=== PATIENT | male | born 1965 | race Caucasian/White ===

== ENCOUNTER 2018-03-01 13:15 | Inpatient (IN) | payer MEDICARE, OTHER ==
[2018-03-01 16:35] VITALS: BMI 31.8
[2018-03-01] MEDS ORDERED: Patient's Own Med (Arformoterol [Brovana] 15 MCG) IH SCH (17:30)
[2018-03-01] MEDS ORDERED: Oxycodone/Acetaminophen 5/325 mg Tab PO PRN (17:33)
[2018-03-01] MEDS ORDERED: Nasal Spray(Ocean spray) NAS PRN (17:33)
[2018-03-01] MEDS: Morphine 15 mg Immediate Release Tab PO PRN (19:54)
[2018-03-01] MEDS: Budesonide 0.5 mg/2 ml Inhal Susp UD IH SCH (20:00)
[2018-03-01] MEDS: Albuterol-Ipratrop 3 mg / 0.5 (3 ml) UD IH PRN (20:00)
[2018-03-01] MEDS: Insulin NPH Human 100 Units/ml Inj SC SCH (21:25)
[2018-03-01] MEDS: Insulin Regular 100 units/ml SC SCH (21:27)
[2018-03-01] MEDS: Latanoprost 0.005% Opht SOUTION OU SCH (22:20)
--- NOTE | 2018-03-02 04:50 | CP.PCM.HP ---
History of Present Illness - History of Present Illness History of Present Illness: CC: Acute Rehab for after Right Foot BKA A 52 M with Multiple Medical Problems recently s/p transmetatarsal amputation of the right foot (02/02/18) due to wet gangrene to the right foot and bone exposure. He is on Dual antiplatelet for recent cardiac stent in September. During subsequent podiatry follow up while pt was in Subacute rehab stay [facility], he was found to have worsened foot wound filled with blood clot and bone exposure in the plantar of R foot.and patient was hospitalized in [facility] and BKA was done. Transferred to [facility] for Acute Rehab. Currently No complaint. Completed IV antibiotics for Amputated site Infection, and antifungal for Fungemia. Denies fever or chills. Present on Admission - Present on Admission Any Indicators Present on Admission: Yes History of Uncontrolled Diabetes: Yes Review of Systems - Review of Systems All systems: reviewed and no additional remarkable complaints except Review of Systems: As Per HPI Past Patient History - Infectious Disease Hx of Infectious Diseases: None - Tetanus Immunizations Tetanus Immunization: Up to Date - Past Medical History & Family History Past Medical History?: Yes - Past Social History Smoking Status: Never Smoked Alcohol: None Drugs: Denies - CARDIAC Hx Circulatory Problems: Yes (pvd) Hx Hypertension: Yes Hx Pacemaker: Yes (medtronic) Other/Comment: 2 stent placement - PULMONARY Hx Asthma: Yes Hx Chronic Obstructive Pulmonary Disease (COPD): Yes - NEUROLOGICAL HX Cerebrovascular Accident: Yes (r side weakness) - HEENT Hx HEENT Problems: Yes (BILATERAL EYE WITH BLURRY VISION) Hx Cataracts: Yes (HAD SX 09/25/12, r with iol) Hx Epistaxis: Yes Other/Comment: left eye cornea transplant,RENAL RETINOPATHY, glasses, blurred vision - RENAL Hx Dialysis: Yes Date of Last Dialysis Treatment: 02/28/18 Hx Renal Failure: Yes - ENDOCRINE/METABOLIC Hx Diabetes Mellitus Type 1: Yes Hx Diabetes Mellitus Type 2: Yes Hx Hypothyroidism: Yes - HEMATOLOGICAL/ONCOLOGICAL Hx AIDS: No Hx Anemia: Yes Hx Blood Transfusions: Yes Hx Blood Transfusion Reaction: No Hx Human Immunodeficiency Virus (HIV): No - INTEGUMENTARY Hx Dermatological Problems: Yes Other/Comment: generalized multiple skin discolorations and dry wounds over body , rle r ft dressing dry and intact all toes amputated chronic wound ulceration and foul odor heel ulceration gangrrene and bone exposed, rle skin discolorations +1 edema and tightness, inner right ankle1.5cm x 0.5cm deep red dry wound surrounded by pink red skin throbbing pain, healing small wounds to sacrum and b/l 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,left hand 3rd finger 0/7cm x 0.5cm round dry brown wound, dry brown wound 1.5cm x 1.5cm to ball of left foot not opened - MUSCULOSKELETAL/RHEUMATOLOGICAL Hx Falls: Yes - GASTROINTESTINAL Hx Gastrointestinal Disorders: Yes (cdif 05/13/17) Hx Gall Bladder Disease: Yes (CHOLECYSTECTOMY) Hx Gastroesophageal Reflux: Yes Hx Liver Failure: Yes (CKD) Hx Pancreatitis: Yes Other/Comment: colon polyps, poor appetite - GENITOURINARY/GYNECOLOGICAL Hx Genitourinary Disorders: Yes (esrd on HD MWF) Hx Hematuria: Yes Hx Prostate Problems: Yes (bph) Hx Urinary Tract Infection: Yes - PSYCHIATRIC Hx Substance Use: No - SURGICAL HISTORY Hx Surgeries: Yes - ANESTHESIA Hx Anesthesia: Yes Hx Anesthesia Reactions: No Hx Malignant Hyperthermia: No Has any member of the family had a problem w/ anesthesia?: No Meds Allergies/Adverse Reactions: Allergies Allergy/AdvReac Type Severity Reaction Status Date / Time insulin aspart [From Novolog] Allergy Intermediate RASH Verified 03/01/18 16:57 moxifloxacin Allergy Intermediate RASH Verified 03/01/18 16:57 Penicillins Allergy Intermediate RASH Verified 03/01/18 16:57 insulin regular Allergy ITCHING Verified 03/01/18 16:57 [From Novolin R Regular U-100 Insuln] Physical Exam - Constitutional Appears: Well, No Acute Distress, Chronically Ill - Head Exam Head Exam: ATRAUMATIC, NORMAL INSPECTION, NORMOCEPHALIC - Eye Exam Eye Exam: EOMI, Normal appearance, PERRL Pupil Exam: NORMAL ACCOMODATION, PERRL - ENT Exam ENT Exam: Mucous Membranes Moist, Normal Exam - Neck Exam Neck exam: Positive for: Normal Inspection - Respiratory Exam Respiratory Exam: Clear to Auscultation Bilateral, NORMAL BREATHING PATTERN - Cardiovascular Exam Cardiovascular Exam: REGULAR RHYTHM, +S1, +S2 - GI/Abdominal Exam GI & Abdominal Exam: Normal Bowel Sounds, Soft. absent: Tenderness - Extremities Exam Additional comments: Left BKA, and stump dressed and Clean - Back Exam Back exam: NORMAL INSPECTION - Neurological Exam Neurological exam: Alert, CN II-XII Intact, Normal Gait, Oriented x3, Reflexes Normal - Psychiatric Exam Psychiatric exam: Normal Affect, Normal Mood - Skin Skin Exam: Dry, Intact, Normal Color, Warm Results - Vital Signs Recent Vital Signs: Last Vital Signs Temp 97.9 F 03/01/18 20:08 Pulse 64 03/01/18 20:08 Resp 18 03/01/18 20:08 BP 105/59 L 03/01/18 20:08 Pulse Ox 99 03/01/18 20:08 - Labs Labs: Laboratory Results - last 24 hr 03/01/18 03/01/18 03/02/18 17:59 21:07 02:47 POC Glucose (mg/dL) 214 H 343 H 290 H Assessment & Plan (1) S/P BKA (below knee amputation) unilateral Assessment and Plan: Continue Wound Care Surgery Consult, Doctor Of Optometry Consulted Status: Acute (2) Hypertensive CKD, ESRD on dialysis Assessment and Plan: Nephro consult for HD MWF Status: Chronic Priority: Medium (3) Hypertension Status: Chronic Priority: Medium (4) Diabetes Status: Chronic Priority: Medium (5) CAD (coronary artery disease) Status: Chronic - Assessment and Plan (Free Text) Plan: Continue all Medications as Before Will adjust as needed
[2018-03-02] MEDS: Morphine 15 mg Immediate Release Tab PO PRN ×3 (06:10→19:55)
[2018-03-02] MEDS: Pantoprazole 20 mg EC Tab PO SCH (06:10)
[2018-03-02] MEDS: Levothyroxine 25 MCG TAB PO SCH (06:10)
--- NOTE | 2018-03-02 06:32 | CON ---
Copied To: Sebastian Wan MD Attending MD: Sebastian Wan MD DATE: 03/01/2018 NEPHROLOGY CONSULTATION LOCATION: [facility]. HISTORY OF PRESENT ILLNESS: The patient is a 52-year-old male with past medical history of CAD, status post stent (09/2017); hypertension; diabetes; peripheral vascular disease; status post CVA; EMELI, not on CPAP; COPD with several pulmonary hypertension; and ESRD, on hemodialysis (Monday, Monday and Monday at [facility] under Dr. Marshall), admitted to subacute rehab following prolonged hospital course. Nephrology being consulted for ESRD care. The patient is status post transmetatarsal amputation of right foot on 02/02/2018 due to wet gangrene. The patient was subsequently discharged to subacute rehab. On subsequent podiatry followup, the patient was found to have bone exposure of plantar surface of right foot and with right lower extremity stump with nonhealing wound. The patient subsequently was admitted for right BKA at [facility]. Surgery was delayed because the patient developed fungemia. Hospital course was also complicated by thrombocytopenia. The patient did undergo right BKA on 02/26/2018. The patient was subsequently admitted to [facility] Subacute [facility]hab. The patient currently reporting some shortness of breath. Has been on 4 liters nasal cannula oxygen since the past several months. The patient's appetite has been decreased lately. Otherwise, denies nausea, vomiting, or constipation. The patient reports usually getting about 3 to 3.5 liters ultrafiltration on hemodialysis and tolerating it well. PAST MEDICAL HISTORY: As above. SOCIAL HISTORY: Concern for substance abuse; FAMILY HISTORY: Mother ESRD, on hemodialysis. REVIEW OF SYSTEMS: CONSTITUTIONAL: Decreased appetite. No epistaxis reported. RESPIRATORY: Reporting dyspnea. CARDIOVASCULAR: Has extensive CAD history, reporting intermittent chest pressure. GASTROINTESTINAL: As per HPI. GENITOURINARY: Anuric. MUSCULOSKELETAL: Complaining of pain at affected amputation site. PSYCHIATRIC: Has issues with anxiety. NEUROLOGIC: Symptoms consistent with neuropathy. PHYSICAL EXAMINATION: VITAL SIGNS: This afternoon: Blood pressure 113/50, heart rate 67, respirations 20, temperature 97.8, and O2 sat 99% on 4 L via nasal cannula oxygen. GENERAL: No distress. Conversing coherently in full sentences. HEENT: Moist mucous membranes. Nonicteric. No cervical lymphadenopathy. RESPIRATORY: Lungs with minimal basal rales bilaterally, otherwise clear. No respiratory distress. No rhonchi. No wheezes. CARDIOVASCULAR: Systolic murmur present. Regular rate and rhythm. GASTROINTESTINAL: Abdomen is soft, nontender, nondistended. GENITOURINARY: No overt bladder distention. EXTREMITIES: Moderate bilateral leg edema, particularly in dependent areas. SKIN: Warm. No cyanosis. NEUROLOGIC: No obvious tremor. PSYCHIATRIC: Normal mood. Normal affect. LABORATORY DATA: Labs from this morning: CBC: WBC 5.8, hemoglobin 8.9, hematocrit 27.1, platelets 136. Chemistry panel: Sodium 137, potassium 3.7, chloride 100, bicarb 28, BUN 26, creatinine 4.7, glucose 209, calcium 7.7, phosphorus 3.9. AST 52, ALT 27, albumin 2.4. Iron studies from late last month: Iron 140, TIBC 220, saturation 64%, ferritin 659. Chest x-ray from yesterday showing cardiomegaly, otherwise no significant pulmonary vascular congestion. ASSESSMENT AND PLAN: 1. End-stage renal disease, on hemodialysis. The patient with relatively stable volume and electrolyte status. We will dialyze per routine on Monday, Monday and Monday schedule with ultrafiltration goal of three liters over three and a half hours. 2. Hypertensive end-stage renal disease. Blood pressure currently controlled with the patient on hydralazine 25 mg b.i.d., metoprolol 25 mg b.i.d. Can continue the same. 3. Anemia of chronic disease/end-stage renal disease. The patient is iron replete. We will give EPO 10,000 units on dialysis three times per week. 4. Chronic kidney disease, mineral bone disorder. Phosphorus is currently controlled. The patient is on sevelamer two tablets with each meal. Continue the same. We will check parathyroid hormone level. 5. Pulmonary hypertension. The patient with markedly elevated pulmonary artery pressures on recent echocardiogram. We will attempt to keep euvolemic on examination to avoid right ventricular pressure overload. Thank you for this referral. We will be following up closely. Sebastian Wan MD [facility] # [id number]
[2018-03-02] MEDS: SEVELAMER CARBONATE 800 MG PO SCH ×4 (07:10→19:41)
[2018-03-02] MEDS: Insulin Regular 100 units/ml SC SCH ×4 (07:11→22:00)
[2018-03-02] MEDS: Budesonide 0.5 mg/2 ml Inhal Susp UD IH SCH ×2 (07:56→18:57)
--- NOTE | 2018-03-02 09:17 | PCM.OPOC ---
Physiatry Overall Plan of Care - Overall Plan of Care Estimated Length of Stay in Weeks: 3 Rehab Impairment: Mobility, Gait, Balance, Coordination Etiologic Diagnosis: Amputee Rehab/Medical Prognosis: Fair - Anticipated Interventions Physical Therapy:: Yes Occupational Therapy:: Yes Speech Therapy:: No Recreational Therapy:: Yes - Therapy Goals Bed Mobility: Supervision Ambulation: Contact Guard Functional Positional Changes:: Supervision - Discharge Plan Identification of Barriers to Discharge: Home Situation Discharge Destination: Home
--- NOTE | 2018-03-02 09:20 | CP.PCM.CON ---
History of Present Illness - History of Present Illness History of Present Illness: Dr Harmon PMR consultation on Ameya Oakes, born 1965, who has been admitted to [facility] for acute inpatient rehabilitation following an admission at [facility] with necrotic right foot. He underwent a BKA. Post op stable. Patient with severe medical co-morbidities. HTN, DM, ESRD on HD, anemia, COPD, CAD s/ p stent, PVD, PPM, peripheral neuropathy. Review of Systems - Constitutional Constitutional: absent: Anorexia, Chills - EENT Eyes: absent: Change in Vision Ears: absent: Decreased Hearing, Ear Discharge, Ear Pain Nose/Mouth/Throat: absent: Nasal Congestion - Cardiovascular Cardiovascular: absent: Chest Pain - Respiratory Respiratory: absent: Dyspnea - Gastrointestinal Gastrointestinal: Bloating, Diarrhea. 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) - CARDIAC Hx Circulatory Problems: Yes (pvd) Hx Hypertension: Yes Hx Pacemaker: Yes (medtronic) Other/Comment: 2 stent placement - PULMONARY Hx Asthma: Yes Hx Chronic Obstructive Pulmonary Disease (COPD): Yes - NEUROLOGICAL HX Cerebrovascular Accident: Yes (r side weakness) - HEENT Hx HEENT Problems: Yes (BILATERAL EYE WITH BLURRY VISION) Hx Cataracts: Yes (HAD SX 09/25/12, r with iol) Hx Epistaxis: Yes Other/Comment: left eye cornea transplant,RENAL RETINOPATHY, glasses, blurred vision - RENAL Hx Dialysis: Yes Date of Last Dialysis Treatment: 02/28/18 Hx Renal Failure: Yes - ENDOCRINE/METABOLIC Hx Diabetes Mellitus Type 1: Yes Hx Diabetes Mellitus Type 2: Yes Hx Hypothyroidism: Yes - HEMATOLOGICAL/ONCOLOGICAL Hx AIDS: No Hx Anemia: Yes Hx Blood Transfusions: Yes Hx Blood Transfusion Reaction: No Hx Human Immunodeficiency Virus (HIV): No - INTEGUMENTARY Hx Dermatological Problems: Yes Other/Comment: generalized multiple skin discolorations and dry wounds over body , rle r ft dressing dry and intact all toes amputated chronic wound ulceration and foul odor heel ulceration gangrrene and bone exposed, rle skin discolorations +1 edema and tightness, inner right ankle1.5cm x 0.5cm deep red dry wound surrounded by pink red skin throbbing pain, 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,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 3rd finger 0/7cm x 0.5cm round dry brown wound, dry brown wound 1.5cm x 1.5cm to ball of left foot not opened - MUSCULOSKELETAL/RHEUMATOLOGICAL Hx Falls: Yes - GASTROINTESTINAL Hx Gastrointestinal Disorders: Yes (cdif 05/13/17) Hx Gall Bladder Disease: Yes (CHOLECYSTECTOMY) Hx Gastroesophageal Reflux: Yes Hx Liver Failure: Yes (CKD) Hx Pancreatitis: Yes Other/Comment: colon polyps, poor appetite - GENITOURINARY/GYNECOLOGICAL Hx Genitourinary Disorders: Yes (esrd on HD MWF) Hx Hematuria: Yes Hx Prostate Problems: Yes (bph) Hx Urinary Tract Infection: Yes - PSYCHIATRIC Hx Substance Use: No - SURGICAL HISTORY Hx Surgeries: Yes - ANESTHESIA Hx Anesthesia: Yes Hx Anesthesia Reactions: No Hx Malignant Hyperthermia: No Has any member of the family had a problem w/ anesthesia?: No Meds Allergies/Adverse Reactions: Allergies Allergy/AdvReac Type Severity Reaction Status Date / Time insulin aspart [From Novolog] Allergy Intermediate RASH Verified 03/01/18 16:57 moxifloxacin Allergy Intermediate RASH Verified 03/01/18 16:57 Penicillins Allergy Intermediate RASH Verified 03/01/18 16:57 insulin regular Allergy ITCHING Verified 03/01/18 16:57 [From Novolin R Regular U-100 Insuln] - Medications Medications: Current Medications Albuterol/Ipratropium (Duoneb 3 Mg/0.5 Mg (3 Ml) Ud) 3 ml IH RQ6 PRN PRN Reason: Shortness of Breath Last Admin: 03/01/18 20:00 Dose: 3 ml Aspirin (Ecotrin) 81 mg PO DAILY KAY Atorvastatin Calcium (Lipitor) 40 mg PO HS KAY Last Admin: 03/01/18 22:19 Dose: 40 mg Bacitracin (Bacitracin) 1 ea TOP BID KAY Budesonide (Pulmicort Respules) 0.5 mg IH Q12H KAY Last Admin: 03/02/18 07:56 Dose: 0.5 mg Diphenhydramine HCl (Benadryl) 25 mg PO HS PRN PRN Reason: Insomnia Last Admin: 03/01/18 22:20 Dose: 25 mg Epoetin Sudeep (Procrit) 10,000 unit IV MWF [facility] Ergocalciferol (Drisdol 50,000 Intl Units Cap) 1 cap PO WED [facility] Fenofibrate (Tricor) 145 mg PO DAILY [facility] Guaifenesin (Mucinex La) 600 mg PO BID [facility] Home Med (Arformoterol [Brovana]) 15 mcg IH Q12H [facility] Home Med (Patient's Own Medication) 1,600 unit PO WM [facility] Last Admin: 03/02/18 07:10 Dose: 1,600 unit Hydralazine HCl (Apresoline) 25 mg PO BID [facility] Insulin Human NPH (Humulin N) 25 units SC QPM [facility] Last Admin: 03/01/18 21:25 Dose: 25 units Insulin Human Regular (Humulin R) 0 units SC ACHS [facility] PRN Reason: Protocol Last Admin: 03/02/18 07:11 Dose: 8 units Latanoprost (Xalatan Opht) 1 drop OU HS [facility] Last Admin: 03/01/18 22:20 Dose: 1 drop Levothyroxine Sodium (Synthroid) 25 mcg PO 0630 [facility] Last Admin: 03/02/18 06:10 Dose: 25 mcg Loratadine (Claritin) 10 mg PO [facility] Last Admin: 03/01/18 22:19 Dose: 10 mg Metoprolol Tartrate (Lopressor) 25 mg PO BID [facility] Montelukast Sodium (Singulair) 10 mg PO HS [facility] Last Admin: 03/01/18 22:19 Dose: 10 mg Morphine Sulfate (Morphine Immediate Release Tab) 15 mg PO Q4 PRN PRN Reason: Pain scale 4-10 Last Admin: 03/02/18 06:10 Dose: 15 mg Multivitamins/Minerals (Therapeutic-M Tab) 1 tab PO DAILY [facility] Easch-5-Vfsa Ethyl Esters (Lovaza) 2 gm PO BID [facility] Ondansetron HCl (Zofran Inj) 4 mg IVP Q6H PRN PRN Reason: Nausea/Vomiting Pantoprazole Sodium (Protonix Ec Tab) 20 mg PO 0600 [facility] Last Admin: 03/02/18 06:10 Dose: 20 mg Pregabalin (Lyrica) 50 mg PO [facility] Last Admin: 08/16/18 22:18 Dose: 50 mg Sodium Chloride ([place] Nasal [place]) 1 sprays HÉCTOR Q2 PRN PRN Reason: nasal congestion. Tamsulosin HCl (Flomax) 0.4 mg PO HS [facility] Last Admin: 03/01/18 22:19 Dose: 0.4 mg Ticagrelor (Brilinta) 90 mg PO BID [facility] Physical Exam - Constitutional Appears: Non-toxic, No Acute Distress - Head Exam Head Exam: ATRAUMATIC, NORMAL INSPECTION, NORMOCEPHALIC - Eye Exam Eye Exam: EOMI Pupil Exam: NORMAL ACCOMODATION - ENT Exam ENT Exam: Mucous Membranes Moist - Respiratory Exam Respiratory Exam: NORMAL BREATHING PATTERN - Cardiovascular Exam Cardiovascular Exam: REGULAR RHYTHM - GI/Abdominal Exam GI & Abdominal Exam: Distended. absent: Firm, Guarding - Extremities Exam Extremities exam: Negative for: calf tenderness (left LE; right residual limb, jojo CDI with small lateral skin tear) - Neurological Exam Neurological exam: Alert, CN II-XII Intact, Oriented x3 - Psychiatric Exam Psychiatric exam: Normal Affect - Skin Skin Exam: Warm Results - Vital Signs Recent Vital Signs: Last Vital Signs Temp 97.0 F L 03/02/18 07:33 Pulse 66 03/02/18 07:33 Resp 20 03/02/18 07:33 BP 98/64 L 03/02/18 07:33 Pulse Ox 99 03/02/18 07:33 - Labs Labs: Laboratory Results - last 24 hr 03/01/18 03/01/18 03/02/18 17:59 21:07 02:47 POC Glucose (mg/dL) 214 H 343 H 290 H 03/02/18 06:18 POC Glucose (mg/dL) 306 H Assessment & Plan - Assessment and Plan (Free Text) Plan: 52 year old with right BKA and a myriad of significant co-morbidities PT/OT to continue to help increase functional independence Team conference for d/c planning Pain: controlled Vascular: no evidence of DVT GI: No evidence of constipation or diarrhea Wound: Has a stage II sacral ulcer that is smaller than pea-sized. Will cover with allevyn adhesive. Lateral aspect of residual limb will clean with peroxide and put on silvadene Patient is an excellent acute rehabilitation candidate and will have focused pain management, wound care, PT, OT and recreational therapy to help facilitate a safe and appropriate d/c plan Impairment code: 05.4
[2018-03-02] MEDS: Omega-3-Acid Ethyl Esters 1 GM Cap PO SCH ×2 (10:05→17:26)
[2018-03-02] MEDS: Bacitracin 500 Units/gm Oint Foilpak UD TOP SCH ×2 (10:05→17:22)
[2018-03-02] MEDS: Multivitamin With Minerals Tab PO SCH (10:06)
[2018-03-02] MEDS: guaiFENesin 600 mg ER Tab PO SCH ×2 (10:06→17:28)
[2018-03-02] MEDS: Insulin NPH Human 100 Units/ml Inj SC SCH (17:26)
[2018-03-02] MEDS ORDERED: oxyCODONE 5 mg Immediate Release Tab PO ONE (21:59)
[2018-03-02] MEDS: EPOETIN ALFA 10,000 UNIT/ML ML IV SCH (22:11)
[2018-03-03] MEDS: Morphine 15 mg Immediate Release Tab PO PRN ×3 (01:51→21:12)
[2018-03-03] MEDS: Latanoprost 0.005% Opht SOUTION OU SCH ×2 (01:55→21:15)
[2018-03-03] MEDS: Levothyroxine 25 MCG TAB PO SCH (06:21)
[2018-03-03] MEDS: Pantoprazole 20 mg EC Tab PO SCH (06:21)
--- NOTE | 2018-03-03 06:39 | CP.PCM.PN ---
Subjective - Date & Time of Evaluation Date of Evaluation: 03/02/18 Time of Evaluation: 15:30 - Subjective Subjective: Patient seen before HD today; reported vomiting his supper, tolerated lunch; sob improved; Objective - Vital Signs/Intake and Output Vital Signs (last 24 hours): Temp Pulse Resp BP Pulse Ox 97.3 F L 63 20 122/54 L 98 03/02/18 19:48 03/02/18 19:48 03/02/18 19:48 03/02/18 19:48 03/02/18 19:48 - Medications Medications: Current Medications Albuterol/Ipratropium (Duoneb 3 Mg/0.5 Mg (3 Ml) Ud) 3 ml IH RQ6 PRN PRN Reason: Shortness of Breath Last Admin: 03/01/18 20:00 Dose: 3 ml Aspirin (Ecotrin) 81 mg PO DAILY [facility] Last Admin: 03/02/18 10:04 Dose: 81 mg Atorvastatin Calcium (Lipitor) 40 mg PO HS [facility] Last Admin: 03/03/18 01:52 Dose: 40 mg Bacitracin (Bacitracin) 1 ea TOP BID [facility] Last Admin: 03/02/18 17:22 Dose: 1 ea Budesonide (Pulmicort Respules) 0.5 mg IH Q12H [facility] Last Admin: 03/02/18 18:57 Dose: 0.5 mg Diphenhydramine HCl (Benadryl) 25 mg PO HS PRN PRN Reason: Insomnia Last Admin: 03/01/18 22:20 Dose: 25 mg Epoetin Sudeep (Procrit) 10,000 unit IV MWF [facility] Last Admin: 03/02/18 22:11 Dose: 10,000 unit Ergocalciferol (Drisdol 50,000 Intl Units Cap) 1 cap PO WED [facility] Fenofibrate (Tricor) 145 mg PO DAILY [facility] Last Admin: 03/02/18 10:07 Dose: 145 mg Guaifenesin (Mucinex La) 600 mg PO BID [facility] Last Admin: 03/02/18 17:28 Dose: 600 mg Home Med (Arformoterol [Brovana]) 15 mcg IH Q12H [facility] Home Med (Patient's Own Medication) 1,600 unit PO WM [facility] Last Admin: 03/02/18 19:41 Dose: Not Given Hydralazine HCl (Apresoline) 25 mg PO BID [facility] Last Admin: 03/02/18 17:22 Dose: Not Given Hydrogen Peroxide (Hydrogen Peroxide 237ml) 0 ml TP 0600 [facility] Insulin Human NPH (Humulin N) 25 units SC QPM [facility] Last Admin: 03/02/18 17:26 Dose: Not Given Insulin Human Regular (Humulin R) 0 units SC ACHS [facility] PRN Reason: Protocol Last Admin: 03/02/18 22:00 Dose: Not Given Latanoprost (Xalatan Opht) 1 drop OU HS [facility] Last Admin: 03/03/18 01:55 Dose: 1 drop Levothyroxine Sodium (Synthroid) 25 mcg PO 0630 [facility] Last Admin: 03/03/18 06:21 Dose: 25 mcg Loratadine (Claritin) 10 mg PO [facility] Last Admin: 03/03/18 01:52 Dose: 10 mg Metoprolol Tartrate (Lopressor) 25 mg PO BID [facility] Last Admin: 03/02/18 17:27 Dose: Not Given Montelukast Sodium (Singulair) 10 mg PO [facility] Last Admin: 03/03/18 01:52 Dose: 10 mg Morphine Sulfate (Morphine Immediate Release Tab) 15 mg PO Q4 PRN PRN Reason: Pain scale 4-10 Last Admin: 03/03/18 01:51 Dose: 15 mg Multivitamins/Minerals (Therapeutic-M Tab) 1 tab PO DAILY [facility] Last Admin: 03/02/18 10:06 Dose: 1 tab [id number] Ethyl Esters (Lovaza) 2 gm PO BID [facility] Last Admin: 03/02/18 17:26 Dose: 2 gm Ondansetron HCl (Zofran Inj) 4 mg IVP Q6H PRN PRN Reason: Nausea/Vomiting Pantoprazole Sodium (Protonix Ec Tab) 20 mg PO 0600 [facility] Last Admin: 03/03/18 06:21 Dose: 20 mg Pregabalin (Lyrica) 50 mg PO [facility] Last Admin: 03/03/18 01:55 Dose: 50 mg Silver Sulfadiazine (Silvadene 1% 20 Gm) 1 ea TOP 0600 [facility] Sodium Chloride ([place] Nasal [place]) 1 sprays HÉCTOR Q2 PRN PRN Reason: nasal congestion. Last Admin: 03/02/18 10:02 Dose: 1 spray Tamsulosin HCl (Flomax) 0.4 mg PO [facility] Last Admin: 03/03/18 01:52 Dose: 0.4 mg Ticagrelor (Brilinta) 90 mg PO BID [facility] Last Admin: 03/02/18 17:27 Dose: 90 mg - Constitutional Appears: Non-toxic, No Acute Distress - Eye Exam Eye Exam: Normal appearance - Respiratory Exam Respiratory Exam: Rales. absent: Respiratory Distress - Cardiovascular Exam Cardiovascular Exam: RRR, +S1, +S2. absent: Gallop - GI/Abdominal Exam GI & Abdominal Exam: Soft. absent: Distended, Tenderness - Extremities Exam Additional comments: moderately edematous b/l legs; - Neurological Exam Neurological Exam: Alert, Awake - Psychiatric Exam Psychiatric exam: Normal Mood. absent: Agitated - Skin Skin Exam: Warm. absent: Cyanosis Assessment and Plan (1) ESRD on hemodialysis Assessment & Plan: Stable electrolyte and volume status; continuing HD on MWF schedule; Status: Acute (2) Hypertensive CKD, ESRD on dialysis Assessment & Plan: BP controlled, continue current meds; Status: Acute (3) Anemia in CKD (chronic kidney disease) Assessment & Plan: Hgb below goal; continue EPO on HD; Status: Acute (4) Chronic kidney disease-mineral and bone disorder Assessment & Plan: On sevelamer 2 tabs with meals, continue; checking PTH level; Status: Acute
--- NOTE | 2018-03-03 06:55 | CP.PCM.PN ---
<Lennox Hair B - Last Filed: 03/03/18 06:54> Subjective - Date & Time of Evaluation Date of Evaluation: 03/02/18 Time of Evaluation: 16:25 Objective - Vital Signs/Intake and Output Vital Signs (last 24 hours): Temp Pulse Resp BP Pulse Ox 97.3 F L 63 20 122/54 L 98 03/02/18 19:48 03/02/18 19:48 03/02/18 19:48 03/02/18 19:48 03/02/18 19:48 - Medications Medications: Current Medications Albuterol/Ipratropium (Duoneb 3 Mg/0.5 Mg (3 Ml) Ud) 3 ml IH RQ6 PRN PRN Reason: Shortness of Breath Last Admin: 03/01/18 20:00 Dose: 3 ml Aspirin (Ecotrin) 81 mg PO DAILY [facility] Last Admin: 03/02/18 10:04 Dose: 81 mg Atorvastatin Calcium (Lipitor) 40 mg PO HS [facility] Last Admin: 03/03/18 01:52 Dose: 40 mg Bacitracin (Bacitracin) 1 ea TOP BID [facility] Last Admin: 03/02/18 17:22 Dose: 1 ea Budesonide (Pulmicort Respules) 0.5 mg IH Q12H [facility] Last Admin: 03/02/18 18:57 Dose: 0.5 mg Diphenhydramine HCl (Benadryl) 25 mg PO HS PRN PRN Reason: Insomnia Last Admin: 03/01/18 22:20 Dose: 25 mg Epoetin Sudeep (Procrit) 10,000 unit IV MWF [facility] [place] Last Admin: 03/02/18 22:11 Dose: 10,000 unit Ergocalciferol (Drisdol 50,000 Intl Units Cap) 1 cap PO WED [facility] Fenofibrate (Tricor) 145 mg PO DAILY [facility] Last Admin: 03/02/18 10:07 Dose: 145 mg Guaifenesin (Mucinex La) 600 mg PO BID [facility] Last Admin: 03/02/18 17:28 Dose: 600 mg Home Med (Arformoterol [Brovana]) 15 mcg IH Q12H [facility] Home Med (Patient's Own Medication) 1,600 unit PO WM [facility] Last Admin: 03/02/18 19:41 Dose: Not Given Hydralazine HCl (Apresoline) 25 mg PO BID [facility] Last Admin: 03/02/18 17:22 Dose: Not Given Hydrogen Peroxide (Hydrogen Peroxide 237ml) 0 ml TP 0600 [facility] Insulin Human NPH (Humulin N) 25 units SC QPM [facility] Last Admin: 03/02/18 17:26 Dose: Not Given Insulin Human Regular (Humulin R) 0 units SC ACHS [facility] PRN Reason: Protocol Last Admin: 03/02/18 22:00 Dose: Not Given Latanoprost (Xalatan Opht) 1 drop OU [facility] Last Admin: 03/03/18 01:55 Dose: 1 drop Levothyroxine Sodium (Synthroid) 25 mcg PO 0630 [facility] Last Admin: 03/03/18 06:21 Dose: 25 mcg Loratadine (Claritin) 10 mg PO [facility] Last Admin: 03/03/18 01:52 Dose: 10 mg Metoprolol Tartrate (Lopressor) 25 mg PO BID [facility] Last Admin: 03/02/18 17:27 Dose: Not Given Montelukast Sodium (Singulair) 10 mg PO [facility] Last Admin: 03/03/18 01:52 Dose: 10 mg Morphine Sulfate (Morphine Immediate Release Tab) 15 mg PO Q4 PRN PRN Reason: Pain scale 4-10 Last Admin: 03/03/18 01:51 Dose: 15 mg Multivitamins/Minerals (Therapeutic-M Tab) 1 tab PO DAILY [facility] Last Admin: 03/02/18 10:06 Dose: 1 tab [place]qoi-5-Vgid Ethyl Esters (Lovaza) 2 gm PO BID [facility] Last Admin: 03/02/18 17:26 Dose: 2 gm Ondansetron HCl (Zofran Inj) 4 mg IVP Q6H PRN PRN Reason: Nausea/Vomiting Pantoprazole Sodium (Protonix Ec Tab) 20 mg PO 0600 [facility] Last Admin: 03/03/18 06:21 Dose: 20 mg Pregabalin (Lyrica) 50 mg PO [facility] Last Admin: 03/03/18 01:55 Dose: 50 mg Silver Sulfadiazine (Silvadene 1% 20 Gm) 1 ea TOP 0600 [facility] Sodium Chloride ([place] Nasal [place]) 1 sprays HÉCTOR Q2 PRN PRN Reason: nasal congestion. Last Admin: 03/02/18 10:02 Dose: 1 spray Tamsulosin HCl (Flomax) 0.4 mg PO [facility] Last Admin: 03/03/18 01:52 Dose: 0.4 mg Ticagrelor (Brilinta) 90 mg PO BID [facility] Last Admin: 03/02/18 17:27 Dose: 90 mg <CarleeGabino L - Last Filed: 03/12/18 05:40> Subjective - Subjective Subjective: Patient complains of diarrhea Desires to have some meds removed from the list Doing well with PT. Objective - Vital Signs/Intake and Output Vital Signs (last 24 hours): Temp Pulse Resp BP Pulse Ox 97.7 F 82 20 113/53 L 97 03/11/18 20:54 03/11/18 20:54 03/11/18 20:54 03/11/18 20:54 03/11/18 20:54 Intake and Output: 03/11/18 03/12/18 18:59 06:59 Intake Total 520 Balance 520 - Medications Medications: Current Medications Albuterol/Ipratropium (Duoneb 3 Mg/0.5 Mg (3 Ml) Ud) 3 ml IH RQ6 PRN PRN Reason: Shortness of Breath Last Admin: 03/04/18 08:35 Dose: 3 ml Alprazolam (Xanax) 0.25 mg PO HS PRN PRN Reason: Anxiety Stop: 03/17/18 14:38 Aspirin (Ecotrin) 81 mg PO DAILY [facility] Last Admin: 03/11/18 08:57 Dose: 81 mg Atorvastatin Calcium (Lipitor) 40 mg PO HS [facility] Last Admin: 03/11/18 21:02 Dose: 40 mg Bacitracin (Bacitracin) 1 ea TOP BID [facility] Last Admin: 03/11/18 17:05 Dose: 1 ea Capsaicin (Trixaicin Cream) 1 applic TOP Q6 PRN PRN Reason: bilateral wrist pain Last Admin: 03/10/18 17:15 Dose: 1 applic Dextrose (Dextrose 50% Inj) 0 ml IV STAT PRN; Protocol PRN Reason: Hypoglycemia Protocol Dextrose (Glutose 15) 0 gm PO ONCE PRN; Protocol PRN Reason: Hypoglycemia Protocol Dimethicone (Proshield Plus Skin Protectant) 1 applic TOP Q8 [facility] Last Admin: 03/12/18 05:21 Dose: 1 applic Diphenhydramine HCl (Benadryl) 25 mg PO HS PRN PRN Reason: Insomnia Last Admin: 03/09/18 21:11 Dose: 25 mg Diphenoxylate HCl/Atropine (Lomotil 0.025-2.5 Mg Tablet) 2 tab PO Q12 [facility] Last Admin: 03/11/18 21:13 Dose: 2 tab Epoetin Sudeep (Procrit) 10,000 unit IV MWF [facility] Last Admin: 03/09/18 15:24 Dose: 10,000 unit Ergocalciferol (Drisdol 50,000 Intl Units Cap) 1 cap PO WED [facility] Fenofibrate (Tricor) 145 mg PO DAILY [facility] Last Admin: 03/11/18 08:47 Dose: 145 mg Glucagon (Glucagen Diagnostic Kit) 0 mg IM STAT PRN; Protocol PRN Reason: Hypoglycemia Protocol Hydralazine HCl (Apresoline) 25 mg PO BID [facility] Last Admin: 03/11/18 17:05 Dose: 25 mg Hydrogen Peroxide (Hydrogen Peroxide 3%) 0 ml TP 0600 [facility] Last Admin: 03/12/18 05:21 Dose: 480 ml Insulin Human NPH (Humulin N) 25 units SC QPM [facility] Last Admin: 03/11/18 17:35 Dose: Not Given Insulin Human Regular (Humulin R) 0 units SC ACHS [facility] PRN Reason: Protocol Last Admin: 03/11/18 21:00 Dose: Not Given Latanoprost (Xalatan Opht) 1 drop OU HS [facility] Last Admin: 03/11/18 21:03 Dose: 1 drop Levothyroxine Sodium (Synthroid) 25 mcg PO 0630 [facility] Last Admin: 03/11/18 06:26 Dose: 25 mcg Metoclopramide HCl (Reglan) 5 mg PO 0730,1130,1630 [facility] Last Admin: 03/11/18 17:11 Dose: 5 mg Metoprolol Tartrate (Lopressor) 25 mg PO BID [facility] Last Admin: 03/11/18 17:10 Dose: 25 mg Montelukast Sodium (Singulair) 10 mg PO HS [facility] Last Admin: 03/11/18 21:03 Dose: 10 mg Morphine Sulfate (Morphine Immediate Release Tab) 15 mg PO Q4 PRN PRN Reason: Pain scale 4-10 Last Admin: 03/11/18 21:13 Dose: 15 mg Multivitamins/Minerals (Therapeutic-M Tab) 1 tab PO DAILY [facility] Last Admin: 03/11/18 08:47 Dose: 1 tab Mupirocin (Bactroban Ointment) 1 applic TOP 0600,1800 [facility] Last Admin: 03/12/18 05:20 Dose: 1 applic Pregabalin (Lyrica) 50 mg PO HS [facility] Last Admin: 03/11/18 21:13 Dose: 50 mg Fluticasone/Salmeterol (Advair Diskus 250/50) 1 puff IH Q12 [facility] Last Admin: 03/11/18 21:00 Dose: 1 puff Sevelamer Carbonate (Renvela) 1,600 mg PO WM@0800,1200,1700 [facility] Last Admin: 03/11/18 17:11 Dose: 1,600 mg Silver Sulfadiazine (Silvadene 1% 20 Gm) 1 ea TOP 0600 [facility] Last Admin: 03/12/18 05:21 Dose: 1 applic Sodium Chloride ([place] Nasal [place]) 1 sprays HÉCTOR Q2 PRN PRN Reason: nasal congestion. Last Admin: 03/02/18 10:02 Dose: 1 spray Ticagrelor (Brilinta) 90 mg PO BID [facility] Last Admin: 03/11/18 17:09 Dose: 90 mg Trazodone HCl (Desyrel) 50 mg PO HS [facility] Last Admin: 03/11/18 21:02 Dose: 50 mg - Labs Labs: 03/05/18 16:55 03/05/18 16:55 - Head Exam Head Exam: NORMAL INSPECTION - Eye Exam Eye Exam: Normal appearance - ENT Exam ENT Exam: Mucous Membranes Moist - Respiratory Exam Respiratory Exam: Clear to Ausculation Bilateral - Cardiovascular Exam Cardiovascular Exam: REGULAR RHYTHM - GI/Abdominal Exam GI & Abdominal Exam: Normal Bowel Sounds - Neurological Exam Neurological Exam: Awake, Oriented x3 Assessment and Plan (1) S/P BKA (below knee amputation) Status: Acute (2) Anemia in CKD (chronic kidney disease) Status: Acute (3) ESRD on hemodialysis Status: Chronic (4) Uncontrolled diabetes mellitus Status: Acute (5) Diarrhea Status: Acute - Assessment and Plan (Free Text) Plan: Cont PT adjust medications Cont HD recheck stool exams.
[2018-03-03] MEDS ORDERED: Dextrose 50% SYRINGE Inj (50 ml) IV PRN (07:03)
[2018-03-03] MEDS ORDERED: Glucagon Recombinant 1 mg Inj IM PRN (07:03)
[2018-03-03] MEDS ORDERED: Dextrose 50% SYRINGE Inj (50 ml) ONE (07:08)
[2018-03-03] MEDS: Budesonide 0.5 mg/2 ml Inhal Susp UD IH SCH ×2 (07:08→19:06)
[2018-03-03] MEDS: SEVELAMER CARBONATE 800 MG PO SCH ×3 (07:48→17:30)
[2018-03-03] MEDS: Insulin Regular 100 units/ml SC SCH ×4 (08:05→21:00)
[2018-03-03] MEDS: Bacitracin 500 Units/gm Oint Foilpak UD TOP SCH ×2 (08:05→17:06)
[2018-03-03] MEDS: Hydrogen Peroxide 237 ML SOL TP SCH (08:06)
[2018-03-03] MEDS: Silver Sulfadiazine 1% Cream (20 gm) TOP SCH (08:07)
[2018-03-03] MEDS: guaiFENesin 600 mg ER Tab PO SCH ×2 (08:32→17:07)
[2018-03-03] MEDS: Multivitamin With Minerals Tab PO SCH (08:36)
[2018-03-03] MEDS: Omega-3-Acid Ethyl Esters 1 GM Cap PO SCH ×2 (08:36→17:06)
[2018-03-03] MEDS: Insulin NPH Human 100 Units/ml Inj SC SCH (17:10)
[2018-03-04] MEDS: Morphine 15 mg Immediate Release Tab PO PRN ×4 (03:51→19:56)
[2018-03-04] MEDS: Insulin Regular 100 units/ml SC SCH ×4 (06:35→21:00)
[2018-03-04] MEDS: Levothyroxine 25 MCG TAB PO SCH (06:37)
[2018-03-04] MEDS: Pantoprazole 20 mg EC Tab PO SCH (06:37)
[2018-03-04] MEDS: Silver Sulfadiazine 1% Cream (20 gm) TOP SCH (06:37)
[2018-03-04] MEDS: Hydrogen Peroxide 237 ML SOL TP SCH (06:53)
[2018-03-04] MEDS: Hydrogen Peroxide 3% Soln (480ml) TP SCH (06:54)
[2018-03-04] MEDS: SEVELAMER CARBONATE 800 MG PO SCH ×3 (08:16→17:41)
[2018-03-04] MEDS: Omega-3-Acid Ethyl Esters 1 GM Cap PO SCH (08:17)
[2018-03-04] MEDS: guaiFENesin 600 mg ER Tab PO SCH (08:17)
[2018-03-04] MEDS: Multivitamin With Minerals Tab PO SCH (08:17)
[2018-03-04] MEDS: Albuterol-Ipratrop 3 mg / 0.5 (3 ml) UD IH PRN (08:35)
[2018-03-04] MEDS: Budesonide 0.5 mg/2 ml Inhal Susp UD IH SCH (08:36)
[2018-03-04] MEDS: Bacitracin 500 Units/gm Oint Foilpak UD TOP SCH ×2 (10:55→17:03)
[2018-03-04] MEDS: Insulin NPH Human 100 Units/ml Inj SC SCH (17:42)
[2018-03-04] MEDS: Fluticasone-Salmeterol 250-50mcg Diskus IH SCH (21:13)
--- NOTE | 2018-03-04 21:13 | CP.PCM.PN ---
Subjective - Date & Time of Evaluation Date of Evaluation: 03/04/18 Time of Evaluation: 16:00 - Subjective Subjective: Reports feeling well; sob improved; still with diarrhea lately; no more vomiting ; Objective - Vital Signs/Intake and Output Vital Signs (last 24 hours): Temp Pulse Resp BP Pulse Ox 97.4 F L 68 20 121/59 L 99 03/04/18 20:00 03/04/18 20:00 03/04/18 20:00 03/04/18 20:00 03/04/18 20:00 - Medications Medications: Current Medications Albuterol/Ipratropium (Duoneb 3 Mg/0.5 Mg (3 Ml) Ud) 3 ml IH RQ6 PRN PRN Reason: Shortness of Breath Last Admin: 03/04/18 08:35 Dose: 3 ml Aspirin (Ecotrin) 81 mg PO DAILY [facility] Last Admin: 03/04/18 08:17 Dose: 81 mg Atorvastatin Calcium (Lipitor) 40 mg PO HS [facility] Last Admin: 03/03/18 21:14 Dose: 40 mg Bacitracin (Bacitracin) 1 ea TOP BID [facility] Last Admin: 03/04/18 17:03 Dose: 1 ea Dextrose (Dextrose 50% Inj) 0 ml IV STAT PRN; Protocol PRN Reason: Hypoglycemia Protocol Dextrose (Glutose 15) 0 gm PO ONCE PRN; Protocol PRN Reason: Hypoglycemia Protocol Diphenhydramine HCl (Benadryl) 25 mg PO HS PRN PRN Reason: Insomnia Last Admin: 03/03/18 23:58 Dose: 25 mg Epoetin Sudeep (Procrit) 10,000 unit IV MWF [facility] Last Admin: 03/02/18 22:11 Dose: 10,000 unit Ergocalciferol (Drisdol 50,000 Intl Units Cap) 1 cap PO WED [facility] Fenofibrate (Tricor) 145 mg PO DAILY [facility] Last Admin: 03/04/18 08:17 Dose: 145 mg Glucagon (Glucagen Diagnostic Kit) 0 mg IM STAT PRN; Protocol PRN Reason: Hypoglycemia Protocol Home Med (Patient's Own Medication) 1,600 unit PO WM [facility] Last Admin: 03/04/18 17:41 Dose: 1,600 unit Hydralazine HCl (Apresoline) 25 mg PO BID [facility] Last Admin: 03/04/18 17:02 Dose: 25 mg Hydrogen Peroxide (Hydrogen Peroxide 3%) 0 ml TP 0600 [facility] Last Admin: 03/04/18 06:54 Dose: 480 ml Insulin Human NPH (Humulin N) 25 units SC QPM [facility] Last Admin: 03/04/18 17:42 Dose: Not Given Insulin Human Regular (Humulin R) 0 units SC ACHS [facility] PRN Reason: Protocol Last Admin: 03/04/18 21:00 Dose: Not Given Latanoprost (Xalatan Opht) 1 drop OU HS [facility] Last Admin: 03/03/18 21:15 Dose: 1 drop Levothyroxine Sodium (Synthroid) 25 mcg PO 0630 [facility] Last Admin: 03/04/18 06:37 Dose: 25 mcg Loperamide HCl (Imodium) 4 mg PO TID PRN PRN Reason: Diarrhea Last Admin: 03/04/18 15:45 Dose: 4 mg Metoclopramide HCl (Reglan) 5 mg PO 0730,1130,1630 [facility] Last Admin: 03/04/18 17:04 Dose: 5 mg Metoprolol Tartrate (Lopressor) 25 mg PO BID [facility] Last Admin: 03/04/18 17:01 Dose: 25 mg Montelukast Sodium (Singulair) 10 mg PO HS [facility] Last Admin: 03/03/18 21:14 Dose: 10 mg Morphine Sulfate (Morphine Immediate Release Tab) 15 mg PO Q4 PRN PRN Reason: Pain scale 4-10 Last Admin: 03/04/18 19:56 Dose: 15 mg Multivitamins/Minerals (Therapeutic-M Tab) 1 tab PO DAILY [facility] Last Admin: 03/04/18 08:17 Dose: 1 tab Pantoprazole Sodium (Protonix Ec Tab) 20 mg PO 0600 [facility] Last Admin: 03/04/18 06:37 Dose: 20 mg Pregabalin (Lyrica) 50 mg PO HS [facility] Last Admin: 03/03/18 21:14 Dose: 50 mg Fluticasone/Salmeterol (Advair Diskus 250/50) 1 puff IH Q12 [facility] Silver Sulfadiazine (Silvadene 1% 20 Gm) 1 ea TOP 0600 [facility] Last Admin: 03/04/18 06:37 Dose: 1 applic Sodium Chloride ([place] Nasal [place]) 1 sprays HÉCTOR Q2 PRN PRN Reason: nasal congestion. Last Admin: 03/02/18 10:02 Dose: 1 spray Ticagrelor (Brilinta) 90 mg PO BID [facility] Last Admin: 03/04/18 17:02 Dose: 90 mg - Constitutional Appears: Non-toxic, No Acute Distress - Eye Exam Eye Exam: Normal appearance - Respiratory Exam Respiratory Exam: absent: Respiratory Distress Additional comments: rales present on L; - Cardiovascular Exam Cardiovascular Exam: RRR. absent: Gallop, Rubs - GI/Abdominal Exam GI & Abdominal Exam: Soft. absent: Distended, Tenderness - Extremities Exam Additional comments: moderately edematous b/l legs - Neurological Exam Neurological Exam: Alert, Awake - Psychiatric Exam Psychiatric exam: Normal Mood. absent: Agitated - Skin Skin Exam: Warm. absent: Cyanosis Assessment and Plan (1) ESRD on hemodialysis Assessment & Plan: Stable volume status; checking electrolytes tomorrow; will continue HD on MWF schedule, may have to decrease UF goal in light of diarrhea; Status: Acute (2) Hypertensive CKD, ESRD on dialysis Assessment & Plan: BP controlled on hydralazine and metoprolol, continue; Status: Chronic (3) Anemia in CKD (chronic kidney disease) Assessment & Plan: Hgb has been below goal, continue EPO on HD; Status: Acute (4) Chronic kidney disease-mineral and bone disorder Assessment & Plan: Awaiting PTH level; checking phos; continue sevelamer 2 tabs w/ meals (home med) ; Status: Acute (5) S/P BKA (below knee amputation) Assessment & Plan: On morphine SR for pain control; consider switching to another opiate as metabolites of morphine accumulate in renal failure; Status: Acute
[2018-03-04] MEDS: Latanoprost 0.005% Opht SOUTION OU SCH (21:14)
[2018-03-05] MEDS: Levothyroxine 25 MCG TAB PO SCH (05:42)
[2018-03-05] MEDS: Pantoprazole 20 mg EC Tab PO SCH (05:42)
[2018-03-05] MEDS: Silver Sulfadiazine 1% Cream (20 gm) TOP SCH (05:44)
[2018-03-05] MEDS: Hydrogen Peroxide 3% Soln (480ml) TP SCH (05:44)
[2018-03-05] MEDS: Insulin Regular 100 units/ml SC SCH ×5 (06:30→21:15)
--- NOTE | 2018-03-05 07:51 | CP.PCM.PN ---
Subjective - Date & Time of Evaluation Date of Evaluation: 03/03/18 Time of Evaluation: 15:00 - Subjective Subjective: Patient remains stable Noted hyperglycemia On insulin No recent blood test Has no SOB Has no chest pain still with loose stools Doing well with PT otherwise. Objective - Vital Signs/Intake and Output Vital Signs (last 24 hours): Temp Pulse Resp BP Pulse Ox 97.4 F L 68 20 121/59 L 99 03/04/18 20:00 03/04/18 20:00 03/04/18 20:00 03/04/18 20:00 03/04/18 20:00 - Medications Medications: Current Medications Albuterol/Ipratropium (Duoneb 3 Mg/0.5 Mg (3 Ml) Ud) 3 ml IH RQ6 PRN PRN Reason: Shortness of Breath Last Admin: 03/04/18 08:35 Dose: 3 ml Aspirin (Ecotrin) 81 mg PO DAILY [facility] Last Admin: 03/04/18 08:17 Dose: 81 mg Atorvastatin Calcium (Lipitor) 40 mg PO HS [facility] Last Admin: 03/04/18 21:14 Dose: 40 mg Bacitracin (Bacitracin) 1 ea TOP BID [facility] Last Admin: 03/04/18 17:03 Dose: 1 ea Dextrose (Dextrose 50% Inj) 0 ml IV STAT PRN; Protocol PRN Reason: Hypoglycemia Protocol Dextrose (Glutose 15) 0 gm PO ONCE PRN; Protocol PRN Reason: Hypoglycemia Protocol Diphenhydramine HCl (Benadryl) 25 mg PO HS PRN PRN Reason: Insomnia Last Admin: 03/04/18 22:29 Dose: 25 mg Epoetin Sudeep (Procrit) 10,000 unit IV MWF [facility] Last Admin: 03/02/18 22:11 Dose: 10,000 unit Ergocalciferol (Drisdol 50,000 Intl Units Cap) 1 cap PO WED [facility] Fenofibrate (Tricor) 145 mg PO DAILY [facility] Last Admin: 03/04/18 08:17 Dose: 145 mg Glucagon (Glucagen Diagnostic Kit) 0 mg IM STAT PRN; Protocol PRN Reason: Hypoglycemia Protocol Home Med (Patient's Own Medication) 1,600 unit PO WM@0800,1200,1700 [facility] Hydralazine HCl (Apresoline) 25 mg PO BID [facility] Last Admin: 08/19/18 17:02 Dose: 25 mg Hydrogen Peroxide (Hydrogen Peroxide 3%) 0 ml TP 0600 [facility] Last Admin: 03/05/18 05:44 Dose: 480 ml Insulin Human NPH (Humulin N) 25 units SC QPM [facility] Last Admin: 03/04/18 17:42 Dose: Not Given Insulin Human Regular (Humulin R) 0 units SC ACHS [facility] PRN Reason: Protocol Last Admin: 03/05/18 06:30 Dose: Not Given Latanoprost (Xalatan Opht) 1 drop OU HS [facility] Last Admin: 03/04/18 21:14 Dose: 1 drop Levothyroxine Sodium (Synthroid) 25 mcg PO 0630 [facility] Last Admin: 03/05/18 05:42 Dose: 25 mcg Loperamide HCl (Imodium) 4 mg PO TID PRN PRN Reason: Diarrhea Last Admin: 03/04/18 21:15 Dose: 4 mg Metoclopramide HCl (Reglan) 5 mg PO 0730,1130,1630 [facility] Last Admin: 03/05/18 06:40 Dose: 5 mg Metoprolol Tartrate (Lopressor) 25 mg PO BID [facility] Last Admin: 03/04/18 17:01 Dose: 25 mg Montelukast Sodium (Singulair) 10 mg PO HS [facility] Last Admin: 03/04/18 21:14 Dose: 10 mg Morphine Sulfate (Morphine Immediate Release Tab) 15 mg PO Q4 PRN PRN Reason: Pain scale 4-10 Last Admin: 03/04/18 19:56 Dose: 15 mg Multivitamins/Minerals (Therapeutic-M Tab) 1 tab PO DAILY [facility] Last Admin: 03/04/18 08:17 Dose: 1 tab Pantoprazole Sodium (Protonix Ec Tab) 20 mg PO 0600 [facility] Last Admin: 03/05/18 05:42 Dose: 20 mg Pregabalin (Lyrica) 50 mg PO HS [facility] Last Admin: 03/04/18 21:14 Dose: 50 mg Fluticasone/Salmeterol (Advair Diskus 250/50) 1 puff IH Q12 [facility] Last Admin: 03/04/18 21:13 Dose: 1 puff Silver Sulfadiazine (Silvadene 1% 20 Gm) 1 ea TOP 0600 [facility] Last Admin: 03/05/18 05:44 Dose: 1 applic Sodium Chloride ([place] Nasal [place]) 1 sprays HÉCTOR Q2 PRN PRN Reason: nasal congestion. Last Admin: 03/02/18 10:02 Dose: 1 spray Ticagrelor (Brilinta) 90 mg PO BID [facility] Last Admin: 03/04/18 17:02 Dose: 90 mg - Head Exam Head Exam: NORMAL INSPECTION - Eye Exam Eye Exam: Normal appearance Additional comments: pale conjunctivae - ENT Exam ENT Exam: Mucous Membranes Moist - Respiratory Exam Respiratory Exam: NORMAL BREATHING PATTERN - Cardiovascular Exam Cardiovascular Exam: REGULAR RHYTHM - GI/Abdominal Exam GI & Abdominal Exam: Soft, Normal Bowel Sounds - Neurological Exam Neurological Exam: Awake, Oriented x3 - Psychiatric Exam Psychiatric exam: Normal Mood Assessment and Plan (1) S/P BKA (below knee amputation) Status: Acute (2) ESRD on hemodialysis Status: Chronic (3) Chronic diarrhea Status: Acute (4) Malabsorption Status: Acute (5) CAD (coronary artery disease) Status: Chronic (6) Uncontrolled diabetes mellitus Status: Acute (7) Hypertension Status: Chronic - Assessment and Plan (Free Text) Plan: Cont meds check stool exams cont PT adjust meds.
--- NOTE | 2018-03-05 07:53 | CP.PCM.PN ---
Subjective - Date & Time of Evaluation Date of Evaluation: 03/04/18 Time of Evaluation: 16:00 - Subjective Subjective: patient feels better Has less diarrhea. No fever. Desires to have some meds discontinued. Meds were reviewed with the nurse. Objective - Vital Signs/Intake and Output Vital Signs (last 24 hours): Temp Pulse Resp BP Pulse Ox 97.4 F L 68 20 121/59 L 99 03/04/18 20:00 03/04/18 20:00 03/04/18 20:00 03/04/18 20:00 03/04/18 20:00 - Medications Medications: Current Medications Albuterol/Ipratropium (Duoneb 3 Mg/0.5 Mg (3 Ml) Ud) 3 ml IH RQ6 PRN PRN Reason: Shortness of Breath Last Admin: 03/04/18 08:35 Dose: 3 ml Aspirin (Ecotrin) 81 mg PO DAILY [facility] Last Admin: 03/04/18 08:17 Dose: 81 mg Atorvastatin Calcium (Lipitor) 40 mg PO HS [facility] Last Admin: 03/04/18 21:14 Dose: 40 mg Bacitracin (Bacitracin) 1 ea TOP BID [facility] Last Admin: 03/04/18 17:03 Dose: 1 ea Dextrose (Dextrose 50% Inj) 0 ml IV STAT PRN; Protocol PRN Reason: Hypoglycemia Protocol Dextrose (Glutose 15) 0 gm PO ONCE PRN; Protocol PRN Reason: Hypoglycemia Protocol Diphenhydramine HCl (Benadryl) 25 mg PO HS PRN PRN Reason: Insomnia Last Admin: 03/04/18 22:29 Dose: 25 mg Epoetin Sudeep (Procrit) 10,000 unit IV MWF [facility] Last Admin: 03/02/18 22:11 Dose: 10,000 unit Ergocalciferol (Drisdol 50,000 Intl Units Cap) 1 cap PO WED [facility] Fenofibrate (Tricor) 145 mg PO DAILY [facility] Last Admin: 03/04/18 08:17 Dose: 145 mg Glucagon (Glucagen Diagnostic Kit) 0 mg IM STAT PRN; Protocol PRN Reason: Hypoglycemia Protocol Home Med (Patient's Own Medication) 1,600 unit PO WM@0800,1200,1700 [facility] Hydralazine HCl (Apresoline) 25 mg PO BID [facility] Last Admin: 03/04/18 17:02 Dose: 25 mg Hydrogen Peroxide (Hydrogen Peroxide 3%) 0 ml TP 0600 [facility] Last Admin: 03/05/18 05:44 Dose: 480 ml Insulin Human NPH (Humulin N) 25 units SC QPM [facility] Last Admin: 03/04/18 17:42 Dose: Not Given Insulin Human Regular (Humulin R) 0 units SC ACHS [facility] PRN Reason: Protocol Last Admin: 03/05/18 06:30 Dose: Not Given Latanoprost (Xalatan Opht) 1 drop OU HS [facility] Last Admin: 03/04/18 21:14 Dose: 1 drop Levothyroxine Sodium (Synthroid) 25 mcg PO 0630 [facility] Last Admin: 03/05/18 05:42 Dose: 25 mcg Loperamide HCl (Imodium) 4 mg PO TID PRN PRN Reason: Diarrhea Last Admin: 03/04/18 21:15 Dose: 4 mg Metoclopramide HCl (Reglan) 5 mg PO 0730,1130,1630 [facility] Last Admin: 03/05/18 06:40 Dose: 5 mg Metoprolol Tartrate (Lopressor) 25 mg PO BID [facility] Last Admin: 03/04/18 17:01 Dose: 25 mg Montelukast Sodium (Singulair) 10 mg PO [facility] Last Admin: 03/04/18 21:14 Dose: 10 mg Morphine Sulfate (Morphine Immediate Release Tab) 15 mg PO Q4 PRN PRN Reason: Pain scale 4-10 Last Admin: 03/04/18 19:56 Dose: 15 mg Multivitamins/Minerals (Therapeutic-M Tab) 1 tab PO DAILY [facility] Last Admin: 03/04/18 08:17 Dose: 1 tab Pantoprazole Sodium (Protonix Ec Tab) 20 mg PO 0600 [facility] Last Admin: 03/05/18 05:42 Dose: 20 mg Pregabalin (Lyrica) 50 mg PO HS [facility] Last Admin: 03/04/18 21:14 Dose: 50 mg Fluticasone/Salmeterol (Advair Diskus 250/50) 1 puff IH Q12 [facility] Last Admin: 03/04/18 21:13 Dose: 1 puff Silver Sulfadiazine (Silvadene 1% 20 Gm) 1 ea TOP 0600 [facility] Last Admin: 03/05/18 05:44 Dose: 1 applic Sodium Chloride ([place] Nasal [place]) 1 sprays HÉCTOR Q2 PRN PRN Reason: nasal congestion. Last Admin: 03/02/18 10:02 Dose: 1 spray Ticagrelor (Brilinta) 90 mg PO BID [facility] Last Admin: 03/04/18 17:02 Dose: 90 mg - Head Exam Head Exam: NORMAL INSPECTION - Eye Exam Eye Exam: Normal appearance - ENT Exam ENT Exam: Mucous Membranes Moist - Respiratory Exam Respiratory Exam: Clear to Ausculation Bilateral - Cardiovascular Exam Cardiovascular Exam: REGULAR RHYTHM - GI/Abdominal Exam GI & Abdominal Exam: Normal Bowel Sounds - Neurological Exam Neurological Exam: Awake, Oriented x3 - Psychiatric Exam Psychiatric exam: Normal Mood Assessment and Plan (1) Chronic diarrhea Status: Acute (2) Anemia in CKD (chronic kidney disease) Status: Acute (3) Malabsorption Status: Acute (4) S/P BKA (below knee amputation) Status: Acute (5) CAD (coronary artery disease) Status: Chronic (6) ESRD on hemodialysis Status: Chronic (7) Uncontrolled diabetes mellitus Status: Acute (8) Hypertension Status: Chronic - Assessment and Plan (Free Text) Plan: Cont meds Cont tx Cont tx
[2018-03-05] MEDS: Fluticasone-Salmeterol 250-50mcg Diskus IH SCH ×2 (08:37→22:00)
[2018-03-05] MEDS: Bacitracin 500 Units/gm Oint Foilpak UD TOP SCH ×2 (08:38→21:55)
[2018-03-05] MEDS: Multivitamin With Minerals Tab PO SCH (08:40)
[2018-03-05] MEDS: SEVELAMER CARBONATE 800 MG PO SCH ×3 (08:44→21:58)
[2018-03-05] MEDS: Morphine 15 mg Immediate Release Tab PO PRN ×2 (08:49→16:40)
[2018-03-05] MEDS: EPOETIN ALFA 10,000 UNIT/ML ML IV SCH (16:39)
[2018-03-05 17:03] LABS: BASO # 0.1 K/uL (0.0-0.2); BASO % 0.6 % (0.0-2.0); EOS # 0.3 K/uL (0.0-0.7); EOS % 3.3 % (0.0-4.0); HEMOGLOBIN 9.7 g/dL (12.0-18.0); LYMPH # 1.2 K/uL (1.0-4.3); LYMPH % 13.4 % (20.0-40.0); MEAN CELL VOLUME 95.2 fl (80.0-94.0); MEAN CORPUSCULAR HEMOGLOBIN 31.3 pg (27.0-31.0); MEAN CORPUSCULAR HGB CONC 32.8 g/dL (33.0-37.0); MEAN PLATELET VOLUME 10.4 fl (7.2-11.7); MONO % 10.3 % (0.0-10.0); NEUT # 6.7 K/uL (1.8-7.0); NEUT % 72.4 % (50.0-75.0); RBC 3.1 Mil/uL (4.40-5.90); RED CELL DISTRIBUTION WIDTH 20.1 % (11.5-14.5); WHITE BLOOD COUNT 9.3 K/uL (4.8-10.8)
[2018-03-05 17:35] LABS: ALB/GLOB RATIO 0.7 (1.0-2.1); ALT/SGPT 29 U/L (21-72); AST/SGOT 64 U/L (17-59); BLOOD UREA NITROGEN 34 mg/dl (9-20); CALCIUM 8.6 mg/dL (8.4-10.2); GFR NON-AFRICAN AMERICAN 7; HDL CHOLESTEROL 15 MG/DL (30-70); LDL CHOLESTEROL < 30 mg/dL (0-129)
[2018-03-05 17:44] LABS: IRON 37 ug/dL (49-181)
[2018-03-05 17:53] LABS: % IRON SATURATION 16 % (20-55); TOTAL IRON BINDING CAPACITY 229 ug/dL (250-450)
[2018-03-05] MEDS: Insulin NPH Human 100 Units/ml Inj SC SCH (21:47)
[2018-03-05] MEDS: Latanoprost 0.005% Opht SOUTION OU SCH (22:02)
--- NOTE | 2018-03-05 22:38 | CP.PCM.PN ---
Subjective - Date & Time of Evaluation Date of Evaluation: 03/05/18 Time of Evaluation: 13:45 - Subjective Subjective: Patient denies sob today; still with diarrhea 3 times today; otherwise, tolerating diet; Objective - Vital Signs/Intake and Output Vital Signs (last 24 hours): Temp Pulse Resp BP Pulse Ox 96.0 F L 73 20 134/58 L 99 03/05/18 20:00 03/05/18 21:56 03/05/18 20:00 03/05/18 21:56 03/05/18 20:00 - Medications Medications: Current Medications Albuterol/Ipratropium (Duoneb 3 Mg/0.5 Mg (3 Ml) Ud) 3 ml IH RQ6 PRN PRN Reason: Shortness of Breath Last Admin: 03/04/18 08:35 Dose: 3 ml Aspirin (Ecotrin) 81 mg PO DAILY [facility] Last Admin: 03/05/18 08:54 Dose: Not Given Atorvastatin Calcium (Lipitor) 40 mg PO HS [facility] Last Admin: 03/05/18 22:01 Dose: 40 mg Bacitracin (Bacitracin) 1 ea TOP BID [facility] Last Admin: 03/05/18 21:55 Dose: 1 ea Dextrose (Dextrose 50% Inj) 0 ml IV STAT PRN; Protocol PRN Reason: Hypoglycemia Protocol Dextrose (Glutose 15) 0 gm PO ONCE PRN; Protocol PRN Reason: Hypoglycemia Protocol Diphenhydramine HCl (Benadryl) 25 mg PO HS PRN PRN Reason: Insomnia Last Admin: 03/05/18 22:03 Dose: 25 mg Epoetin Sudeep (Procrit) 10,000 unit IV MWF [facility] Last Admin: 03/05/18 16:39 Dose: 10,000 unit Ergocalciferol (Drisdol 50,000 Intl Units Cap) 1 cap PO WED [facility] Fenofibrate (Tricor) 145 mg PO DAILY [facility] Last Admin: 03/05/18 08:45 Dose: 145 mg Glucagon (Glucagen Diagnostic Kit) 0 mg IM STAT PRN; Protocol PRN Reason: Hypoglycemia Protocol Home Med (Patient's Own Medication) 1,600 unit PO WM@0800,1200,1700 [facility] Last Admin: 03/05/18 21:58 Dose: 1,600 unit Hydralazine HCl (Apresoline) 25 mg PO BID [facility] Last Admin: 03/05/18 21:54 Dose: 25 mg Hydrogen Peroxide (Hydrogen Peroxide 3%) 0 ml TP 0600 [facility] Last Admin: 03/05/18 05:44 Dose: 480 ml Insulin Human NPH (Humulin N) 25 units SC QPM [facility] Last Admin: 03/05/18 21:47 Dose: Not Given Insulin Human Regular (Humulin R) 0 units SC ACHS [facility] PRN Reason: Protocol Last Admin: 03/05/18 21:10 Dose: Not Given Latanoprost (Xalatan Opht) 1 drop OU HS [facility] Last Admin: 03/05/18 22:02 Dose: 1 drop Levothyroxine Sodium (Synthroid) 25 mcg PO 0630 [facility] Last Admin: 03/05/18 05:42 Dose: 25 mcg Loperamide HCl (Imodium) 4 mg PO TID PRN PRN Reason: Diarrhea Last Admin: 03/05/18 22:14 Dose: 4 mg Metoclopramide HCl (Reglan) 5 mg PO 0730,1130,1630 [facility] Last Admin: 03/05/18 21:50 Dose: 5 mg Metoprolol Tartrate (Lopressor) 25 mg PO BID [facility] Last Admin: 03/05/18 21:56 Dose: 25 mg Montelukast Sodium (Singulair) 10 mg PO [facility] Last Admin: 03/05/18 22:11 Dose: 10 mg Morphine Sulfate (Morphine Immediate Release Tab) 15 mg PO Q4 PRN PRN Reason: Pain scale 4-10 Last Admin: 03/05/18 16:40 Dose: 15 mg Multivitamins/Minerals (Therapeutic-M Tab) 1 tab PO DAILY [facility] Last Admin: 03/05/18 08:40 Dose: 1 tab Mupirocin (Bactroban Ointment) 1 applic TOP 0600,1800 [facility] Pantoprazole Sodium (Protonix Ec Tab) 20 mg PO 0600 [facility] Last Admin: 03/05/18 05:42 Dose: 20 mg Pregabalin (Lyrica) 50 mg PO HS [facility] Last Admin: 03/05/18 22:05 Dose: 50 mg Fluticasone/Salmeterol (Advair Diskus 250/50) 1 puff IH Q12 [facility] Last Admin: 03/05/18 22:00 Dose: 1 puff Silver Sulfadiazine (Silvadene 1% 20 Gm) 1 ea TOP 0600 [facility] Sodium Chloride ([place] Nasal [place]) 1 sprays HÉCTOR Q2 PRN PRN Reason: nasal congestion. Last Admin: 03/02/18 10:02 Dose: 1 spray Ticagrelor (Brilinta) 90 mg PO BID [facility] Last Admin: 03/05/18 21:56 Dose: 90 mg - Labs Labs: 03/05/18 16:55 03/05/18 16:55 - Constitutional Appears: Non-toxic, No Acute Distress - Eye Exam Eye Exam: Normal appearance. absent: Scleral icterus - ENT Exam ENT Exam: Mucous Membranes Moist - Respiratory Exam Respiratory Exam: Rales. absent: Respiratory Distress - Cardiovascular Exam Cardiovascular Exam: RRR. absent: Gallop, Rubs - GI/Abdominal Exam GI & Abdominal Exam: Soft. absent: Distended, Tenderness - Extremities Exam Additional comments: markedly edematous leg b/l - Neurological Exam Neurological Exam: Alert, Awake - Psychiatric Exam Psychiatric exam: Normal Mood. absent: Agitated - Skin Skin Exam: Warm. absent: Cyanosis Assessment and Plan (1) ESRD on hemodialysis Assessment & Plan: Stable electrolyte status; will aim for decreased UF goal on HD in light of ongoing diarrhea; Status: Acute (2) Hypertensive CKD, ESRD on dialysis Assessment & Plan: BP controlled, continue current meds; Status: Chronic (3) Anemia in CKD (chronic kidney disease) Assessment & Plan: Hgb stable, continue EPO on HD; Status: Acute (4) Chronic kidney disease-mineral and bone disorder Assessment & Plan: PTH oversuppressed for ESRD patient (goal is between 200-600); should hold all Ca and vitamin D supplementation; keep on non-Ca phos binder sevelamer; Status: Chronic (5) S/P BKA (below knee amputation) Assessment & Plan: Currently on morphine SR for pain; if mental status changes, should d/c morphine as metabolites can accumulate in renal failure; Status: Acute
[2018-03-05] MEDS: Mupirocin 2% Oint 1GM UD TOP SCH ×2 (22:46→22:48)
[2018-03-06] MEDS: Hydrogen Peroxide 3% Soln (480ml) TP SCH (06:25)
[2018-03-06] MEDS: Pantoprazole 20 mg EC Tab PO SCH (06:26)
[2018-03-06] MEDS: Levothyroxine 25 MCG TAB PO SCH (06:27)
[2018-03-06] MEDS: Silver Sulfadiazine 1% Cream (20 gm) TOP SCH (06:27)
[2018-03-06] MEDS: Morphine 15 mg Immediate Release Tab PO PRN (06:56)
[2018-03-06] MEDS: Insulin Regular 100 units/ml SC SCH ×4 (06:58→22:31)
[2018-03-06] MEDS: Fluticasone-Salmeterol 250-50mcg Diskus IH SCH ×2 (08:15→22:35)
[2018-03-06] MEDS: Bacitracin 500 Units/gm Oint Foilpak UD TOP SCH ×2 (08:17→17:34)
[2018-03-06] MEDS: SEVELAMER CARBONATE 800 MG PO SCH ×3 (08:18→17:47)
[2018-03-06] MEDS: Multivitamin With Minerals Tab PO SCH (08:18)
--- NOTE | 2018-03-06 13:06 | PSY.TMCNF ---
Nursing - Vital Signs Vital Signs (Last 8 hours): Vital Signs 03/06/18 03/06/18 03/06/18 08:17 08:21 09:00 Temperature 97.8 F Pulse Rate 70 70 72 Respiratory 22 Rate Blood Pressure 138/54 L 138/54 L 138/54 L O2 Sat by Pulse Oximetry 03/06/18 09:12 Temperature 97.8 F Pulse Rate 72 Respiratory 22 Rate Blood Pressure 138/54 L O2 Sat by Pulse 100 Oximetry Pain: 0 - Precautions: Precautions: Fall Prevention, Cardiac/Pulmonary, Pressure Ulcer - Medications/Other Issues Comment: pressure ulcer on the sacral area dialysis MWF frequent soft bm - Consults Comment: DR Harmon,Dr Arshad - Skin Incision Site: Right BKA Dressing Status: Clean, Dry, Intact Incision: [place] Intact, No Drainage Noted Incision Line Treatment: Cleanse with peroxide and silvadene applied - Wound Sacrum Wound Stage: STAGE II Wound Shape: Oval Wound Edges: Attached Wound Length: 1 Wound Width: 0.5 Wound Bed Greatest Portion: Pale [place] Periwound: Intact Wound Drainage Odor: None/Absent Wound Dressing Status: Changed Dressing Changed: Yes Wound Primary Dressing Type: Gauze Pads Comment: dressing changed by wound care nurse annettedenaby with gauze and tegaderm - Toileting Toileting: Dependent - Bladder Management Frequency of Accidents: dialysis MWF - Bowel Management Bowel Pattern: Incontinent Comment: with frequent small soft stool Bowel Management: Dependent - Transfers Transfers: Moderate Assistance - ADL's ADL's: Moderate Assistance - Pain Management Comments: morphine immediate release q4h prn - Patient/Family Teaching Comments: Pain medication s/s of infection wound care - Goals/Time Frame Comments: as per multidiciplinary plan of care - Provider Provider: Remington li Physical Therapy - Bed Mobility Bed Mobility: Minimal Assistance Comment: Supine to sit on EOB with head of bed flat without use of bedrail with minimal assistance of 1 for trunk. - Transfers Wheelchair to Mat: Minimal Assistance Comment: Bed to w/c with minimal assistance of 1 with use of cash board with VC 's for technique and set-up. Unable to perform sit to stand despite maximal assistance of 1, patient unable to clear buttocks from mat even with use of bilateral push-up blocks. - Ambulation Comment: Unable to perform at this time. Able to propel self in w/c x 80 feet with superviison, slow, requiring rest breaks at times. - Stair Negotiation Comment: Unable to perform at this time. - Standing Balance Static Stand: Unable to perform Dynamic Stand: Unable to assess/perform Comment: Patient has been non-ambulatory and has not stood since July 2017. Patient presents with trunk, hip, core and UE weakness impacting ability to perform sit to stand, bridging, unable to fully clear buttocks thus currently necessitating use of cash board for transfers. - Pain Pain (assessed during therapy session): 8 Management Techniques: Medication, Exercise - Insight/Carryover Insight/Carryover: Good - Patient/Family Education Comment: Eduication regarding the importance of maintaining right LE hip and knee extension to facilitate/prevent muscle imbalance/contractures for preparation for prosthesis, spending time in prone postion, HEP. - Assessment/Plan Assessment: Proximal weakness at core, hip, trunk and UE's, non-ambulatory and non-standing since July 2017, multiple medical co-morbidities, fatigues easily. - Goals Timeframe: 2 weeks Goals: Increase bed mobility to CG/close supervision of 1 with head of bed flat without use of bedrail. Increase transfers bed to w/c with supervision. Increase standing with appropriate AD with maximal assistance of 1. Independent with HEP, teach shiela wrapping. - Provider Therapist: columba License Number: [id number] Occupational Therapy - Arousal/Attention/Orientation Patient Orientation: Person, Place, Time, Appropriate to Age, Appropriate to Situation - ADL/IADL Self Feeding: Independent Grooming: Supervision Bathing-Upper Extremity: Contact Guard Bathing-Lower Extremity: Minimal Assistance Dressing-Upper Extremity: Supervision Dressing-Lower Extremity: Minimal Assistance - Sitting Balance Static Sitting: Supervision Dynamic Sitting: Contact Guard Assist - Transfers Wheelchair to Bed Transfers: Moderate Assistance Toilet Transfers: Moderate Assistance - Wheelchair Management Level of Assistance: Supervision - Pain Pain (assessed during therapy session): 8 Alleviating Techniques: Medication, Exercise - Insight/Carryover Insight/Carryover: Good - Patient/Family Education Comment: Eduication regarding the importance of maintaining right LE hip and knee extension to facilitate/prevent muscle imbalance/contractures for preparation for prosthesis, spending time in prone postion, HEP. - Assessment/Plan Assessment: Proximal weakness at core, hip, trunk and UE's, non-ambulatory and non-standing since July 2017, multiple medical co-morbidities, fatigues easily. - Goals Timeframe: 2 weeks Goals: Increase bed mobility to CG/close supervision of 1 with head of bed flat without use of bedrail. Increase transfers bed to w/c with supervision. Increase standing with appropriate AD with maximal assistance of 1. Independent with HEP, teach shiela wrapping. - Provider Therapist: Milli SPEAR/Carlito License Number: [id number] Speech Therapy - Plan Assessment: Proximal weakness at core, hip, trunk and UE's, non-ambulatory and non-standing since July 2017, multiple medical co-morbidities, fatigues easily. Recreational Therapy - Participation Participation: Participates in Individual and/or Group Sessions - Attendance Attendance: 3-5 times per week - Activities Leisure Activities: Crafts - Socialization Level of Socialization: Initiates/interacts freely with care givers and peer - Diversional Time Diversional Time: arts and crafts, socializing - Assessment Assessment/Plan: Proximal weakness at core, hip, trunk and UE's, non-ambulatory and non-standing since July 2017, multiple medical co-morbidities, fatigues easily. - Provider Therapist: Keturah Santillan, [employer] #[id number] Nutrition - Current Diet Current Diet/ Supplement/ Feedings: Moderate consistent CHO heart healthy renal dialysis prostat sugar free 30. ml 2 per day no pork - Appetite Percent Meal Consumed: 50-74% - Comments Comments: Pain medication s/s of infection wound care - Assessment/Goals/Time Frame Assessment/Goals/Time Frame: pressure ulcer on the sacral area dialysis MWF frequent soft bm - Provider Provider: Nydia Fine RD Case Management - Discharge Plan Discharge Plan: Home alone (Has [facility]) Rehabilitation Plan - Treatment Plan Treatment Plan: Physical Therapy, Occupational Therapy, Dietary, Patient/Family Education - Discharge Plan Estimated Date of Discharge: 03/17/18 Discharge to: Home
--- NOTE | 2018-03-06 13:21 | CP.PCM.PN ---
Subjective - Date & Time of Evaluation Date of Evaluation: 03/06/18 Time of Evaluation: 13:20 - Subjective Subjective: Right BKA limited function no pain no sob no chest pain no fever discussed d/c plans and will work with SW to get safest d/c plan in place Objective - Vital Signs/Intake and Output Vital Signs (last 24 hours): Temp Pulse Resp BP Pulse Ox 97.8 F 72 22 138/54 L 100 03/06/18 09:12 03/06/18 09:12 03/06/18 09:12 03/06/18 09:12 03/06/18 09:12 - Medications Medications: Current Medications Albuterol/Ipratropium (Duoneb 3 Mg/0.5 Mg (3 Ml) Ud) 3 ml IH RQ6 PRN PRN Reason: Shortness of Breath Last Admin: 03/04/18 08:35 Dose: 3 ml Aspirin (Ecotrin) 81 mg PO DAILY [facility] Last Admin: 03/06/18 08:19 Dose: 81 mg Atorvastatin Calcium (Lipitor) 40 mg PO HS [facility] Last Admin: 03/05/18 22:01 Dose: 40 mg Bacitracin (Bacitracin) 1 ea TOP BID [facility] Last Admin: 03/06/18 08:17 Dose: 1 ea Dextrose (Dextrose 50% Inj) 0 ml IV STAT PRN; Protocol PRN Reason: Hypoglycemia Protocol Dextrose (Glutose 15) 0 gm PO ONCE PRN; Protocol PRN Reason: Hypoglycemia Protocol Diphenhydramine HCl (Benadryl) 25 mg PO HS PRN PRN Reason: Insomnia Last Admin: 03/05/18 22:03 Dose: 25 mg Epoetin Sudeep (Procrit) 10,000 unit IV MWF [facility] Last Admin: 03/05/18 16:39 Dose: 10,000 unit Ergocalciferol (Drisdol 50,000 Intl Units Cap) 1 cap PO WED [facility] Fenofibrate (Tricor) 145 mg PO DAILY [facility] Last Admin: 03/06/18 08:20 Dose: 145 mg Glucagon (Glucagen Diagnostic Kit) 0 mg IM STAT PRN; Protocol PRN Reason: Hypoglycemia Protocol Home Med (Patient's Own Medication) 1,600 unit PO WM@0800,1200,1700 [facility] Last Admin: 03/06/18 12:23 Dose: 1,600 unit Hydralazine HCl (Apresoline) 25 mg PO BID [facility] Last Admin: 03/06/18 08:21 Dose: 25 mg Hydrogen Peroxide (Hydrogen Peroxide 3%) 0 ml TP 0600 [facility] Last Admin: 03/06/18 06:25 Dose: 480 ml Insulin Human NPH (Humulin N) 25 units SC QPM [facility] Last Admin: 03/05/18 21:47 Dose: Not Given Insulin Human Regular (Humulin R) 0 units SC ACHS [facility] PRN Reason: Protocol Last Admin: 03/06/18 12:24 Dose: 8 units Latanoprost (Xalatan Opht) 1 drop OU HS [facility] Last Admin: 03/05/18 22:02 Dose: 1 drop Levothyroxine Sodium (Synthroid) 25 mcg PO 0630 [facility] Last Admin: 03/06/18 06:27 Dose: 25 mcg Loperamide HCl (Imodium) 4 mg PO TID PRN PRN Reason: Diarrhea Last Admin: 03/06/18 08:22 Dose: 4 mg Metoclopramide HCl (Reglan) 5 mg PO 0730,1130,1630 [facility] Last Admin: 03/06/18 12:23 Dose: 5 mg Metoprolol Tartrate (Lopressor) 25 mg PO BID [facility] Last Admin: 03/06/18 08:17 Dose: 25 mg Montelukast Sodium (Singulair) 10 mg PO [facility] Last Admin: 03/05/18 22:11 Dose: 10 mg Morphine Sulfate (Morphine Immediate Release Tab) 15 mg PO Q4 PRN PRN Reason: Pain scale 4-10 Last Admin: 03/06/18 06:56 Dose: 15 mg Multivitamins/Minerals (Therapeutic-M Tab) 1 tab PO DAILY [facility] Last Admin: 03/06/18 08:18 Dose: 1 tab Mupirocin (Bactroban Ointment) 1 applic TOP 0600,1800 [facility] Last Admin: 03/06/18 06:25 Dose: 1 applic Pantoprazole Sodium (Protonix Ec Tab) 20 mg PO 0600 [facility] Last Admin: 03/06/18 06:26 Dose: 20 mg Pregabalin (Lyrica) 50 mg PO HS [facility] Last Admin: 03/05/18 22:05 Dose: 50 mg Fluticasone/Salmeterol (Advair Diskus 250/50) 1 puff IH Q12 [facility] Last Admin: 03/06/18 08:15 Dose: 1 puff Silver Sulfadiazine (Silvadene 1% 20 Gm) 1 ea TOP 0600 [facility] Last Admin: 03/06/18 06:27 Dose: 1 applic Sodium Chloride ([place] Nasal [place]) 1 sprays HÉCTOR Q2 PRN PRN Reason: nasal congestion. Last Admin: 03/02/18 10:02 Dose: 1 spray Ticagrelor (Brilinta) 90 mg PO BID [facility] Last Admin: 03/06/18 08:17 Dose: 90 mg Trazodone HCl (Desyrel) 50 mg PO [facility] - Labs Labs: 03/05/18 16:55 03/05/18 16:55
--- NOTE | 2018-03-06 13:30 | CP.PCM.PN ---
<Veto Ramirez - Last Filed: 03/06/18 13:26> Subjective - Date & Time of Evaluation Date of Evaluation: 03/06/18 Time of Evaluation: 10:00 - Subjective Subjective: 52 y/o M complains of difficulties sleeping and requesting Ambien. Otherwise, pt reports feeling well, recovering well from recent BKA, doing and tolerating physical therapy. Pt afebrile, tolerating PO with NO acute events overnight. Objective - Vital Signs/Intake and Output Vital Signs (last 24 hours): Temp Pulse Resp BP Pulse Ox 97.8 F 72 22 138/54 L 100 03/06/18 09:12 03/06/18 09:12 03/06/18 09:12 03/06/18 09:12 03/06/18 09:12 - Medications Medications: Current Medications Albuterol/Ipratropium (Duoneb 3 Mg/0.5 Mg (3 Ml) Ud) 3 ml IH RQ6 PRN PRN Reason: Shortness of Breath Last Admin: 03/04/18 08:35 Dose: 3 ml Aspirin (Ecotrin) 81 mg PO DAILY [facility] Last Admin: 03/06/18 08:19 Dose: 81 mg Atorvastatin Calcium (Lipitor) 40 mg PO HS [facility] Last Admin: 03/05/18 22:01 Dose: 40 mg Bacitracin (Bacitracin) 1 ea TOP BID [facility] Last Admin: 03/06/18 08:17 Dose: 1 ea Dextrose (Dextrose 50% Inj) 0 ml IV STAT PRN; Protocol PRN Reason: Hypoglycemia Protocol Dextrose (Glutose 15) 0 gm PO ONCE PRN; Protocol PRN Reason: Hypoglycemia Protocol Diphenhydramine HCl (Benadryl) 25 mg PO HS PRN PRN Reason: Insomnia Last Admin: 03/05/18 22:03 Dose: 25 mg Epoetin Sudeep (Procrit) 10,000 unit IV MWF [facility] Last Admin: 03/05/18 16:39 Dose: 10,000 unit Ergocalciferol (Drisdol 50,000 Intl Units Cap) 1 cap PO WED [facility] Fenofibrate (Tricor) 145 mg PO DAILY [facility] Last Admin: 03/06/18 08:20 Dose: 145 mg Glucagon (Glucagen Diagnostic Kit) 0 mg IM STAT PRN; Protocol PRN Reason: Hypoglycemia Protocol Home Med (Patient's Own Medication) 1,600 unit PO WM@0800,1200,1700 [facility] Last Admin: 03/06/18 12:23 Dose: 1,600 unit Hydralazine HCl (Apresoline) 25 mg PO BID [facility] Last Admin: 03/06/18 08:21 Dose: 25 mg Hydrogen Peroxide (Hydrogen Peroxide 3%) 0 ml TP 0600 [facility] Last Admin: 03/06/18 06:25 Dose: 480 ml Insulin Human NPH (Humulin N) 25 units SC QPM [facility] Last Admin: 03/05/18 21:47 Dose: Not Given Insulin Human Regular (Humulin R) 0 units SC ACHS [facility] PRN Reason: Protocol Last Admin: 03/06/18 12:24 Dose: 8 units Latanoprost (Xalatan Opht) 1 drop OU HS [facility] Last Admin: 03/05/18 22:02 Dose: 1 drop Levothyroxine Sodium (Synthroid) 25 mcg PO 0630 [facility] Last Admin: 03/06/18 06:27 Dose: 25 mcg Loperamide HCl (Imodium) 4 mg PO TID PRN PRN Reason: Diarrhea Last Admin: 03/06/18 08:22 Dose: 4 mg Metoclopramide HCl (Reglan) 5 mg PO 0730,1130,1630 [facility] Last Admin: 03/06/18 12:23 Dose: 5 mg Metoprolol Tartrate (Lopressor) 25 mg PO BID [facility] Last Admin: 03/06/18 08:17 Dose: 25 mg Montelukast Sodium (Singulair) 10 mg PO [facility] Last Admin: 03/05/18 22:11 Dose: 10 mg Morphine Sulfate (Morphine Immediate Release Tab) 15 mg PO Q4 PRN PRN Reason: Pain scale 4-10 Last Admin: 03/06/18 06:56 Dose: 15 mg Multivitamins/Minerals (Therapeutic-M Tab) 1 tab PO DAILY [facility] Last Admin: 03/06/18 08:18 Dose: 1 tab Mupirocin (Bactroban Ointment) 1 applic TOP 0600,1800 [facility] Last Admin: 03/06/18 06:25 Dose: 1 applic Pantoprazole Sodium (Protonix Ec Tab) 20 mg PO 0600 [facility] Last Admin: 03/06/18 06:26 Dose: 20 mg Pregabalin (Lyrica) 50 mg PO [facility] Last Admin: 03/05/18 22:05 Dose: 50 mg Fluticasone/Salmeterol (Advair Diskus 250/50) 1 puff IH Q12 [facility] Last Admin: 03/06/18 08:15 Dose: 1 puff Silver Sulfadiazine (Silvadene 1% 20 Gm) 1 ea TOP 0600 [facility] Last Admin: 03/06/18 06:27 Dose: 1 applic Sodium Chloride ([place] Nasal [place]) 1 sprays HÉCTOR Q2 PRN PRN Reason: nasal congestion. Last Admin: 03/02/18 10:02 Dose: 1 spray Ticagrelor (Brilinta) 90 mg PO BID [facility] Last Admin: 03/06/18 08:17 Dose: 90 mg Trazodone HCl (Desyrel) 50 mg PO HS [facility] - Labs Labs: 03/05/18 16:55 03/05/18 16:55 - Constitutional Appears: Well, No Acute Distress - Head Exam Head Exam: NORMAL INSPECTION - Eye Exam Eye Exam: EOMI, Normal appearance - ENT Exam ENT Exam: Mucous Membranes Moist - Neck Exam Neck Exam: Full ROM. absent: Meningismus - Respiratory Exam Respiratory Exam: Clear to Ausculation Bilateral, NORMAL BREATHING PATTERN - Cardiovascular Exam Cardiovascular Exam: REGULAR RHYTHM, +S1, +S2 - GI/Abdominal Exam GI & Abdominal Exam: Soft. absent: Guarding, Tenderness, Rebound - Extremities Exam Additional comments: Right stump: covered on shiela bandage, some tenderness, SILT. LLE: normal ROM, SILT, normal strength. Assessment and Plan - Assessment and Plan (Free Text) Assessment: 52 y/o M with a PMHx of HTN, pacemaker placement, COPD, CVA and DM was admitted to acute rehab for recovery s/p Right Below Knee Amputation. --Stable, recovering well. --Pt educated on the side effects of Ambien, pt reported understanding and agreed to try Trazodone. --Continue management as ordered. Case discussed with Dr Bejarano. <Gabino Bejarano - Last Filed: 03/12/18 05:47> Objective - Vital Signs/Intake and Output Vital Signs (last 24 hours): Temp Pulse Resp BP Pulse Ox 97.7 F 82 20 113/53 L 97 03/11/18 20:54 03/11/18 20:54 03/11/18 20:54 03/11/18 20:54 03/11/18 20:54 Intake and Output: 03/11/18 03/12/18 18:59 06:59 Intake Total 520 Balance 520 - Medications Medications: Current Medications Albuterol/Ipratropium (Duoneb 3 Mg/0.5 Mg (3 Ml) Ud) 3 ml IH RQ6 PRN PRN Reason: Shortness of Breath Last Admin: 03/04/18 08:35 Dose: 3 ml Alprazolam (Xanax) 0.25 mg PO HS PRN PRN Reason: Anxiety Stop: 03/17/18 14:38 Aspirin (Ecotrin) 81 mg PO DAILY [facility] Last Admin: 03/11/18 08:57 Dose: 81 mg Atorvastatin Calcium (Lipitor) 40 mg PO HS [facility] Last Admin: 03/11/18 21:02 Dose: 40 mg Bacitracin (Bacitracin) 1 ea TOP BID [facility] Last Admin: 03/11/18 17:05 Dose: 1 ea Capsaicin (Trixaicin Cream) 1 applic TOP Q6 PRN PRN Reason: bilateral wrist pain Last Admin: 03/10/18 17:15 Dose: 1 applic Dextrose (Dextrose 50% Inj) 0 ml IV STAT PRN; Protocol PRN Reason: Hypoglycemia Protocol Dextrose (Glutose 15) 0 gm PO ONCE PRN; Protocol PRN Reason: Hypoglycemia Protocol Dimethicone (Proshield Plus Skin Protectant) 1 applic TOP Q8 [facility] Last Admin: 03/12/18 05:21 Dose: 1 applic Diphenhydramine HCl (Benadryl) 25 mg PO HS PRN PRN Reason: Insomnia Last Admin: 03/09/18 21:11 Dose: 25 mg Diphenoxylate HCl/Atropine (Lomotil 0.025-2.5 Mg Tablet) 2 tab PO Q12 [facility] Last Admin: 03/11/18 21:13 Dose: 2 tab Epoetin Sudeep (Procrit) 10,000 unit IV MWF [facility] Last Admin: 03/09/18 15:24 Dose: 10,000 unit Ergocalciferol (Drisdol 50,000 Intl Units Cap) 1 cap PO WED [facility] Fenofibrate (Tricor) 145 mg PO DAILY [facility] Last Admin: 03/11/18 08:47 Dose: 145 mg Glucagon (Glucagen Diagnostic Kit) 0 mg IM STAT PRN; Protocol PRN Reason: Hypoglycemia Protocol Hydralazine HCl (Apresoline) 25 mg PO BID [facility] Last Admin: 03/11/18 17:05 Dose: 25 mg Hydrogen Peroxide (Hydrogen Peroxide 3%) 0 ml TP 0600 [facility] Last Admin: 03/12/18 05:21 Dose: 480 ml Insulin Human NPH (Humulin N) 25 units SC QPM [facility] Last Admin: 03/11/18 17:35 Dose: Not Given Insulin Human Regular (Humulin R) 0 units SC ACHS [facility] PRN Reason: Protocol Last Admin: 03/11/18 21:00 Dose: Not Given Latanoprost (Xalatan Opht) 1 drop OU HS [facility] Last Admin: 03/11/18 21:03 Dose: 1 drop Levothyroxine Sodium (Synthroid) 25 mcg PO 0630 [facility] Last Admin: 03/11/18 06:26 Dose: 25 mcg Metoclopramide HCl (Reglan) 5 mg PO 0730,1130,1630 [facility] Last Admin: 03/11/18 17:11 Dose: 5 mg Metoprolol Tartrate (Lopressor) 25 mg PO BID [facility] Last Admin: 03/11/18 17:10 Dose: 25 mg Montelukast Sodium (Singulair) 10 mg PO HS [facility] Last Admin: 03/11/18 21:03 Dose: 10 mg Morphine Sulfate (Morphine Immediate Release Tab) 15 mg PO Q4 PRN PRN Reason: Pain scale 4-10 Last Admin: 03/11/18 21:13 Dose: 15 mg Multivitamins/Minerals (Therapeutic-M Tab) 1 tab PO DAILY [facility] Last Admin: 03/11/18 08:47 Dose: 1 tab Mupirocin (Bactroban Ointment) 1 applic TOP 0600,1800 [facility] Last Admin: 03/12/18 05:20 Dose: 1 applic Pregabalin (Lyrica) 50 mg PO HS [facility] Last Admin: 03/11/18 21:13 Dose: 50 mg Fluticasone/Salmeterol (Advair Diskus 250/50) 1 puff IH Q12 [facility] Last Admin: 03/11/18 21:00 Dose: 1 puff Sevelamer Carbonate (Renvela) 1,600 mg PO WM@0800,1200,1700 [facility] Last Admin: 03/11/18 17:11 Dose: 1,600 mg Silver Sulfadiazine (Silvadene 1% 20 Gm) 1 ea TOP 0600 [facility] Last Admin: 03/12/18 05:21 Dose: 1 applic Sodium Chloride ([place] Nasal [place]) 1 sprays HÉCTOR Q2 PRN PRN Reason: nasal congestion. Last Admin: 03/02/18 10:02 Dose: 1 spray Ticagrelor (Brilinta) 90 mg PO BID [facility] Last Admin: 03/11/18 17:09 Dose: 90 mg Trazodone HCl (Desyrel) 50 mg PO HS [facility] Last Admin: 03/11/18 21:02 Dose: 50 mg - Labs Labs: 03/05/18 16:55 03/05/18 16:55 Assessment and Plan (1) Chronic diarrhea Status: Acute (2) Anemia in CKD (chronic kidney disease) Status: Acute (3) Malabsorption Status: Acute (4) S/P BKA (below knee amputation) Status: Acute (5) CAD (coronary artery disease) Status: Chronic (6) ESRD on hemodialysis Status: Chronic (7) Uncontrolled diabetes mellitus Status: Acute (8) Hypertension Status: Chronic - Assessment and Plan (Free Text) Plan: I was present during evaluation and discussed with Dr Ramirez re plans of care and tx. Gabino Bejarano M.D.
[2018-03-06] MEDS: Insulin NPH Human 100 Units/ml Inj SC SCH ×2 (17:42→19:13)
--- NOTE | 2018-03-06 20:08 | CP.PCM.PN ---
Subjective - Date & Time of Evaluation Date of Evaluation: 03/06/18 Time of Evaluation: 19:45 - Subjective Subjective: Very drowsy this evening; no complaints when awoken; Objective - Vital Signs/Intake and Output Vital Signs (last 24 hours): Temp Pulse Resp BP Pulse Ox 97.8 F 69 22 135/56 L 100 03/06/18 09:12 03/06/18 17:32 03/06/18 09:12 03/06/18 17:32 03/06/18 09:12 - Medications Medications: Current Medications Albuterol/Ipratropium (Duoneb 3 Mg/0.5 Mg (3 Ml) Ud) 3 ml IH RQ6 PRN PRN Reason: Shortness of Breath Last Admin: 03/04/18 08:35 Dose: 3 ml Aspirin (Ecotrin) 81 mg PO DAILY [facility] Last Admin: 03/06/18 08:19 Dose: 81 mg Atorvastatin Calcium (Lipitor) 40 mg PO HS [facility] Last Admin: 03/05/18 22:01 Dose: 40 mg Bacitracin (Bacitracin) 1 ea TOP BID [facility] Last Admin: 03/06/18 17:34 Dose: 1 ea Dextrose (Dextrose 50% Inj) 0 ml IV STAT PRN; Protocol PRN Reason: Hypoglycemia Protocol Dextrose (Glutose 15) 0 gm PO ONCE PRN; Protocol PRN Reason: Hypoglycemia Protocol Dimethicone (Proshield Plus Skin Protectant) 1 applic TOP Q8 [facility] Diphenhydramine HCl (Benadryl) 25 mg PO HS PRN PRN Reason: Insomnia Last Admin: 03/05/18 22:03 Dose: 25 mg Epoetin Sudeep (Procrit) 10,000 unit IV MWF [facility] Last Admin: 03/05/18 16:39 Dose: 10,000 unit Ergocalciferol (Drisdol 50,000 Intl Units Cap) 1 cap PO WED [facility] Fenofibrate (Tricor) 145 mg PO DAILY [facility] Last Admin: 03/06/18 08:20 Dose: 145 mg Glucagon (Glucagen Diagnostic Kit) 0 mg IM STAT PRN; Protocol PRN Reason: Hypoglycemia Protocol Hydralazine HCl (Apresoline) 25 mg PO BID [facility] Last Admin: 03/06/18 17:32 Dose: 25 mg Hydrogen Peroxide (Hydrogen Peroxide 3%) 0 ml TP 0600 [facility] Last Admin: 03/06/18 06:25 Dose: 480 ml Insulin Human NPH (Humulin N) 25 units SC QPM [facility] Last Admin: 03/06/18 19:13 Dose: Not Given Insulin Human Regular (Humulin R) 0 units SC ACHS [facility] PRN Reason: Protocol Last Admin: 03/06/18 17:40 Dose: Not Given Latanoprost (Xalatan Opht) 1 drop OU HS [facility] Last Admin: 03/05/18 22:02 Dose: 1 drop Levothyroxine Sodium (Synthroid) 25 mcg PO 0630 [facility] Last Admin: 03/06/18 06:27 Dose: 25 mcg Loperamide HCl (Imodium) 4 mg PO TID PRN PRN Reason: Diarrhea Last Admin: 03/06/18 08:22 Dose: 4 mg Metoclopramide HCl (Reglan) 5 mg PO 0730,1130,1630 [facility] Last Admin: 03/06/18 17:00 Dose: 5 mg Metoprolol Tartrate (Lopressor) 25 mg PO BID [facility] Last Admin: 03/06/18 17:32 Dose: 25 mg Montelukast Sodium (Singulair) 10 mg PO HS [facility] Last Admin: 03/05/18 22:11 Dose: 10 mg Morphine Sulfate (Morphine Immediate Release Tab) 15 mg PO Q4 PRN PRN Reason: Pain scale 4-10 Last Admin: 03/06/18 06:56 Dose: 15 mg Multivitamins/Minerals (Therapeutic-M Tab) 1 tab PO DAILY [facility] Last Admin: 03/06/18 08:18 Dose: 1 tab Mupirocin (Bactroban Ointment) 1 applic TOP 0600,1800 [facility] Last Admin: 03/06/18 18:16 Dose: 1 applic Pantoprazole Sodium (Protonix Ec Tab) 20 mg PO 0600 [facility] Last Admin: 03/06/18 06:26 Dose: 20 mg Pregabalin (Lyrica) 50 mg PO HS [facility] Last Admin: 03/05/18 22:05 Dose: 50 mg Fluticasone/Salmeterol (Advair Diskus 250/50) 1 puff IH Q12 [facility] Last Admin: 03/06/18 08:15 Dose: 1 puff Sevelamer Carbonate (Renvela) 1,600 mg PO WM@0800,1200,1700 [facility] Last Admin: 03/06/18 17:47 Dose: 1,600 mg Silver Sulfadiazine (Silvadene 1% 20 Gm) 1 ea TOP 0600 [facility] Last Admin: 03/06/18 06:27 Dose: 1 applic Sodium Chloride ([place] Nasal [place]) 1 sprays HÉCTOR Q2 PRN PRN Reason: nasal congestion. Last Admin: 03/02/18 10:02 Dose: 1 spray Ticagrelor (Brilinta) 90 mg PO BID [facility] Last Admin: 03/06/18 17:33 Dose: 90 mg Trazodone HCl (Desyrel) 50 mg PO HS [facility] - Labs Labs: 03/05/18 16:55 03/05/18 16:55 - Constitutional Appears: Non-toxic, No Acute Distress - Eye Exam Eye Exam: Normal appearance - Respiratory Exam Respiratory Exam: absent: Respiratory Distress Additional comments: L sided rales; - Cardiovascular Exam Cardiovascular Exam: RRR. absent: Gallop, Rubs - GI/Abdominal Exam GI & Abdominal Exam: Soft. absent: Distended, Tenderness - Extremities Exam Additional comments: Leg edema improving; - Skin Skin Exam: Warm Assessment and Plan (1) ESRD on hemodialysis Assessment & Plan: Stable volume and electrolyte status; continue HD on MWF schedule; UF goal 3L; Status: Chronic (2) Hypertensive CKD, ESRD on dialysis Assessment & Plan: BP controlled, continue current meds; Status: Chronic (3) Anemia in CKD (chronic kidney disease) Assessment & Plan: Hgb stable, continue EPO on HD; Status: Acute (4) Chronic kidney disease-mineral and bone disorder Status: Chronic (5) S/P BKA (below knee amputation) Assessment & Plan: Standing morphine SR changed to short acting prn; monitor mental status in dialysis patient as metabolites can accumulate if getting morphine frequently; Status: Acute
[2018-03-06] MEDS: Proshield Plus GEL TOP SCH (22:35)
[2018-03-06] MEDS: Latanoprost 0.005% Opht SOUTION OU SCH (22:37)
[2018-03-07] MEDS: Levothyroxine 25 MCG TAB PO SCH (06:46)
[2018-03-07] MEDS: Pantoprazole 20 mg EC Tab PO SCH (06:46)
[2018-03-07] MEDS: Proshield Plus GEL TOP SCH ×3 (06:46→21:46)
[2018-03-07] MEDS: Hydrogen Peroxide 3% Soln (480ml) TP SCH (06:48)
[2018-03-07] MEDS: Insulin Regular 100 units/ml SC SCH ×4 (06:50→21:44)
[2018-03-07] MEDS: Silver Sulfadiazine 1% Cream (20 gm) TOP SCH (06:51)
[2018-03-07] MEDS: Morphine 15 mg Immediate Release Tab PO PRN (08:10)
[2018-03-07] MEDS: Multivitamin With Minerals Tab PO SCH (08:20)
[2018-03-07] MEDS: SEVELAMER CARBONATE 800 MG PO SCH ×3 (08:20→18:08)
[2018-03-07] MEDS: Bacitracin 500 Units/gm Oint Foilpak UD TOP SCH ×2 (08:21→18:04)
[2018-03-07] MEDS: Fluticasone-Salmeterol 250-50mcg Diskus IH SCH ×2 (08:21→21:43)
[2018-03-07] MEDS ORDERED: Ergocalciferol 50,000 Intl Units Cap PO SCH (09:00)
[2018-03-07] MEDS: Atropine-Diphenoxylate 0.025-2.5 mg Tab PO SCH ×3 (13:18→22:15)
[2018-03-07] MEDS: EPOETIN ALFA 10,000 UNIT/ML ML IV SCH (15:25)
[2018-03-07] MEDS: Insulin NPH Human 100 Units/ml Inj SC SCH (18:15)
[2018-03-07 20:55] LABS: HEPATITIS B SURFACE AG Negative (NEGATIVE)
[2018-03-07 21:00] LABS: HEPATITIS B CORE AB NEGATIVE (NEGATIVE)
[2018-03-07 21:13] LABS: HEPATITIS C ANTIBODY NEGATIVE (NEGATIVE)
--- NOTE | 2018-03-07 21:13 | CP.PCM.PN ---
Subjective - Date & Time of Evaluation Date of Evaluation: 03/07/18 Time of Evaluation: 21:11 - Subjective Subjective: Patient seen in the room and noting significant loose but formed stool persisting. On Immodium though but not really helping poor po intake because of this trying in therapies right BKA no pain Objective - Vital Signs/Intake and Output Vital Signs (last 24 hours): Temp Pulse Resp BP Pulse Ox 96.3 F L 63 19 117/60 97 03/07/18 20:44 03/07/18 20:44 03/07/18 20:44 03/07/18 20:44 03/07/18 20:44 - Medications Medications: Current Medications Albuterol/Ipratropium (Duoneb 3 Mg/0.5 Mg (3 Ml) Ud) 3 ml IH RQ6 PRN PRN Reason: Shortness of Breath Last Admin: 03/04/18 08:35 Dose: 3 ml Aspirin (Ecotrin) 81 mg PO DAILY [facility] Last Admin: 03/07/18 08:20 Dose: 81 mg Atorvastatin Calcium (Lipitor) 40 mg PO HS [facility] Last Admin: 03/06/18 22:34 Dose: 40 mg Bacitracin (Bacitracin) 1 ea TOP BID [facility] Last Admin: 03/07/18 18:04 Dose: Not Given Dextrose (Dextrose 50% Inj) 0 ml IV STAT PRN; Protocol PRN Reason: Hypoglycemia Protocol Dextrose (Glutose 15) 0 gm PO ONCE PRN; Protocol PRN Reason: Hypoglycemia Protocol Dimethicone (Proshield Plus Skin Protectant) 1 applic TOP Q8 [facility] Last Admin: 03/07/18 13:16 Dose: 1 applic Diphenhydramine HCl (Benadryl) 25 mg PO HS PRN PRN Reason: Insomnia Last Admin: 03/07/18 01:30 Dose: 25 mg Diphenoxylate HCl/Atropine (Lomotil 0.025-2.5 Mg Tablet) 2 tab PO QID [facility] Last Admin: 03/07/18 18:11 Dose: 2 tab Epoetin Sudeep (Procrit) 10,000 unit IV MWF [facility] Last Admin: 03/07/18 15:25 Dose: 10,000 unit Ergocalciferol (Drisdol 50,000 Intl Units Cap) 1 cap PO WED [facility] Fenofibrate (Tricor) 145 mg PO DAILY [facility] Last Admin: 03/07/18 08:20 Dose: 145 mg Glucagon (Glucagen Diagnostic Kit) 0 mg IM STAT PRN; Protocol PRN Reason: Hypoglycemia Protocol Hydralazine HCl (Apresoline) 25 mg PO BID [facility] Last Admin: 03/07/18 18:02 Dose: Not Given Hydrogen Peroxide (Hydrogen Peroxide 3%) 0 ml TP 0600 [facility] Last Admin: 03/07/18 06:48 Dose: 30 ml Insulin Human NPH (Humulin N) 25 units SC QPM [facility] Last Admin: 03/07/18 18:15 Dose: Not Given Insulin Human Regular (Humulin R) 0 units SC ACHS [facility] PRN Reason: Protocol Last Admin: 03/07/18 18:09 Dose: Not Given Latanoprost (Xalatan Opht) 1 drop OU HS [facility] Last Admin: 03/06/18 22:37 Dose: 1 drop Levothyroxine Sodium (Synthroid) 25 mcg PO 0630 [facility] Last Admin: 03/07/18 06:46 Dose: 25 mcg Metoclopramide HCl (Reglan) 5 mg PO 0730,1130,1630 [facility] Last Admin: 03/07/18 18:07 Dose: 5 mg Metoprolol Tartrate (Lopressor) 25 mg PO BID [facility] Last Admin: 03/07/18 18:05 Dose: Not Given Montelukast Sodium (Singulair) 10 mg PO [facility] Last Admin: 03/06/18 23:14 Dose: 10 mg Morphine Sulfate (Morphine Immediate Release Tab) 15 mg PO Q4 PRN PRN Reason: Pain scale 4-10 Last Admin: 03/07/18 08:10 Dose: 15 mg Multivitamins/Minerals (Therapeutic-M Tab) 1 tab PO DAILY [facility] Last Admin: 03/07/18 08:20 Dose: 1 tab Mupirocin (Bactroban Ointment) 1 applic TOP 0600,1800 [facility] Last Admin: 03/07/18 18:05 Dose: Not Given Pantoprazole Sodium (Protonix Ec Tab) 20 mg PO 0600 [facility] Last Admin: 03/07/18 06:46 Dose: 20 mg Pregabalin (Lyrica) 50 mg PO HS [facility] Last Admin: 03/06/18 22:34 Dose: 50 mg Fluticasone/Salmeterol (Advair Diskus 250/50) 1 puff IH Q12 [facility] Last Admin: 03/07/18 08:21 Dose: 1 puff Sevelamer Carbonate (Renvela) 1,600 mg PO WM@0800,1200,1700 [facility] Last Admin: 03/07/18 18:08 Dose: 1,600 mg Silver Sulfadiazine (Silvadene 1% 20 Gm) 1 ea TOP 0600 [facility] Last Admin: 03/07/18 06:51 Dose: 1 applic Sodium Chloride ([place] Nasal [place]) 1 sprays HÉCTOR Q2 PRN PRN Reason: nasal congestion. Last Admin: 03/02/18 10:02 Dose: 1 spray Ticagrelor (Brilinta) 90 mg PO BID [facility] Last Admin: 03/07/18 18:07 Dose: 90 mg Trazodone HCl (Desyrel) 50 mg PO HS [facility] Last Admin: 03/06/18 22:35 Dose: 50 mg - Labs Labs: 03/05/18 16:55 03/05/18 16:55
[2018-03-07] MEDS: Latanoprost 0.005% Opht SOUTION OU SCH (21:45)
--- NOTE | 2018-03-07 23:18 | CP.PCM.PN ---
Subjective - Date & Time of Evaluation Date of Evaluation: 03/07/18 Time of Evaluation: 19:45 - Subjective Subjective: Reports feeling well; still with persistent diarrhea that he says has been ongoing since several months; was following with GI in [place]; no sob; no nausea/vomiting; tolerating diet; Objective - Vital Signs/Intake and Output Vital Signs (last 24 hours): Temp Pulse Resp BP Pulse Ox 96.3 F L 63 19 117/60 97 03/07/18 20:44 03/07/18 20:44 03/07/18 20:44 03/07/18 20:44 03/07/18 20:44 - Medications Medications: Current Medications Albuterol/Ipratropium (Duoneb 3 Mg/0.5 Mg (3 Ml) Ud) 3 ml IH RQ6 PRN PRN Reason: Shortness of Breath Last Admin: 03/04/18 08:35 Dose: 3 ml Aspirin (Ecotrin) 81 mg PO DAILY [facility] Last Admin: 03/07/18 08:20 Dose: 81 mg Atorvastatin Calcium (Lipitor) 40 mg PO HS [facility] Last Admin: 03/07/18 21:44 Dose: 40 mg Bacitracin (Bacitracin) 1 ea TOP BID [facility] Last Admin: 03/07/18 18:04 Dose: Not Given Dextrose (Dextrose 50% Inj) 0 ml IV STAT PRN; Protocol PRN Reason: Hypoglycemia Protocol Dextrose (Glutose 15) 0 gm PO ONCE PRN; Protocol PRN Reason: Hypoglycemia Protocol Dimethicone (Proshield Plus Skin Protectant) 1 applic TOP Q8 [facility] Last Admin: 03/07/18 21:46 Dose: 1 applic Diphenhydramine HCl (Benadryl) 25 mg PO HS PRN PRN Reason: Insomnia Last Admin: 03/07/18 22:16 Dose: 25 mg Diphenoxylate HCl/Atropine (Lomotil 0.025-2.5 Mg Tablet) 2 tab PO QID [facility] Last Admin: 03/07/18 22:15 Dose: 2 tab Epoetin Sudeep (Procrit) 10,000 unit IV MWF [facility] Last Admin: 03/07/18 15:25 Dose: 10,000 unit Ergocalciferol (Drisdol 50,000 Intl Units Cap) 1 cap PO WED [facility] Fenofibrate (Tricor) 145 mg PO DAILY [facility] Last Admin: 03/07/18 08:20 Dose: 145 mg Glucagon (Glucagen Diagnostic Kit) 0 mg IM STAT PRN; Protocol PRN Reason: Hypoglycemia Protocol Hydralazine HCl (Apresoline) 25 mg PO BID [facility] Last Admin: 03/07/18 18:02 Dose: Not Given Hydrogen Peroxide (Hydrogen Peroxide 3%) 0 ml TP 0600 [facility] Last Admin: 03/07/18 06:48 Dose: 30 ml Insulin Human NPH (Humulin N) 25 units SC QPM [facility] Last Admin: 03/07/18 18:15 Dose: Not Given Insulin Human Regular (Humulin R) 0 units SC ACHS [facility] PRN Reason: Protocol Last Admin: 03/07/18 21:44 Dose: Not Given Latanoprost (Xalatan Opht) 1 drop OU HS [facility] Last Admin: 03/07/18 21:45 Dose: 1 drop Levothyroxine Sodium (Synthroid) 25 mcg PO 0630 [facility] Last Admin: 03/07/18 06:46 Dose: 25 mcg Metoclopramide HCl (Reglan) 5 mg PO 0730,1130,1630 [facility] Last Admin: 03/07/18 18:07 Dose: 5 mg Metoprolol Tartrate (Lopressor) 25 mg PO BID [facility] Last Admin: 03/07/18 18:05 Dose: Not Given Montelukast Sodium (Singulair) 10 mg PO HS [facility] Last Admin: 03/07/18 21:45 Dose: 10 mg Morphine Sulfate (Morphine Immediate Release Tab) 15 mg PO Q4 PRN PRN Reason: Pain scale 4-10 Last Admin: 03/07/18 08:10 Dose: 15 mg Multivitamins/Minerals (Therapeutic-M Tab) 1 tab PO DAILY [facility] Last Admin: 03/07/18 08:20 Dose: 1 tab Mupirocin (Bactroban Ointment) 1 applic TOP 0600,1800 [facility] Last Admin: 03/07/18 18:05 Dose: Not Given Pantoprazole Sodium (Protonix Ec Tab) 20 mg PO 0600 [facility] Last Admin: 03/07/18 06:46 Dose: 20 mg Pregabalin (Lyrica) 50 mg PO HS [facility] Last Admin: 03/07/18 21:43 Dose: 50 mg Fluticasone/Salmeterol (Advair Diskus 250/50) 1 puff IH Q12 [facility] Last Admin: 03/07/18 21:43 Dose: 1 puff Sevelamer Carbonate (Renvela) 1,600 mg PO WM@0800,1200,1700 [facility] Last Admin: 03/07/18 18:08 Dose: 1,600 mg Silver Sulfadiazine (Silvadene 1% 20 Gm) 1 ea TOP 0600 [facility] Last Admin: 03/07/18 06:51 Dose: 1 applic Sodium Chloride ([place] Nasal [place]) 1 sprays HÉCTOR Q2 PRN PRN Reason: nasal congestion. Last Admin: 03/02/18 10:02 Dose: 1 spray Ticagrelor (Brilinta) 90 mg PO BID [facility] Last Admin: 03/07/18 18:07 Dose: 90 mg Trazodone HCl (Desyrel) 50 mg PO HS [facility] Last Admin: 03/07/18 21:45 Dose: 50 mg - Labs Labs: 03/05/18 16:55 03/05/18 16:55 - Constitutional Appears: Non-toxic, No Acute Distress - Eye Exam Eye Exam: Normal appearance - ENT Exam ENT Exam: Mucous Membranes Moist - Respiratory Exam Respiratory Exam: Clear to Ausculation Bilateral. absent: Respiratory Distress - Cardiovascular Exam Cardiovascular Exam: RRR, +S1, +S2 - GI/Abdominal Exam GI & Abdominal Exam: Soft. absent: Distended, Tenderness - Extremities Exam Additional comments: moderate b/l leg edema; - Neurological Exam Neurological Exam: Alert, Awake - Psychiatric Exam Psychiatric exam: Normal Mood. absent: Agitated - Skin Skin Exam: Warm. absent: Cyanosis Assessment and Plan (1) ESRD on hemodialysis Assessment & Plan: Relatively stable volume and electrolyte status; edema improving slightly; tolerating 3.5L net UF today despite persistent diarrhea; will continue with same UF goal on subsequent HD sessions; checking pre-HD lytes; Status: Chronic (2) Hypertensive CKD, ESRD on dialysis Assessment & Plan: BP controlled, continue current meds; Status: Chronic (3) Anemia in CKD (chronic kidney disease) Assessment & Plan: Hgb stable, continue EPO on HD; Status: Acute (4) Chronic kidney disease-mineral and bone disorder Assessment & Plan: On sevelamer 2 tabs w/ meals, continue; will monitor phos periodically; Status: Chronic (5) S/P BKA (below knee amputation) Assessment & Plan: Only receiving prn morphine once today; monitor mental status in HD patient; Status: Acute
[2018-03-08] MEDS: Morphine 15 mg Immediate Release Tab PO PRN ×2 (03:26→21:41)
[2018-03-08] MEDS: Silver Sulfadiazine 1% Cream (20 gm) TOP SCH (06:00)
[2018-03-08] MEDS: Proshield Plus GEL TOP SCH ×3 (06:09→21:46)
[2018-03-08] MEDS: Levothyroxine 25 MCG TAB PO SCH (06:10)
[2018-03-08] MEDS: Pantoprazole 20 mg EC Tab PO SCH (06:10)
[2018-03-08] MEDS: Hydrogen Peroxide 3% Soln (480ml) TP SCH (06:47)
[2018-03-08] MEDS: Insulin Regular 100 units/ml SC SCH ×4 (06:48→21:46)
[2018-03-08] MEDS: Fluticasone-Salmeterol 250-50mcg Diskus IH SCH ×2 (08:30→21:26)
[2018-03-08] MEDS: Multivitamin With Minerals Tab PO SCH (08:31)
[2018-03-08] MEDS: SEVELAMER CARBONATE 800 MG PO SCH ×3 (08:32→17:03)
[2018-03-08] MEDS: Bacitracin 500 Units/gm Oint Foilpak UD TOP SCH ×2 (08:32→17:00)
[2018-03-08] MEDS: Atropine-Diphenoxylate 0.025-2.5 mg Tab PO SCH ×4 (08:52→21:25)
--- NOTE | 2018-03-08 12:29 | CP.PCM.CON ---
History of Present Illness - History of Present Illness History of Present Illness: GI consult note for Dr. Hernandez Constuled for: diarrhea Patient is a 52M with extensive PMH including diabetic gastroparesis for which he takes Reglan, recent GI bleed of the rectum, and intermediate designer antibiotic use for right foot wound who was admitted to [facility] for rehab following a BKA at [facility] ([facility] 10 days ago. Patient states that he has had diarrhea up to 11 times a day for 4 months, at which time he was started on reglan for gastroparesis. patient states that the bowel movements have become more formed the past two days, but previously they were liquid, normal brown color, with no blood or melena, with a regular smell. Patient denies any abdominal pain, nausea , or vomiting except when taking medications in the AM. Patient has had 3 BM's yesterday and 1 today with no blood, loose, with normal color. Denies fevers or chills and is tolerating diet. Patient states he had an EGD at [facility] earlier this month with Dr. Donato, but there is no report found in the chart. Patient states that he has had diagnosed C. diff last year that resolved with antibiotics PMH: PM: ESRD on HD, PAD, DM, CAD s/p KAHLIL 10/01, CHF, COPD, TIA, BPH, hypothryoid , rectal bleed, CHF, pancreatitis, BPH PSH: L eye cornea transplant, AV Fistula, Cholecystectomy, pacemaker, amputation 5 R toes, R BKA All: Aspart, moxifloxacin, penicillin, regular insulin Review of Systems - Review of Systems All systems: reviewed and no additional remarkable complaints except (as per HPI ) Past Patient History - Infectious Disease Hx of Infectious Diseases: None - Tetanus Immunizations Tetanus Immunization: Up to Date - Past Medical History & Family History Past Medical History?: Yes - Past Social History Smoking Status: Never Smoked Alcohol: None Drugs: Denies - CARDIAC Hx Circulatory Problems: Yes (pvd) Hx Hypertension: Yes Hx Pacemaker: Yes (medtronic) Other/Comment: 2 stent placement - PULMONARY Hx Asthma: Yes Hx Chronic Obstructive Pulmonary Disease (COPD): Yes - NEUROLOGICAL HX Cerebrovascular Accident: Yes (r side weakness) - HEENT Hx HEENT Problems: Yes (BILATERAL EYE WITH BLURRY VISION) Hx Cataracts: Yes (HAD SX 3/12/13, r with iol) Hx Epistaxis: Yes Other/Comment: left eye cornea transplant,RENAL RETINOPATHY, glasses, blurred vision - RENAL Hx Dialysis: Yes Date of Last Dialysis Treatment: 02/28/18 Hx Renal Failure: Yes - ENDOCRINE/METABOLIC Hx Diabetes Mellitus Type 1: Yes Hx Diabetes Mellitus Type 2: Yes Hx Hypothyroidism: Yes - HEMATOLOGICAL/ONCOLOGICAL Hx AIDS: No Hx Anemia: Yes Hx Blood Transfusions: Yes Hx Blood Transfusion Reaction: No Hx Human Immunodeficiency Virus (HIV): No - INTEGUMENTARY Hx Dermatological Problems: Yes Other/Comment: generalized multiple skin discolorations and dry wounds over body , rle r ft dressing dry and intact all toes amputated chronic wound ulceration and foul odor heel ulceration gangrrene and bone exposed, rle skin discolorations +1 edema and tightness, inner right ankle1.5cm x 0.5cm deep red dry wound surrounded by pink red skin throbbing pain, healing small wounds to sacrum and b/l buttocks sharan,left hand 3rd finger 0/7cm x 0.5cm round dry brown wound, dry brown wound 1.5cm x 1.5cm to ball of left foot not opened - MUSCULOSKELETAL/RHEUMATOLOGICAL Hx Falls: Yes - GASTROINTESTINAL Hx Gastrointestinal Disorders: Yes (cdif 05/13/17) Hx Gall Bladder Disease: Yes (CHOLECYSTECTOMY) Hx Gastroesophageal Reflux: Yes Hx Liver Failure: Yes (CKD) Hx Pancreatitis: Yes Other/Comment: colon polyps, poor appetite - GENITOURINARY/GYNECOLOGICAL Hx Genitourinary Disorders: Yes (esrd on HD MWF) Hx Hematuria: Yes Hx Prostate Problems: Yes (bph) Hx Urinary Tract Infection: Yes - PSYCHIATRIC Hx Substance Use: No - SURGICAL HISTORY Hx Surgeries: Yes - ANESTHESIA Hx Anesthesia: Yes Hx Anesthesia Reactions: No Hx Malignant Hyperthermia: No Has any member of the family had a problem w/ anesthesia?: No Meds Allergies/Adverse Reactions: Allergies Allergy/AdvReac Type Severity Reaction Status Date / Time insulin aspart [From Novolog] Allergy Intermediate RASH Verified 03/01/18 16:57 moxifloxacin Allergy Intermediate RASH Verified 03/01/18 16:57 Penicillins Allergy Intermediate RASH Verified 03/01/18 16:57 insulin regular Allergy ITCHING Verified 03/01/18 16:57 [From Novolin R Regular U-100 Insuln] - Medications Medications: Current Medications Albuterol/Ipratropium (Duoneb 3 Mg/0.5 Mg (3 Ml) Ud) 3 ml IH RQ6 PRN PRN Reason: Shortness of Breath Last Admin: 03/04/18 08:35 Dose: 3 ml Aspirin (Ecotrin) 81 mg PO DAILY [facility] Last Admin: 03/08/18 08:33 Dose: 81 mg Atorvastatin Calcium (Lipitor) 40 mg PO HS [facility] Last Admin: 03/07/18 21:44 Dose: 40 mg Bacitracin (Bacitracin) 1 ea TOP BID [facility] Last Admin: 03/08/18 08:32 Dose: 1 ea Dextrose (Dextrose 50% Inj) 0 ml IV STAT PRN; Protocol PRN Reason: Hypoglycemia Protocol Dextrose (Glutose 15) 0 gm PO ONCE PRN; Protocol PRN Reason: Hypoglycemia Protocol Dimethicone (Proshield Plus Skin Protectant) 1 applic TOP Q8 [facility] Last Admin: 03/08/18 06:09 Dose: 1 applic Diphenhydramine HCl (Benadryl) 25 mg PO HS PRN PRN Reason: Insomnia Last Admin: 03/07/18 22:16 Dose: 25 mg Diphenoxylate HCl/Atropine (Lomotil 0.025-2.5 Mg Tablet) 2 tab PO QID [facility] Last Admin: 03/08/18 08:52 Dose: 2 tab Epoetin Sudeep (Procrit) 10,000 unit IV MWF [facility] Last Admin: 03/07/18 15:25 Dose: 10,000 unit Ergocalciferol (Drisdol 50,000 Intl Units Cap) 1 cap PO WED [facility] Fenofibrate (Tricor) 145 mg PO DAILY [facility] Last Admin: 03/08/18 08:31 Dose: 145 mg Glucagon (Glucagen Diagnostic Kit) 0 mg IM STAT PRN; Protocol PRN Reason: Hypoglycemia Protocol Hydralazine HCl (Apresoline) 25 mg PO BID [facility] Last Admin: 03/08/18 08:31 Dose: 25 mg Hydrogen Peroxide (Hydrogen Peroxide 3%) 0 ml TP 0600 [facility] Last Admin: 03/08/18 06:47 Dose: 30 ml Insulin Human NPH (Humulin N) 25 units SC QPM [facility] Last Admin: 03/07/18 18:15 Dose: Not Given Insulin Human Regular (Humulin R) 0 units SC ACHS [facility] PRN Reason: Protocol Last Admin: 03/08/18 06:48 Dose: Not Given Latanoprost (Xalatan Opht) 1 drop OU [facility] Last Admin: 03/07/18 21:45 Dose: 1 drop Levothyroxine Sodium (Synthroid) 25 mcg PO 0630 [facility] Last Admin: 03/08/18 06:10 Dose: 25 mcg Metoclopramide HCl (Reglan) 5 mg PO 0730,1130,1630 [facility] Last Admin: 03/08/18 06:41 Dose: 5 mg Metoprolol Tartrate (Lopressor) 25 mg PO BID [facility] Last Admin: 03/08/18 08:31 Dose: 25 mg Montelukast Sodium (Singulair) 10 mg PO [facility] Last Admin: 03/07/18 21:45 Dose: 10 mg Morphine Sulfate (Morphine Immediate Release Tab) 15 mg PO Q4 PRN PRN Reason: Pain scale 4-10 Last Admin: 03/08/18 03:26 Dose: 15 mg Multivitamins/Minerals (Therapeutic-M Tab) 1 tab PO DAILY [facility] Last Admin: 03/08/18 08:31 Dose: 1 tab Mupirocin (Bactroban Ointment) 1 applic TOP 0600,1800 [facility] Last Admin: 03/08/18 06:41 Dose: 1 applic Pregabalin (Lyrica) 50 mg PO [facility] Last Admin: 03/07/18 21:43 Dose: 50 mg Fluticasone/Salmeterol (Advair Diskus 250/50) 1 puff IH Q12 [facility] Last Admin: 03/08/18 08:30 Dose: 1 puff Sevelamer Carbonate (Renvela) 1,600 mg PO WM@0800,1200,1700 [facility] Last Admin: 03/08/18 08:32 Dose: 1,600 mg Silver Sulfadiazine (Silvadene 1% 20 Gm) 1 ea TOP 0600 [facility] Last Admin: 03/08/18 06:00 Dose: 1 applic Sodium Chloride ([place] Nasal [place]) 1 sprays HÉCTOR Q2 PRN PRN Reason: nasal congestion. Last Admin: 03/02/18 10:02 Dose: 1 spray Ticagrelor (Brilinta) 90 mg PO BID [facility] Last Admin: 03/08/18 08:33 Dose: 90 mg Trazodone HCl (Desyrel) 50 mg PO [facility] Last Admin: 03/07/18 21:45 Dose: 50 mg Physical Exam - Constitutional Appears: Well, Non-toxic, No Acute Distress - Head Exam Head Exam: ATRAUMATIC, NORMOCEPHALIC - Eye Exam Eye Exam: Normal appearance. absent: Conjunctival injection, Scleral icterus - ENT Exam ENT Exam: Mucous Membranes Moist, Normal Oropharynx - Respiratory Exam Respiratory Exam: NORMAL BREATHING PATTERN. absent: Accessory Muscle Use, Respiratory Distress - Cardiovascular Exam Cardiovascular Exam: RRR - GI/Abdominal Exam GI & Abdominal Exam: Soft. absent: Distended, Mass, Tenderness - Extremities Exam Additional comments: right leg with BKA - Neurological Exam Neurological exam: Alert, Oriented x3 - Psychiatric Exam Psychiatric exam: Normal Affect, Normal Mood - Skin Skin Exam: Dry, Normal Color, Warm Results - Vital Signs Recent Vital Signs: Last Vital Signs Temp 97.3 F L 03/08/18 09:46 Pulse 77 03/08/18 09:46 Resp 20 03/08/18 09:46 BP 144/77 03/08/18 09:46 Pulse Ox 98 03/08/18 09:46 - Labs Result Diagrams: 03/05/18 16:55 03/05/18 16:55 Labs: Laboratory Results - last 24 hr 03/07/18 03/07/18 03/07/18 15:45 15:45 16:45 POC Glucose (mg/dL) 153 H Hep Bs Antigen Negative Hep Bs Antibody Positive Hep B Core IgM Ab Negative Hepatitis C Antibody Negative 03/07/18 03/08/18 03/08/18 21:18 05:37 11:33 POC Glucose (mg/dL) 165 H 198 H 312 H Hep Bs Antigen Hep Bs Antibody Hep B Core IgM Ab Hepatitis C Antibody Assessment & Plan - Assessment and Plan (Free Text) Assessment: 52M with chronic diarrhea for 4 months--r/o C. diff vs. steatorrhea vs. infectious vs. medication induced Plan: Obtain fecal C. diff, ova and parasites, qualitative fat, and calprotectin D/C protonix Continue lomotil at this time Further plan pending results Discussed with Dr. Mary Haro, PGY2
[2018-03-08] MEDS: Insulin NPH Human 100 Units/ml Inj SC SCH (17:05)
[2018-03-08] MEDS: Latanoprost 0.005% Opht SOUTION OU SCH (21:25)
[2018-03-09] MEDS: Morphine 15 mg Immediate Release Tab PO PRN ×3 (02:03→21:30)
[2018-03-09] MEDS: Levothyroxine 25 MCG TAB PO SCH (06:07)
[2018-03-09] MEDS: Proshield Plus GEL TOP SCH ×3 (06:09→21:12)
[2018-03-09] MEDS: Silver Sulfadiazine 1% Cream (20 gm) TOP SCH (06:09)
[2018-03-09] MEDS: Hydrogen Peroxide 3% Soln (480ml) TP SCH (06:10)
[2018-03-09] MEDS: Insulin Regular 100 units/ml SC SCH ×4 (07:15→21:23)
--- NOTE | 2018-03-09 08:06 | CP.PCM.PN ---
Subjective - Date & Time of Evaluation Date of Evaluation: 03/09/18 Time of Evaluation: 08:04 - Subjective Subjective: GI progress note for Dr. Hernandez Patient seen and examined at bedside in TCU this AM. Patient eating breakfast, states he had 2 formed, non-bloody BM's overnight with some burning sensation in his anal area, but denies any abdominal pain, nausea, vomiting, or any other symptoms. Objective - Vital Signs/Intake and Output Vital Signs (last 24 hours): Temp Pulse Resp BP Pulse Ox 96.3 F L 69 20 124/53 L 100 03/09/18 07:49 03/09/18 07:49 03/09/18 07:49 03/09/18 07:49 03/09/18 07:49 - Medications Medications: Current Medications Albuterol/Ipratropium (Duoneb 3 Mg/0.5 Mg (3 Ml) Ud) 3 ml IH RQ6 PRN PRN Reason: Shortness of Breath Last Admin: 03/04/18 08:35 Dose: 3 ml Aspirin (Ecotrin) 81 mg PO DAILY [facility] Last Admin: 03/08/18 08:33 Dose: 81 mg Atorvastatin Calcium (Lipitor) 40 mg PO HS [facility] Last Admin: 03/08/18 21:24 Dose: 40 mg Bacitracin (Bacitracin) 1 ea TOP BID [facility] Last Admin: 03/08/18 17:00 Dose: 1 ea Dextrose (Dextrose 50% Inj) 0 ml IV STAT PRN; Protocol PRN Reason: Hypoglycemia Protocol Dextrose (Glutose 15) 0 gm PO ONCE PRN; Protocol PRN Reason: Hypoglycemia Protocol Dimethicone (Proshield Plus Skin Protectant) 1 applic TOP Q8 [facility] Last Admin: 03/09/18 06:09 Dose: 1 applic Diphenhydramine HCl (Benadryl) 25 mg PO HS PRN PRN Reason: Insomnia Last Admin: 03/08/18 21:25 Dose: 25 mg Diphenoxylate HCl/Atropine (Lomotil 0.025-2.5 Mg Tablet) 2 tab PO QID [facility] Last Admin: 03/08/18 21:25 Dose: 2 tab Epoetin Sudeep (Procrit) 10,000 unit IV MWF [facility] Last Admin: 03/07/18 15:25 Dose: 10,000 unit Ergocalciferol (Drisdol 50,000 Intl Units Cap) 1 cap PO WED [facility] Fenofibrate (Tricor) 145 mg PO DAILY [facility] Last Admin: 03/08/18 08:31 Dose: 145 mg Glucagon (Glucagen Diagnostic Kit) 0 mg IM STAT PRN; Protocol PRN Reason: Hypoglycemia Protocol Hydralazine HCl (Apresoline) 25 mg PO BID [facility] Last Admin: 03/08/18 17:00 Dose: 25 mg Hydrogen Peroxide (Hydrogen Peroxide 3%) 0 ml TP 0600 [facility] Last Admin: 03/09/18 06:10 Dose: 30 ml Insulin Human NPH (Humulin N) 25 units SC QPM [facility] Last Admin: 03/08/18 17:05 Dose: Not Given Insulin Human Regular (Humulin R) 0 units SC ACHS [facility] PRN Reason: Protocol Last Admin: 03/09/18 07:15 Dose: Not Given Latanoprost (Xalatan Opht) 1 drop OU HS [facility] Last Admin: 03/08/18 21:25 Dose: 1 drop Levothyroxine Sodium (Synthroid) 25 mcg PO 0630 [facility] Last Admin: 03/09/18 06:07 Dose: 25 mcg Metoclopramide HCl (Reglan) 5 mg PO 0730,1130,1630 [facility] Last Admin: 03/09/18 07:14 Dose: 5 mg Metoprolol Tartrate (Lopressor) 25 mg PO BID [facility] Last Admin: 03/08/18 17:02 Dose: 25 mg Montelukast Sodium (Singulair) 10 mg PO HS [facility] Last Admin: 03/08/18 21:24 Dose: 10 mg Morphine Sulfate (Morphine Immediate Release Tab) 15 mg PO Q4 PRN PRN Reason: Pain scale 4-10 Last Admin: 03/09/18 02:03 Dose: 15 mg Multivitamins/Minerals (Therapeutic-M Tab) 1 tab PO DAILY [facility] Last Admin: 03/08/18 08:31 Dose: 1 tab Mupirocin (Bactroban Ointment) 1 applic TOP 0600,1800 [facility] Last Admin: 03/09/18 06:09 Dose: 1 applic Pregabalin (Lyrica) 50 mg PO HS [facility] Last Admin: 03/08/18 21:24 Dose: 50 mg Fluticasone/Salmeterol (Advair Diskus 250/50) 1 puff IH Q12 [facility] Last Admin: 03/08/18 21:26 Dose: 1 puff Sevelamer Carbonate (Renvela) 1,600 mg PO WM@0800,1200,1700 [facility] Last Admin: 03/08/18 17:03 Dose: 1,600 mg Silver Sulfadiazine (Silvadene 1% 20 Gm) 1 ea TOP 0600 [facility] Last Admin: 03/09/18 06:09 Dose: 1 applic Sodium Chloride ([place] Nasal [place]) 1 sprays HÉCTOR Q2 PRN PRN Reason: nasal congestion. Last Admin: 03/02/18 10:02 Dose: 1 spray Ticagrelor (Brilinta) 90 mg PO BID [facility] Last Admin: 03/08/18 17:01 Dose: 90 mg Trazodone HCl (Desyrel) 50 mg PO HS [facility] Last Admin: 03/08/18 21:25 Dose: 50 mg - Labs Labs: 03/05/18 16:55 03/05/18 16:55 - Constitutional Appears: Well, Non-toxic, No Acute Distress - Head Exam Head Exam: ATRAUMATIC, NORMOCEPHALIC - Eye Exam Eye Exam: Normal appearance. absent: Conjunctival injection - ENT Exam ENT Exam: Mucous Membranes Moist, Normal Oropharynx - Respiratory Exam Respiratory Exam: NORMAL BREATHING PATTERN. absent: Accessory Muscle Use, Respiratory Distress - GI/Abdominal Exam GI & Abdominal Exam: Soft. absent: Distended, Tenderness - Extremities Exam Additional comments: right BKA - Neurological Exam Neurological Exam: Alert, Awake, Oriented x3 - Psychiatric Exam Psychiatric exam: Normal Affect, Normal Mood - Skin Skin Exam: Dry, Intact, Normal Color, Warm Assessment and Plan - Assessment and Plan (Free Text) Assessment: 52M with chronic diarrhea--now resolving Plan: F/U stool c. diff and tests Continue to monitor bowel function and diet tolerance Continue lomotil PRN and holding protonix at this time Further recommendations pending test results Discussed with Dr. Hernandez, who agrees with above Mia Haro, PGY2
[2018-03-09] MEDS: Fluticasone-Salmeterol 250-50mcg Diskus IH SCH ×2 (09:07→21:12)
[2018-03-09] MEDS: SEVELAMER CARBONATE 800 MG PO SCH ×3 (09:08→17:22)
[2018-03-09] MEDS: Multivitamin With Minerals Tab PO SCH (09:09)
[2018-03-09] MEDS: Bacitracin 500 Units/gm Oint Foilpak UD TOP SCH ×2 (09:11→17:17)
[2018-03-09] MEDS: Atropine-Diphenoxylate 0.025-2.5 mg Tab PO SCH (09:16)
--- NOTE | 2018-03-09 11:02 | CP.PCM.CON ---
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 Pt re-referred for intervention/support on the rehab unit. Pt reported satisfaction with care and gains made. Pt spoke of optimism, commitment to independence, living life and return to family. Pt spoke of anxiety at times, interventions presented to reduce anxiety/distress. Support provided. Plan: Continued sup therapy Past Patient History - Infectious Disease Hx of Infectious Diseases: None - Tetanus Immunizations Tetanus Immunization: Up to Date - Past Medical History & Family History Past Medical History?: Yes - Past Social History Smoking Status: Never Smoked Alcohol: None Drugs: Denies - CARDIAC Hx Circulatory Problems: Yes (pvd) Hx Hypertension: Yes Hx Pacemaker: Yes (medtronic) Other/Comment: 2 stent placement - PULMONARY Hx Asthma: Yes Hx Chronic Obstructive Pulmonary Disease (COPD): Yes - NEUROLOGICAL HX Cerebrovascular Accident: Yes (r side weakness) - HEENT Hx HEENT Problems: Yes (BILATERAL EYE WITH BLURRY VISION) Hx Cataracts: Yes (HAD SX 09/25/12, r with iol) Hx Epistaxis: Yes Other/Comment: left eye cornea transplant,RENAL RETINOPATHY, glasses, blurred vision - RENAL Hx Dialysis: Yes Date of Last Dialysis Treatment: 02/28/18 Hx Renal Failure: Yes - ENDOCRINE/METABOLIC Hx Diabetes Mellitus Type 1: Yes Hx Diabetes Mellitus Type 2: Yes Hx Hypothyroidism: Yes - HEMATOLOGICAL/ONCOLOGICAL Hx AIDS: No Hx Anemia: Yes Hx Blood Transfusions: Yes Hx Blood Transfusion Reaction: No Hx Human Immunodeficiency Virus (HIV): No - INTEGUMENTARY Hx Dermatological Problems: Yes Other/Comment: generalized multiple skin discolorations and dry wounds over body , rle r ft dressing dry and intact all toes amputated chronic wound ulceration and foul odor heel ulceration gangrrene and bone exposed, rle skin discolorations +1 edema and tightness, inner right ankle1.5cm x 0.5cm deep red dry wound surrounded by pink red skin throbbing pain, healing small wounds to sacrum and b/l buttocks potato peeler,left hand 3rd finger 0/7cm x 0.5cm round dry brown wound, dry brown wound 1.5cm x 1.5cm to ball of left foot not opened - MUSCULOSKELETAL/RHEUMATOLOGICAL Hx Falls: Yes - GASTROINTESTINAL Hx Gastrointestinal Disorders: Yes (cdif 05/13/17) Hx Gall Bladder Disease: Yes (CHOLECYSTECTOMY) Hx Gastroesophageal Reflux: Yes Hx Liver Failure: Yes (CKD) Hx Pancreatitis: Yes Other/Comment: colon polyps, poor appetite - GENITOURINARY/GYNECOLOGICAL Hx Genitourinary Disorders: Yes (esrd on HD MWF) Hx Hematuria: Yes Hx Prostate Problems: Yes (bph) Hx Urinary Tract Infection: Yes - PSYCHIATRIC Hx Substance Use: No - SURGICAL HISTORY Hx Surgeries: Yes - ANESTHESIA Hx Anesthesia: Yes Hx Anesthesia Reactions: No Hx Malignant Hyperthermia: No Has any member of the family had a problem w/ anesthesia?: No Meds Allergies/Adverse Reactions: Allergies Allergy/AdvReac Type Severity Reaction Status Date / Time insulin aspart [From Novolog] Allergy Intermediate RASH Verified 03/01/18 16:57 moxifloxacin Allergy Intermediate RASH Verified 03/01/18 16:57 Penicillins Allergy Intermediate RASH Verified 03/01/18 16:57 insulin regular Allergy ITCHING Verified 03/01/18 16:57 [From Novolin R Regular U-100 Insuln] - Medications Medications: Current Medications Albuterol/Ipratropium (Duoneb 3 Mg/0.5 Mg (3 Ml) Ud) 3 ml IH RQ6 PRN PRN Reason: Shortness of Breath Last Admin: 03/04/18 08:35 Dose: 3 ml Aspirin (Ecotrin) 81 mg PO DAILY [facility] Last Admin: 03/09/18 09:09 Dose: 81 mg Atorvastatin Calcium (Lipitor) 40 mg PO HS [facility] Last Admin: 03/08/18 21:24 Dose: 40 mg Bacitracin (Bacitracin) 1 ea TOP BID [facility] Last Admin: 03/09/18 09:11 Dose: 1 ea Dextrose (Dextrose 50% Inj) 0 ml IV STAT PRN; Protocol PRN Reason: Hypoglycemia Protocol Dextrose (Glutose 15) 0 gm PO ONCE PRN; Protocol PRN Reason: Hypoglycemia Protocol Dimethicone (Proshield Plus Skin Protectant) 1 applic TOP Q8 [facility] Last Admin: 03/09/18 06:09 Dose: 1 applic Diphenhydramine HCl (Benadryl) 25 mg PO HS PRN PRN Reason: Insomnia Last Admin: 03/08/18 21:25 Dose: 25 mg Diphenoxylate HCl/Atropine (Lomotil 0.025-2.5 Mg Tablet) 2 tab PO QID PRN PRN Reason: Diarrhea Epoetin Sudeep (Procrit) 10,000 unit IV MWF [facility] Last Admin: 03/07/18 15:25 Dose: 10,000 unit Ergocalciferol (Drisdol 50,000 Intl Units Cap) 1 cap PO WED [facility] Fenofibrate (Tricor) 145 mg PO DAILY [facility] Last Admin: 03/09/18 09:09 Dose: 145 mg Glucagon (Glucagen Diagnostic Kit) 0 mg IM STAT PRN; Protocol PRN Reason: Hypoglycemia Protocol Hydralazine HCl (Apresoline) 25 mg PO BID [facility] Last Admin: 03/08/18 17:00 Dose: 25 mg Hydrogen Peroxide (Hydrogen Peroxide 3%) 0 ml TP 0600 [facility] Last Admin: 03/09/18 06:10 Dose: 30 ml Insulin Human NPH (Humulin N) 25 units SC QPM [facility] Last Admin: 03/08/18 17:05 Dose: Not Given Insulin Human Regular (Humulin R) 0 units SC ACHS [facility] PRN Reason: Protocol Last Admin: 03/09/18 07:15 Dose: Not Given Latanoprost (Xalatan Opht) 1 drop OU HS [facility] Last Admin: 03/08/18 21:25 Dose: 1 drop Levothyroxine Sodium (Synthroid) 25 mcg PO 0630 [facility] Last Admin: 03/09/18 06:07 Dose: 25 mcg Metoclopramide HCl (Reglan) 5 mg PO 0730,1130,1630 [facility] Last Admin: 03/09/18 07:14 Dose: 5 mg Metoprolol Tartrate (Lopressor) 25 mg PO BID [facility] Last Admin: 03/09/18 09:08 Dose: 25 mg Montelukast Sodium (Singulair) 10 mg PO HS [facility] Last Admin: 03/08/18 21:24 Dose: 10 mg Morphine Sulfate (Morphine Immediate Release Tab) 15 mg PO Q4 PRN PRN Reason: Pain scale 4-10 Last Admin: 03/09/18 02:03 Dose: 15 mg Multivitamins/Minerals (Therapeutic-M Tab) 1 tab PO DAILY [facility] Last Admin: 03/09/18 09:09 Dose: 1 tab Mupirocin (Bactroban Ointment) 1 applic TOP 0600,1800 [facility] Last Admin: 03/09/18 06:09 Dose: 1 applic Pregabalin (Lyrica) 50 mg PO HS [facility] Last Admin: 03/08/18 21:24 Dose: 50 mg Fluticasone/Salmeterol (Advair Diskus 250/50) 1 puff IH Q12 [facility] Last Admin: 03/09/18 09:07 Dose: 1 puff Sevelamer Carbonate (Renvela) 1,600 mg PO WM@0800,1200,1700 [facility] Last Admin: 03/09/18 09:08 Dose: 1,600 mg Silver Sulfadiazine (Silvadene 1% 20 Gm) 1 ea TOP 0600 [facility] Last Admin: 03/09/18 06:09 Dose: 1 applic Sodium Chloride ([place] Nasal [place]) 1 sprays HÉCTOR Q2 PRN PRN Reason: nasal congestion. Last Admin: 03/02/18 10:02 Dose: 1 spray Ticagrelor (Brilinta) 90 mg PO BID [facility] Last Admin: 03/09/18 09:09 Dose: 90 mg Trazodone HCl (Desyrel) 50 mg PO [facility] Last Admin: 03/08/18 21:25 Dose: 50 mg Results - Vital Signs Recent Vital Signs: Last Vital Signs Temp 96.3 F L 03/09/18 07:49 Pulse 69 03/09/18 09:08 Resp 20 03/09/18 07:49 BP 124/63 03/09/18 09:08 Pulse Ox 100 03/09/18 07:49 - Labs Result Diagrams: 03/05/18 16:55 03/05/18 16:55 Labs: Laboratory Results - last 24 hr 03/08/18 03/08/18 03/08/18 11:33 16:23 20:09 POC Glucose (mg/dL) 312 H 213 H 174 H 03/09/18 06:04 POC Glucose (mg/dL) 174 H
[2018-03-09] MEDS: EPOETIN ALFA 10,000 UNIT/ML ML IV SCH (15:24)
[2018-03-09] MEDS: Insulin NPH Human 100 Units/ml Inj SC SCH (17:20)
[2018-03-09] MEDS: Latanoprost 0.005% Opht SOUTION OU SCH (21:10)
[2018-03-09] MEDS: Atropine-Diphenoxylate 0.025-2.5 mg Tab PO PRN (21:12)
--- NOTE | 2018-03-09 23:14 | CP.PCM.PN ---
Subjective - Date & Time of Evaluation Date of Evaluation: 03/09/18 Time of Evaluation: 19:30 - Subjective Subjective: Patient reports feeling well; no sob; diarrhea improving with lomotil; tolerating diet; tolerated UF on HD; standing with PT; Objective - Vital Signs/Intake and Output Vital Signs (last 24 hours): Temp Pulse Resp BP Pulse Ox 96.3 F L 68 20 130/63 100 03/09/18 07:49 03/09/18 17:21 03/09/18 07:49 03/09/18 17:21 03/09/18 07:49 Intake and Output: 03/09/18 03/10/18 18:59 06:59 Intake Total 500 Balance 500 - Medications Medications: Current Medications Albuterol/Ipratropium (Duoneb 3 Mg/0.5 Mg (3 Ml) Ud) 3 ml IH RQ6 PRN PRN Reason: Shortness of Breath Last Admin: 03/04/18 08:35 Dose: 3 ml Aspirin (Ecotrin) 81 mg PO DAILY [facility] Last Admin: 03/09/18 09:09 Dose: 81 mg Atorvastatin Calcium (Lipitor) 40 mg PO HS [facility] Last Admin: 03/09/18 21:11 Dose: 40 mg Bacitracin (Bacitracin) 1 ea TOP BID [facility] Last Admin: 03/09/18 17:17 Dose: 1 ea Dextrose (Dextrose 50% Inj) 0 ml IV STAT PRN; Protocol PRN Reason: Hypoglycemia Protocol Dextrose (Glutose 15) 0 gm PO ONCE PRN; Protocol PRN Reason: Hypoglycemia Protocol Dimethicone (Proshield Plus Skin Protectant) 1 applic TOP Q8 [facility] Last Admin: 03/09/18 21:12 Dose: 1 applic Diphenhydramine HCl (Benadryl) 25 mg PO HS PRN PRN Reason: Insomnia Last Admin: 03/09/18 21:11 Dose: 25 mg Diphenoxylate HCl/Atropine (Lomotil 0.025-2.5 Mg Tablet) 2 tab PO QID PRN PRN Reason: Diarrhea Last Admin: 03/09/18 21:12 Dose: 2 tab Epoetin Sudeep (Procrit) 10,000 unit IV MWF [facility] Last Admin: 03/09/18 15:24 Dose: 10,000 unit Ergocalciferol (Drisdol 50,000 Intl Units Cap) 1 cap PO WED [facility] Fenofibrate (Tricor) 145 mg PO DAILY [facility] Last Admin: 03/09/18 09:09 Dose: 145 mg Glucagon (Glucagen Diagnostic Kit) 0 mg IM STAT PRN; Protocol PRN Reason: Hypoglycemia Protocol Hydralazine HCl (Apresoline) 25 mg PO BID [facility] Last Admin: 03/09/18 17:16 Dose: 25 mg Hydrogen Peroxide (Hydrogen Peroxide 3%) 0 ml TP 0600 [facility] Last Admin: 03/09/18 06:10 Dose: 30 ml Insulin Human NPH (Humulin N) 25 units SC QPM [facility] Last Admin: 03/09/18 17:20 Dose: Not Given Insulin Human Regular (Humulin R) 0 units SC ACHS [facility] PRN Reason: Protocol Last Admin: 03/09/18 21:23 Dose: Not Given Latanoprost (Xalatan Opht) 1 drop OU HS [facility] Last Admin: 03/09/18 21:10 Dose: 1 drop Levothyroxine Sodium (Synthroid) 25 mcg PO 0630 [facility] Last Admin: 03/09/18 06:07 Dose: 25 mcg Metoclopramide HCl (Reglan) 5 mg PO 0730,1130,1630 [facility] Last Admin: 03/09/18 17:31 Dose: 5 mg Metoprolol Tartrate (Lopressor) 25 mg PO BID [facility] Last Admin: 03/09/18 17:21 Dose: 25 mg Montelukast Sodium (Singulair) 10 mg PO HS [facility] Last Admin: 03/09/18 21:11 Dose: 10 mg Morphine Sulfate (Morphine Immediate Release Tab) 15 mg PO Q4 PRN PRN Reason: Pain scale 4-10 Last Admin: 03/09/18 12:23 Dose: 15 mg Multivitamins/Minerals (Therapeutic-M Tab) 1 tab PO DAILY [facility] Last Admin: 03/09/18 09:09 Dose: 1 tab Mupirocin (Bactroban Ointment) 1 applic TOP 0600,1800 [facility] Last Admin: 03/09/18 17:17 Dose: 1 applic Pregabalin (Lyrica) 50 mg PO HS [facility] Last Admin: 03/09/18 21:12 Dose: 50 mg Fluticasone/Salmeterol (Advair Diskus 250/50) 1 puff IH Q12 [facility] Last Admin: 03/09/18 21:12 Dose: 1 puff Sevelamer Carbonate (Renvela) 1,600 mg PO WM@0800,1200,1700 [facility] Last Admin: 03/09/18 17:22 Dose: 1,600 mg Silver Sulfadiazine (Silvadene 1% 20 Gm) 1 ea TOP 0600 [facility] Last Admin: 03/09/18 06:09 Dose: 1 applic Sodium Chloride ([place] Nasal [place]) 1 sprays HÉCTOR Q2 PRN PRN Reason: nasal congestion. Last Admin: 03/02/18 10:02 Dose: 1 spray Ticagrelor (Brilinta) 90 mg PO BID [facility] Last Admin: 03/09/18 17:18 Dose: 90 mg Trazodone HCl (Desyrel) 50 mg PO HS [facility] Last Admin: 03/09/18 21:11 Dose: 50 mg - Labs Labs: 03/05/18 16:55 03/05/18 16:55 - Constitutional Appears: Non-toxic, No Acute Distress - Eye Exam Eye Exam: Normal appearance. absent: Scleral icterus - ENT Exam ENT Exam: Mucous Membranes Moist - Respiratory Exam Respiratory Exam: Rales. absent: Respiratory Distress - Cardiovascular Exam Cardiovascular Exam: RRR. absent: Gallop, Rubs - GI/Abdominal Exam GI & Abdominal Exam: Soft. absent: Distended, Tenderness - Extremities Exam Additional comments: mild to moderate leg edema b/l (improved); - Neurological Exam Neurological Exam: Alert, Awake - Psychiatric Exam Psychiatric exam: Normal Mood. absent: Agitated - Skin Skin Exam: Warm. absent: Cyanosis Assessment and Plan (1) ESRD on hemodialysis Assessment & Plan: Stable volume status; will draw labs on Monday prior to next HD session; otherwise, continue with HD on MWF schedule with UF goal of 3.5L; Status: Chronic (2) Hypertensive CKD, ESRD on dialysis Assessment & Plan: BP controlled, continue current meds; Status: Chronic (3) Anemia in CKD (chronic kidney disease) Assessment & Plan: Hgb stable, continue EPO on HD; will repeat ferritin level on Monday; Status: Acute (4) Chronic kidney disease-mineral and bone disorder Assessment & Plan: PTH oversuppressed; holding calcitriol; continue sevalamer 2 tabs w/ meals, will check phos on Monday; Status: Chronic (5) S/P BKA (below knee amputation) Assessment & Plan: Getting morphine prn rather frequently, monitor for mental status changes in ESRD patient (morphine metabolites can accumulate); consider downgrading pain med to tramadol/percocet; Status: Acute
[2018-03-10] MEDS: Levothyroxine 25 MCG TAB PO SCH (05:54)
[2018-03-10] MEDS: Proshield Plus GEL TOP SCH ×3 (05:55→21:28)
[2018-03-10] MEDS: Silver Sulfadiazine 1% Cream (20 gm) TOP SCH (05:56)
[2018-03-10] MEDS: Hydrogen Peroxide 3% Soln (480ml) TP SCH (06:00)
[2018-03-10] MEDS: Insulin Regular 100 units/ml SC SCH ×5 (07:25→21:27)
[2018-03-10] MEDS: Fluticasone-Salmeterol 250-50mcg Diskus IH SCH ×2 (08:40→21:26)
[2018-03-10] MEDS: SEVELAMER CARBONATE 800 MG PO SCH ×3 (08:41→17:16)
[2018-03-10] MEDS: Multivitamin With Minerals Tab PO SCH (08:41)
[2018-03-10] MEDS: Bacitracin 500 Units/gm Oint Foilpak UD TOP SCH ×2 (08:42→17:17)
[2018-03-10] MEDS: Atropine-Diphenoxylate 0.025-2.5 mg Tab PO PRN (08:48)
[2018-03-10] MEDS: Morphine 15 mg Immediate Release Tab PO PRN ×2 (14:47→21:36)
[2018-03-10] MEDS: Insulin NPH Human 100 Units/ml Inj SC SCH (17:24)
[2018-03-10] MEDS: Latanoprost 0.005% Opht SOUTION OU SCH (21:29)
[2018-03-10] MEDS: Atropine-Diphenoxylate 0.025-2.5 mg Tab PO SCH (21:35)
[2018-03-11] MEDS: Levothyroxine 25 MCG TAB PO SCH (06:26)
[2018-03-11] MEDS: Hydrogen Peroxide 3% Soln (480ml) TP SCH (06:28)
[2018-03-11] MEDS: Proshield Plus GEL TOP SCH ×3 (06:29→21:02)
[2018-03-11] MEDS: Silver Sulfadiazine 1% Cream (20 gm) TOP SCH (06:30)
[2018-03-11] MEDS: Insulin Regular 100 units/ml SC SCH ×4 (06:38→21:00)
[2018-03-11] MEDS: Morphine 15 mg Immediate Release Tab PO PRN ×3 (08:16→21:13)
[2018-03-11] MEDS: SEVELAMER CARBONATE 800 MG PO SCH ×3 (08:19→17:11)
[2018-03-11] MEDS: Multivitamin With Minerals Tab PO SCH (08:47)
[2018-03-11] MEDS: Fluticasone-Salmeterol 250-50mcg Diskus IH SCH ×2 (08:56→21:00)
[2018-03-11] MEDS: Bacitracin 500 Units/gm Oint Foilpak UD TOP SCH ×2 (08:57→17:05)
[2018-03-11] MEDS: Atropine-Diphenoxylate 0.025-2.5 mg Tab PO SCH ×2 (09:00→21:13)
[2018-03-11] MEDS: Insulin NPH Human 100 Units/ml Inj SC SCH (17:35)
[2018-03-11] MEDS: Latanoprost 0.005% Opht SOUTION OU SCH (21:03)
[2018-03-12] MEDS: Proshield Plus GEL TOP SCH ×3 (05:21→23:43)
[2018-03-12] MEDS: Hydrogen Peroxide 3% Soln (480ml) TP SCH (05:21)
[2018-03-12] MEDS: Silver Sulfadiazine 1% Cream (20 gm) TOP SCH (05:21)
--- NOTE | 2018-03-12 05:49 | CP.PCM.PN ---
Subjective - Date & Time of Evaluation Date of Evaluation: 03/05/18 Time of Evaluation: 10:00 - Subjective Subjective: Patient is doing a lot better Has less episodes of loose stools Stool exams are all negative for parasite and C diff Has no fever Has no abd pain Objective - Vital Signs/Intake and Output Vital Signs (last 24 hours): Temp Pulse Resp BP Pulse Ox 97.7 F 82 20 113/53 L 97 03/11/18 20:54 03/11/18 20:54 03/11/18 20:54 03/11/18 20:54 03/11/18 20:54 Intake and Output: 03/11/18 03/12/18 18:59 06:59 Intake Total 520 Balance 520 - Medications Medications: Current Medications Albuterol/Ipratropium (Duoneb 3 Mg/0.5 Mg (3 Ml) Ud) 3 ml IH RQ6 PRN PRN Reason: Shortness of Breath Last Admin: 03/04/18 08:35 Dose: 3 ml Alprazolam (Xanax) 0.25 mg PO HS PRN PRN Reason: Anxiety Stop: 03/17/18 14:38 Aspirin (Ecotrin) 81 mg PO DAILY [facility] Last Admin: 03/11/18 08:57 Dose: 81 mg Atorvastatin Calcium (Lipitor) 40 mg PO HS [facility] Last Admin: 03/11/18 21:02 Dose: 40 mg Bacitracin (Bacitracin) 1 ea TOP BID [facility] Last Admin: 03/11/18 17:05 Dose: 1 ea Capsaicin (Trixaicin Cream) 1 applic TOP Q6 PRN PRN Reason: bilateral wrist pain Last Admin: 03/10/18 17:15 Dose: 1 applic Dextrose (Dextrose 50% Inj) 0 ml IV STAT PRN; Protocol PRN Reason: Hypoglycemia Protocol Dextrose (Glutose 15) 0 gm PO ONCE PRN; Protocol PRN Reason: Hypoglycemia Protocol Dimethicone (Proshield Plus Skin Protectant) 1 applic TOP Q8 [facility] Last Admin: 03/12/18 05:21 Dose: 1 applic Diphenhydramine HCl (Benadryl) 25 mg PO HS PRN PRN Reason: Insomnia Last Admin: 03/09/18 21:11 Dose: 25 mg Diphenoxylate HCl/Atropine (Lomotil 0.025-2.5 Mg Tablet) 2 tab PO Q12 [facility] Last Admin: 03/11/18 21:13 Dose: 2 tab Epoetin Sudeep (Procrit) 10,000 unit IV MWF [facility] Last Admin: 03/09/18 15:24 Dose: 10,000 unit Ergocalciferol (Drisdol 50,000 Intl Units Cap) 1 cap PO WED [facility] Fenofibrate (Tricor) 145 mg PO DAILY [facility] Last Admin: 03/11/18 08:47 Dose: 145 mg Glucagon (Glucagen Diagnostic Kit) 0 mg IM STAT PRN; Protocol PRN Reason: Hypoglycemia Protocol Hydralazine HCl (Apresoline) 25 mg PO BID [facility] Last Admin: 03/11/18 17:05 Dose: 25 mg Hydrogen Peroxide (Hydrogen Peroxide 3%) 0 ml TP 0600 [facility] Last Admin: 03/12/18 05:21 Dose: 480 ml Insulin Human NPH (Humulin N) 25 units SC QPM [facility] Last Admin: 03/11/18 17:35 Dose: Not Given Insulin Human Regular (Humulin R) 0 units SC ACHS [facility] PRN Reason: Protocol Last Admin: 03/11/18 21:00 Dose: Not Given Latanoprost (Xalatan Opht) 1 drop OU HS [facility] Last Admin: 03/11/18 21:03 Dose: 1 drop Levothyroxine Sodium (Synthroid) 25 mcg PO 0630 [facility] Last Admin: 03/11/18 06:26 Dose: 25 mcg Metoclopramide HCl (Reglan) 5 mg PO 0730,1130,1630 [facility] Last Admin: 03/11/18 17:11 Dose: 5 mg Metoprolol Tartrate (Lopressor) 25 mg PO BID [facility] Last Admin: 03/11/18 17:10 Dose: 25 mg Montelukast Sodium (Singulair) 10 mg PO HS [facility] Last Admin: 03/11/18 21:03 Dose: 10 mg Morphine Sulfate (Morphine Immediate Release Tab) 15 mg PO Q4 PRN PRN Reason: Pain scale 4-10 Last Admin: 03/11/18 21:13 Dose: 15 mg Multivitamins/Minerals (Therapeutic-M Tab) 1 tab PO DAILY [facility] Last Admin: 03/11/18 08:47 Dose: 1 tab Mupirocin (Bactroban Ointment) 1 applic TOP 0600,1800 [facility] Last Admin: 03/12/18 05:20 Dose: 1 applic Pregabalin (Lyrica) 50 mg PO HS [facility] Last Admin: 03/11/18 21:13 Dose: 50 mg Fluticasone/Salmeterol (Advair Diskus 250/50) 1 puff IH Q12 [facility] Last Admin: 03/11/18 21:00 Dose: 1 puff Sevelamer Carbonate (Renvela) 1,600 mg PO WM@0800,1200,1700 [facility] Last Admin: 03/11/18 17:11 Dose: 1,600 mg Silver Sulfadiazine (Silvadene 1% 20 Gm) 1 ea TOP 0600 [facility] Last Admin: 03/12/18 05:21 Dose: 1 applic Sodium Chloride ([place] Nasal [place]) 1 sprays HÉCTOR Q2 PRN PRN Reason: nasal congestion. Last Admin: 03/02/18 10:02 Dose: 1 spray Ticagrelor (Brilinta) 90 mg PO BID [facility] Last Admin: 03/11/18 17:09 Dose: 90 mg Trazodone HCl (Desyrel) 50 mg PO HS [facility] Last Admin: 03/11/18 21:02 Dose: 50 mg - Labs Labs: 03/05/18 16:55 03/05/18 16:55 - Eye Exam Eye Exam: Normal appearance - Respiratory Exam Respiratory Exam: NORMAL BREATHING PATTERN - Cardiovascular Exam Cardiovascular Exam: REGULAR RHYTHM - GI/Abdominal Exam GI & Abdominal Exam: Normal Bowel Sounds - Neurological Exam Neurological Exam: Awake, Oriented x3 Assessment and Plan (1) Chronic diarrhea Status: Acute (2) Anemia in CKD (chronic kidney disease) Status: Acute (3) Malabsorption Status: Acute (4) S/P BKA (below knee amputation) Status: Acute (5) CAD (coronary artery disease) Status: Chronic (6) ESRD on hemodialysis Status: Chronic (7) Uncontrolled diabetes mellitus Status: Acute (8) Hypertension Status: Chronic - Assessment and Plan (Free Text) Plan: Cont meds Cont tx Cont PT start lomotil Gi eval.
--- NOTE | 2018-03-12 05:51 | CP.PCM.PN ---
Subjective - Date & Time of Evaluation Date of Evaluation: 03/07/18 Time of Evaluation: 10:40 - Subjective Subjective: Patient is doing a lot better Has no chest pain or SOB Has less diarrhea. No abd pain Doing well with PT. Objective - Vital Signs/Intake and Output Vital Signs (last 24 hours): Temp Pulse Resp BP Pulse Ox 97.7 F 82 20 113/53 L 97 03/11/18 20:54 03/11/18 20:54 03/11/18 20:54 03/11/18 20:54 03/11/18 20:54 Intake and Output: 03/11/18 03/12/18 18:59 06:59 Intake Total 520 Balance 520 - Medications Medications: Current Medications Albuterol/Ipratropium (Duoneb 3 Mg/0.5 Mg (3 Ml) Ud) 3 ml IH RQ6 PRN PRN Reason: Shortness of Breath Last Admin: 03/04/18 08:35 Dose: 3 ml Alprazolam (Xanax) 0.25 mg PO HS PRN PRN Reason: Anxiety Stop: 03/17/18 14:38 Aspirin (Ecotrin) 81 mg PO DAILY [facility] Last Admin: 03/11/18 08:57 Dose: 81 mg Atorvastatin Calcium (Lipitor) 40 mg PO HS [facility] Last Admin: 03/11/18 21:02 Dose: 40 mg Bacitracin (Bacitracin) 1 ea TOP BID [facility] Last Admin: 03/11/18 17:05 Dose: 1 ea Capsaicin (Trixaicin Cream) 1 applic TOP Q6 PRN PRN Reason: bilateral wrist pain Last Admin: 03/10/18 17:15 Dose: 1 applic Dextrose (Dextrose 50% Inj) 0 ml IV STAT PRN; Protocol PRN Reason: Hypoglycemia Protocol Dextrose (Glutose 15) 0 gm PO ONCE PRN; Protocol PRN Reason: Hypoglycemia Protocol Dimethicone (Proshield Plus Skin Protectant) 1 applic TOP Q8 [facility] Last Admin: 03/12/18 05:21 Dose: 1 applic Diphenhydramine HCl (Benadryl) 25 mg PO HS PRN PRN Reason: Insomnia Last Admin: 03/09/18 21:11 Dose: 25 mg Diphenoxylate HCl/Atropine (Lomotil 0.025-2.5 Mg Tablet) 2 tab PO Q12 [facility] Last Admin: 03/11/18 21:13 Dose: 2 tab Epoetin Sudeep (Procrit) 10,000 unit IV MWF [facility] Last Admin: 03/09/18 15:24 Dose: 10,000 unit Ergocalciferol (Drisdol 50,000 Intl Units Cap) 1 cap PO WED [facility] Fenofibrate (Tricor) 145 mg PO DAILY [facility] Last Admin: 03/11/18 08:47 Dose: 145 mg Glucagon (Glucagen Diagnostic Kit) 0 mg IM STAT PRN; Protocol PRN Reason: Hypoglycemia Protocol Hydralazine HCl (Apresoline) 25 mg PO BID [facility] Last Admin: 03/11/18 17:05 Dose: 25 mg Hydrogen Peroxide (Hydrogen Peroxide 3%) 0 ml TP 0600 [facility] Last Admin: 03/12/18 05:21 Dose: 480 ml Insulin Human NPH (Humulin N) 25 units SC QPM [facility] Last Admin: 03/11/18 17:35 Dose: Not Given Insulin Human Regular (Humulin R) 0 units SC ACHS [facility] PRN Reason: Protocol Last Admin: 03/11/18 21:00 Dose: Not Given Latanoprost (Xalatan Opht) 1 drop OU HS [facility] Last Admin: 03/11/18 21:03 Dose: 1 drop Levothyroxine Sodium (Synthroid) 25 mcg PO 0630 [facility] Last Admin: 03/11/18 06:26 Dose: 25 mcg Metoclopramide HCl (Reglan) 5 mg PO 0730,1130,1630 [facility] Last Admin: 03/11/18 17:11 Dose: 5 mg Metoprolol Tartrate (Lopressor) 25 mg PO BID [facility] Last Admin: 03/11/18 17:10 Dose: 25 mg Montelukast Sodium (Singulair) 10 mg PO HS [facility] Last Admin: 03/11/18 21:03 Dose: 10 mg Morphine Sulfate (Morphine Immediate Release Tab) 15 mg PO Q4 PRN PRN Reason: Pain scale 4-10 Last Admin: 03/11/18 21:13 Dose: 15 mg Multivitamins/Minerals (Therapeutic-M Tab) 1 tab PO DAILY [facility] Last Admin: 03/11/18 08:47 Dose: 1 tab Mupirocin (Bactroban Ointment) 1 applic TOP 0600,1800 [facility] Last Admin: 03/12/18 05:20 Dose: 1 applic Pregabalin (Lyrica) 50 mg PO HS [facility] Last Admin: 03/11/18 21:13 Dose: 50 mg Fluticasone/Salmeterol (Advair Diskus 250/50) 1 puff IH Q12 [facility] Last Admin: 03/11/18 21:00 Dose: 1 puff Sevelamer Carbonate (Renvela) 1,600 mg PO WM@0800,1200,1700 [facility] Last Admin: 03/11/18 17:11 Dose: 1,600 mg Silver Sulfadiazine (Silvadene 1% 20 Gm) 1 ea TOP 0600 [facility] Last Admin: 03/12/18 05:21 Dose: 1 applic Sodium Chloride ([place] Nasal [place]) 1 sprays HÉCTOR Q2 PRN PRN Reason: nasal congestion. Last Admin: 03/02/18 10:02 Dose: 1 spray Ticagrelor (Brilinta) 90 mg PO BID [facility] Last Admin: 03/11/18 17:09 Dose: 90 mg Trazodone HCl (Desyrel) [address] [facility] Last Admin: 03/11/18 21:02 Dose: 50 mg - Labs Labs: 03/05/18 16:55 03/05/18 16:55 - Head Exam Head Exam: NORMAL INSPECTION - Eye Exam Eye Exam: Normal appearance - ENT Exam ENT Exam: Mucous Membranes Moist - Respiratory Exam Respiratory Exam: Clear to Ausculation Bilateral - Cardiovascular Exam Cardiovascular Exam: REGULAR RHYTHM - GI/Abdominal Exam GI & Abdominal Exam: Soft, Normal Bowel Sounds - Neurological Exam Neurological Exam: Awake, Oriented x3 Assessment and Plan (1) Chronic diarrhea Status: Acute (2) Anemia in CKD (chronic kidney disease) Status: Acute (3) Malabsorption Status: Acute (4) S/P BKA (below knee amputation) Status: Acute (5) CAD (coronary artery disease) Status: Chronic (6) ESRD on hemodialysis Status: Chronic (7) Uncontrolled diabetes mellitus Status: Acute (8) Hypertension Status: Chronic - Assessment and Plan (Free Text) Plan: Cont meds Cont tx Cont PT
--- NOTE | 2018-03-12 05:52 | CP.PCM.PN ---
Subjective - Date & Time of Evaluation Date of Evaluation: 03/08/18 Time of Evaluation: 11:00 - Subjective Subjective: Patient remains well Doing well with PT Has no chest pain. Has less diarrhea now down to 3x a day Objective - Vital Signs/Intake and Output Vital Signs (last 24 hours): Temp Pulse Resp BP Pulse Ox 97.7 F 82 20 113/53 L 97 03/11/18 20:54 03/11/18 20:54 03/11/18 20:54 03/11/18 20:54 03/11/18 20:54 Intake and Output: 03/11/18 03/12/18 18:59 06:59 Intake Total 520 Balance 520 - Medications Medications: Current Medications Albuterol/Ipratropium (Duoneb 3 Mg/0.5 Mg (3 Ml) Ud) 3 ml IH RQ6 PRN PRN Reason: Shortness of Breath Last Admin: 03/04/18 08:35 Dose: 3 ml Alprazolam (Xanax) 0.25 mg PO HS PRN PRN Reason: Anxiety Stop: 03/17/18 14:38 Aspirin (Ecotrin) 81 mg PO DAILY [facility] Last Admin: 03/11/18 08:57 Dose: 81 mg Atorvastatin Calcium (Lipitor) 40 mg PO HS [facility] Last Admin: 03/11/18 21:02 Dose: 40 mg Bacitracin (Bacitracin) 1 ea TOP BID [facility] Last Admin: 03/11/18 17:05 Dose: 1 ea Capsaicin (Trixaicin Cream) 1 applic TOP Q6 PRN PRN Reason: bilateral wrist pain Last Admin: 03/10/18 17:15 Dose: 1 applic Dextrose (Dextrose 50% Inj) 0 ml IV STAT PRN; Protocol PRN Reason: Hypoglycemia Protocol Dextrose (Glutose 15) 0 gm PO ONCE PRN; Protocol PRN Reason: Hypoglycemia Protocol Dimethicone (Proshield Plus Skin Protectant) 1 applic TOP Q8 [facility] Last Admin: 03/12/18 05:21 Dose: 1 applic Diphenhydramine HCl (Benadryl) 25 mg PO HS PRN PRN Reason: Insomnia Last Admin: 03/09/18 21:11 Dose: 25 mg Diphenoxylate HCl/Atropine (Lomotil 0.025-2.5 Mg Tablet) 2 tab PO Q12 [facility] Last Admin: 03/11/18 21:13 Dose: 2 tab Epoetin Sudeep (Procrit) 10,000 unit IV MWF [facility] Last Admin: 03/09/18 15:24 Dose: 10,000 unit Ergocalciferol (Drisdol 50,000 Intl Units Cap) 1 cap PO WED [facility] Fenofibrate (Tricor) 145 mg PO DAILY [facility] Last Admin: 03/11/18 08:47 Dose: 145 mg Glucagon (Glucagen Diagnostic Kit) 0 mg IM STAT PRN; Protocol PRN Reason: Hypoglycemia Protocol Hydralazine HCl (Apresoline) 25 mg PO BID [facility] Last Admin: 03/11/18 17:05 Dose: 25 mg Hydrogen Peroxide (Hydrogen Peroxide 3%) 0 ml TP 0600 [facility] Last Admin: 03/12/18 05:21 Dose: 480 ml Insulin Human NPH (Humulin N) 25 units SC QPM [facility] Last Admin: 03/11/18 17:35 Dose: Not Given Insulin Human Regular (Humulin R) 0 units SC ACHS [facility] PRN Reason: Protocol Last Admin: 03/11/18 21:00 Dose: Not Given Latanoprost (Xalatan Opht) 1 drop OU HS [facility] Last Admin: 03/11/18 21:03 Dose: 1 drop Levothyroxine Sodium (Synthroid) 25 mcg PO 0630 [facility] Last Admin: 03/11/18 06:26 Dose: 25 mcg Metoclopramide HCl (Reglan) 5 mg PO 0730,1130,1630 [facility] Last Admin: 03/11/18 17:11 Dose: 5 mg Metoprolol Tartrate (Lopressor) 25 mg PO BID [facility] Last Admin: 03/11/18 17:10 Dose: 25 mg Montelukast Sodium (Singulair) 10 mg PO HS [facility] Last Admin: 03/11/18 21:03 Dose: 10 mg Morphine Sulfate (Morphine Immediate Release Tab) 15 mg PO Q4 PRN PRN Reason: Pain scale 4-10 Last Admin: 03/11/18 21:13 Dose: 15 mg Multivitamins/Minerals (Therapeutic-M Tab) 1 tab PO DAILY [facility] Last Admin: 03/11/18 08:47 Dose: 1 tab Mupirocin (Bactroban Ointment) 1 applic TOP 0600,1800 [facility] Last Admin: 03/12/18 05:20 Dose: 1 applic Pregabalin (Lyrica) 50 mg PO HS [facility] Last Admin: 03/11/18 21:13 Dose: 50 mg Fluticasone/Salmeterol (Advair Diskus 250/50) 1 puff IH Q12 [facility] Last Admin: 03/11/18 21:00 Dose: 1 puff Sevelamer Carbonate (Renvela) 1,600 mg PO WM@0800,1200,1700 [facility] Last Admin: 03/11/18 17:11 Dose: 1,600 mg Silver Sulfadiazine (Silvadene 1% 20 Gm) 1 ea TOP 0600 [facility] Last Admin: 03/12/18 05:21 Dose: 1 applic Sodium Chloride ([place] Nasal [place]) 1 sprays HÉCTOR Q2 PRN PRN Reason: nasal congestion. Last Admin: 03/02/18 10:02 Dose: 1 spray Ticagrelor (Brilinta) 90 mg PO BID [facility] Last Admin: 03/11/18 17:09 Dose: 90 mg Trazodone HCl (Desyrel) 50 mg PO [facility] Last Admin: 03/11/18 21:02 Dose: 50 mg - Labs Labs: 03/05/18 16:55 03/05/18 16:55 - Head Exam Head Exam: NORMAL INSPECTION - Eye Exam Eye Exam: Normal appearance - Respiratory Exam Respiratory Exam: NORMAL BREATHING PATTERN - Cardiovascular Exam Cardiovascular Exam: REGULAR RHYTHM - GI/Abdominal Exam GI & Abdominal Exam: Normal Bowel Sounds - Neurological Exam Neurological Exam: Awake, Oriented x3 Assessment and Plan (1) Chronic diarrhea Status: Acute (2) Anemia in CKD (chronic kidney disease) Status: Acute (3) Malabsorption Status: Acute (4) S/P BKA (below knee amputation) Status: Acute (5) CAD (coronary artery disease) Status: Chronic (6) ESRD on hemodialysis Status: Chronic (7) Uncontrolled diabetes mellitus Status: Acute (8) Hypertension Status: Chronic - Assessment and Plan (Free Text) Plan: Cont meds Cont tx Cont PT Cont antidiarrheal meds
--- NOTE | 2018-03-12 05:54 | CP.PCM.PN ---
Subjective - Date & Time of Evaluation Date of Evaluation: 03/09/18 Time of Evaluation: 11:00 - Subjective Subjective: Patient is doing well with PT Seen by GI Has no abd pain Had two bm On lomotil Objective - Vital Signs/Intake and Output Vital Signs (last 24 hours): Temp Pulse Resp BP Pulse Ox 97.7 F 82 20 113/53 L 97 03/11/18 20:54 03/11/18 20:54 03/11/18 20:54 03/11/18 20:54 03/11/18 20:54 Intake and Output: 03/11/18 03/12/18 18:59 06:59 Intake Total 520 Balance 520 - Medications Medications: Current Medications Albuterol/Ipratropium (Duoneb 3 Mg/0.5 Mg (3 Ml) Ud) 3 ml IH RQ6 PRN PRN Reason: Shortness of Breath Last Admin: 03/04/18 08:35 Dose: 3 ml Alprazolam (Xanax) 0.25 mg PO HS PRN PRN Reason: Anxiety Stop: 03/17/18 14:38 Aspirin (Ecotrin) 81 mg PO DAILY [facility] Last Admin: 03/11/18 08:57 Dose: 81 mg Atorvastatin Calcium (Lipitor) 40 mg PO HS [facility] Last Admin: 03/11/18 21:02 Dose: 40 mg Bacitracin (Bacitracin) 1 ea TOP BID [facility] Last Admin: 03/11/18 17:05 Dose: 1 ea Capsaicin (Trixaicin Cream) 1 applic TOP Q6 PRN PRN Reason: bilateral wrist pain Last Admin: 03/10/18 17:15 Dose: 1 applic Dextrose (Dextrose 50% Inj) 0 ml IV STAT PRN; Protocol PRN Reason: Hypoglycemia Protocol Dextrose (Glutose 15) 0 gm PO ONCE PRN; Protocol PRN Reason: Hypoglycemia Protocol Dimethicone (Proshield Plus Skin Protectant) 1 applic TOP Q8 [facility] Last Admin: 03/12/18 05:21 Dose: 1 applic Diphenhydramine HCl (Benadryl) 25 mg PO HS PRN PRN Reason: Insomnia Last Admin: 03/09/18 21:11 Dose: 25 mg Diphenoxylate HCl/Atropine (Lomotil 0.025-2.5 Mg Tablet) 2 tab PO Q12 [facility] Last Admin: 03/11/18 21:13 Dose: 2 tab Epoetin Sudeep (Procrit) 10,000 unit IV MWF [facility] Last Admin: 03/09/18 15:24 Dose: 10,000 unit Ergocalciferol (Drisdol 50,000 Intl Units Cap) 1 cap PO WED [facility] Fenofibrate (Tricor) 145 mg PO DAILY [facility] Last Admin: 03/11/18 08:47 Dose: 145 mg Glucagon (Glucagen Diagnostic Kit) 0 mg IM STAT PRN; Protocol PRN Reason: Hypoglycemia Protocol Hydralazine HCl (Apresoline) 25 mg PO BID [facility] Last Admin: 03/11/18 17:05 Dose: 25 mg Hydrogen Peroxide (Hydrogen Peroxide 3%) 0 ml TP 0600 [facility] Last Admin: 03/12/18 05:21 Dose: 480 ml Insulin Human NPH (Humulin N) 25 units SC QPM [facility] Last Admin: 03/11/18 17:35 Dose: Not Given Insulin Human Regular (Humulin R) 0 units SC ACHS [facility] PRN Reason: Protocol Last Admin: 03/11/18 21:00 Dose: Not Given Latanoprost (Xalatan Opht) 1 drop OU HS [facility] Last Admin: 03/11/18 21:03 Dose: 1 drop Levothyroxine Sodium (Synthroid) 25 mcg PO 0630 [facility] Last Admin: 03/11/18 06:26 Dose: 25 mcg Metoclopramide HCl (Reglan) 5 mg PO 0730,1130,1630 [facility] Last Admin: 03/11/18 17:11 Dose: 5 mg Metoprolol Tartrate (Lopressor) 25 mg PO BID [facility] Last Admin: 03/11/18 17:10 Dose: 25 mg Montelukast Sodium (Singulair) 10 mg PO HS [facility] Last Admin: 03/11/18 21:03 Dose: 10 mg Morphine Sulfate (Morphine Immediate Release Tab) 15 mg PO Q4 PRN PRN Reason: Pain scale 4-10 Last Admin: 03/11/18 21:13 Dose: 15 mg Multivitamins/Minerals (Therapeutic-M Tab) 1 tab PO DAILY [facility] Last Admin: 03/11/18 08:47 Dose: 1 tab Mupirocin (Bactroban Ointment) 1 applic TOP 0600,1800 [facility] Last Admin: 03/12/18 05:20 Dose: 1 applic Pregabalin (Lyrica) 50 mg PO HS [facility] Last Admin: 03/11/18 21:13 Dose: 50 mg Fluticasone/Salmeterol (Advair Diskus 250/50) 1 puff IH Q12 [facility] Last Admin: 03/11/18 21:00 Dose: 1 puff Sevelamer Carbonate (Renvela) 1,600 mg PO WM@0800,1200,1700 [facility] Last Admin: 03/11/18 17:11 Dose: 1,600 mg Silver Sulfadiazine (Silvadene 1% 20 Gm) 1 ea TOP 0600 [facility] Last Admin: 03/12/18 05:21 Dose: 1 applic Sodium Chloride ([place] Nasal [place]) 1 sprays HÉCTOR Q2 PRN PRN Reason: nasal congestion. Last Admin: 03/02/18 10:02 Dose: 1 spray Ticagrelor (Brilinta) 90 mg PO BID [facility] Last Admin: 03/11/18 17:09 Dose: 90 mg Trazodone HCl (Desyrel) 50 mg PO [facility] Last Admin: 03/11/18 21:02 Dose: 50 mg - Labs Labs: 03/05/18 16:55 03/05/18 16:55 - Head Exam Head Exam: NORMAL INSPECTION - Eye Exam Eye Exam: Normal appearance - ENT Exam ENT Exam: Mucous Membranes Moist - Respiratory Exam Respiratory Exam: Clear to Ausculation Bilateral - Cardiovascular Exam Cardiovascular Exam: REGULAR RHYTHM - GI/Abdominal Exam GI & Abdominal Exam: Normal Bowel Sounds - Neurological Exam Neurological Exam: Awake, Oriented x3 - Psychiatric Exam Psychiatric exam: Normal Mood Assessment and Plan (1) Chronic diarrhea Status: Acute (2) Anemia in CKD (chronic kidney disease) Status: Acute (3) Malabsorption Status: Acute (4) S/P BKA (below knee amputation) Status: Acute (5) CAD (coronary artery disease) Status: Chronic (6) ESRD on hemodialysis Status: Chronic (7) Uncontrolled diabetes mellitus Status: Acute (8) Hypertension Status: Chronic - Assessment and Plan (Free Text) Plan: Cont meds Cont PT Cont meds Lomotil
--- NOTE | 2018-03-12 05:57 | CP.PCM.PN ---
Subjective - Date & Time of Evaluation Date of Evaluation: 03/10/18 Time of Evaluation: 11:00 - Subjective Subjective: Patient remains stable Has no chest pain or SOB Has no fever. Objective - Vital Signs/Intake and Output Vital Signs (last 24 hours): Temp Pulse Resp BP Pulse Ox 97.7 F 82 20 113/53 L 97 03/11/18 20:54 03/11/18 20:54 03/11/18 20:54 03/11/18 20:54 03/11/18 20:54 Intake and Output: 03/11/18 03/12/18 18:59 06:59 Intake Total 520 Balance 520 - Medications Medications: Current Medications Albuterol/Ipratropium (Duoneb 3 Mg/0.5 Mg (3 Ml) Ud) 3 ml IH RQ6 PRN PRN Reason: Shortness of Breath Last Admin: 03/04/18 08:35 Dose: 3 ml Alprazolam (Xanax) 0.25 mg PO HS PRN PRN Reason: Anxiety Stop: 03/17/18 14:38 Aspirin (Ecotrin) 81 mg PO DAILY [facility] Last Admin: 03/11/18 08:57 Dose: 81 mg Atorvastatin Calcium (Lipitor) 40 mg PO HS [facility] Last Admin: 03/11/18 21:02 Dose: 40 mg Bacitracin (Bacitracin) 1 ea TOP BID [facility] Last Admin: 03/11/18 17:05 Dose: 1 ea Capsaicin (Trixaicin Cream) 1 applic TOP Q6 PRN PRN Reason: bilateral wrist pain Last Admin: 03/10/18 17:15 Dose: 1 applic Dextrose (Dextrose 50% Inj) 0 ml IV STAT PRN; Protocol PRN Reason: Hypoglycemia Protocol Dextrose (Glutose 15) 0 gm PO ONCE PRN; Protocol PRN Reason: Hypoglycemia Protocol Dimethicone (Proshield Plus Skin Protectant) 1 applic TOP Q8 [facility] Last Admin: 03/12/18 05:21 Dose: 1 applic Diphenhydramine HCl (Benadryl) 25 mg PO HS PRN PRN Reason: Insomnia Last Admin: 03/09/18 21:11 Dose: 25 mg Diphenoxylate HCl/Atropine (Lomotil 0.025-2.5 Mg Tablet) 2 tab PO Q12 [facility] Last Admin: 03/11/18 21:13 Dose: 2 tab Epoetin Sudeep (Procrit) 10,000 unit IV MWF [facility] Last Admin: 03/09/18 15:24 Dose: 10,000 unit Ergocalciferol (Drisdol 50,000 Intl Units Cap) 1 cap PO WED [facility] Fenofibrate (Tricor) 145 mg PO DAILY [facility] Last Admin: 03/11/18 08:47 Dose: 145 mg Glucagon (Glucagen Diagnostic Kit) 0 mg IM STAT PRN; Protocol PRN Reason: Hypoglycemia Protocol Hydralazine HCl (Apresoline) 25 mg PO BID [facility] Last Admin: 03/11/18 17:05 Dose: 25 mg Hydrogen Peroxide (Hydrogen Peroxide 3%) 0 ml TP 0600 [facility] Last Admin: 03/12/18 05:21 Dose: 480 ml Insulin Human NPH (Humulin N) 25 units SC QPM [facility] Last Admin: 03/11/18 17:35 Dose: Not Given Insulin Human Regular (Humulin R) 0 units SC ACHS [facility] PRN Reason: Protocol Last Admin: 03/11/18 21:00 Dose: Not Given Latanoprost (Xalatan Opht) 1 drop OU HS [facility] Last Admin: 03/11/18 21:03 Dose: 1 drop Levothyroxine Sodium (Synthroid) 25 mcg PO 0630 [facility] Last Admin: 03/11/18 06:26 Dose: 25 mcg Metoclopramide HCl (Reglan) 5 mg PO 0730,1130,1630 [facility] Last Admin: 03/11/18 17:11 Dose: 5 mg Metoprolol Tartrate (Lopressor) 25 mg PO BID [facility] Last Admin: 03/11/18 17:10 Dose: 25 mg Montelukast Sodium (Singulair) 10 mg PO HS [facility] Last Admin: 03/11/18 21:03 Dose: 10 mg Morphine Sulfate (Morphine Immediate Release Tab) 15 mg PO Q4 PRN PRN Reason: Pain scale 4-10 Last Admin: 03/11/18 21:13 Dose: 15 mg Multivitamins/Minerals (Therapeutic-M Tab) 1 tab PO DAILY [facility] Last Admin: 03/11/18 08:47 Dose: 1 tab Mupirocin (Bactroban Ointment) 1 applic TOP 0600,1800 [facility] Last Admin: 03/12/18 05:20 Dose: 1 applic Pregabalin (Lyrica) 50 mg PO HS [facility] Last Admin: 03/11/18 21:13 Dose: 50 mg Fluticasone/Salmeterol (Advair Diskus 250/50) 1 puff IH Q12 [facility] Last Admin: 03/11/18 21:00 Dose: 1 puff Sevelamer Carbonate (Renvela) 1,600 mg PO WM@0800,1200,1700 [facility] Last Admin: 03/11/18 17:11 Dose: 1,600 mg Silver Sulfadiazine (Silvadene 1% 20 Gm) 1 ea TOP 0600 [facility] Last Admin: 03/12/18 05:21 Dose: 1 applic Sodium Chloride ([place] Nasal [place]) 1 sprays HÉCTOR Q2 PRN PRN Reason: nasal congestion. Last Admin: 03/02/18 10:02 Dose: 1 spray Ticagrelor (Brilinta) 90 mg PO BID [facility] Last Admin: 03/11/18 17:09 Dose: 90 mg Trazodone HCl (Desyrel) 50 mg PO [facility] Last Admin: 03/11/18 21:02 Dose: 50 mg - Labs Labs: 03/05/18 16:55 03/05/18 16:55 - Head Exam Head Exam: NORMAL INSPECTION - Eye Exam Eye Exam: Normal appearance - ENT Exam ENT Exam: Mucous Membranes Moist - Respiratory Exam Respiratory Exam: Clear to Ausculation Bilateral - Cardiovascular Exam Cardiovascular Exam: REGULAR RHYTHM - GI/Abdominal Exam GI & Abdominal Exam: Normal Bowel Sounds - Neurological Exam Neurological Exam: Awake, Oriented x3 - Psychiatric Exam Psychiatric exam: Normal Mood Assessment and Plan (1) Chronic diarrhea Status: Acute (2) Anemia in CKD (chronic kidney disease) Status: Acute (3) Malabsorption Status: Acute (4) S/P BKA (below knee amputation) Status: Acute (5) CAD (coronary artery disease) Status: Chronic (6) ESRD on hemodialysis Status: Chronic (7) Uncontrolled diabetes mellitus Status: Acute (8) Hypertension Status: Chronic - Assessment and Plan (Free Text) Plan: Cont meds Cont tx Cont antidiarrheal Cont PT.
[2018-03-12] MEDS: Levothyroxine 25 MCG TAB PO SCH (06:32)
[2018-03-12] MEDS: Insulin Regular 100 units/ml SC SCH ×4 (06:58→22:38)
[2018-03-12] MEDS: Fluticasone-Salmeterol 250-50mcg Diskus IH SCH (08:12)
[2018-03-12] MEDS: Atropine-Diphenoxylate 0.025-2.5 mg Tab PO SCH (08:12)
[2018-03-12] MEDS: Bacitracin 500 Units/gm Oint Foilpak UD TOP SCH ×2 (08:19→17:36)
[2018-03-12] MEDS: SEVELAMER CARBONATE 800 MG PO SCH ×2 (08:19→12:11)
[2018-03-12] MEDS: Multivitamin With Minerals Tab PO SCH (08:19)
--- NOTE | 2018-03-12 12:01 | CP.PCM.PN ---
Subjective - Date & Time of Evaluation Date of Evaluation: 03/12/18 Time of Evaluation: 11:10 - Subjective Subjective: GI progress note for Dr. Hernandez PT seen and examined in TCU this AM. Patient denies any diarrhea with only 1 bowel movement today, no blood, soft consistency. Patient denies any abdominal pain but states that he has vomited after his breakfast. Patient denies any blood in the emesis. He believes it may be due to the medication he takes with meals. Nausea resolved with reglan Objective - Vital Signs/Intake and Output Vital Signs (last 24 hours): Temp Pulse Resp BP Pulse Ox 97.0 F L 62 18 103/44 L 99 03/12/18 11:30 03/12/18 11:30 03/12/18 11:30 03/12/18 11:30 03/12/18 08:44 Intake and Output: 03/12/18 03/12/18 06:59 18:59 Intake Total 240 Output Total 50 Balance 190 - Medications Medications: Current Medications Albuterol/Ipratropium (Duoneb 3 Mg/0.5 Mg (3 Ml) Ud) 3 ml IH RQ6 PRN PRN Reason: Shortness of Breath Last Admin: 03/04/18 08:35 Dose: 3 ml Alprazolam (Xanax) 0.25 mg PO HS PRN PRN Reason: Anxiety Stop: 03/17/18 14:38 Aspirin (Ecotrin) 81 mg PO DAILY [facility] Last Admin: 03/12/18 08:21 Dose: Not Given Atorvastatin Calcium (Lipitor) 40 mg PO HS [facility] Last Admin: 03/11/18 21:02 Dose: 40 mg Bacitracin (Bacitracin) 1 ea TOP BID [facility] Last Admin: 03/12/18 08:19 Dose: 1 ea Capsaicin (Trixaicin Cream) 1 applic TOP Q6 PRN PRN Reason: bilateral wrist pain Last Admin: 03/10/18 17:15 Dose: 1 applic Dextrose (Dextrose 50% Inj) 0 ml IV STAT PRN; Protocol PRN Reason: Hypoglycemia Protocol Dextrose (Glutose 15) 0 gm PO ONCE PRN; Protocol PRN Reason: Hypoglycemia Protocol Dimethicone (Proshield Plus Skin Protectant) 1 applic TOP Q8 [facility] Last Admin: 03/12/18 05:21 Dose: 1 applic Diphenhydramine HCl (Benadryl) 25 mg PO HS PRN PRN Reason: Insomnia Last Admin: 03/09/18 21:11 Dose: 25 mg Diphenoxylate HCl/Atropine (Lomotil 0.025-2.5 Mg Tablet) 2 tab PO Q12 [facility] Last Admin: 03/12/18 08:12 Dose: 2 tab Epoetin Sudeep (Procrit) 10,000 unit IV MWF [facility] Last Admin: 03/09/18 15:24 Dose: 10,000 unit Ergocalciferol (Drisdol 50,000 Intl Units Cap) 1 cap PO WED [facility] Fenofibrate (Tricor) 145 mg PO DAILY [facility] Last Admin: 03/12/18 08:19 Dose: 145 mg Glucagon (Glucagen Diagnostic Kit) 0 mg IM STAT PRN; Protocol PRN Reason: Hypoglycemia Protocol Hydralazine HCl (Apresoline) 25 mg PO BID [facility] Last Admin: 03/12/18 08:20 Dose: Not Given Hydrogen Peroxide (Hydrogen Peroxide 3%) 0 ml TP 0600 [facility] Last Admin: 03/12/18 05:21 Dose: 480 ml Insulin Human NPH (Humulin N) 25 units SC QPM [facility] Last Admin: 03/11/18 17:35 Dose: Not Given Insulin Human Regular (Humulin R) 0 units SC ACHS [facility] PRN Reason: Protocol Last Admin: 03/12/18 06:58 Dose: Not Given Latanoprost (Xalatan Opht) 1 drop OU HS [facility] Last Admin: 03/11/18 21:03 Dose: 1 drop Levothyroxine Sodium (Synthroid) 25 mcg PO 0630 [facility] Last Admin: 03/12/18 06:32 Dose: 25 mcg Metoprolol Tartrate (Lopressor) 25 mg PO BID [facility] Last Admin: 03/12/18 08:21 Dose: Not Given Montelukast Sodium (Singulair) 10 mg PO HS [facility] Last Admin: 03/11/18 21:03 Dose: 10 mg Morphine Sulfate (Morphine Immediate Release Tab) 15 mg PO Q4 PRN PRN Reason: Pain scale 4-10 Last Admin: 03/11/18 21:13 Dose: 15 mg Multivitamins/Minerals (Therapeutic-M Tab) 1 tab PO DAILY [facility] Last Admin: 03/12/18 08:19 Dose: 1 tab Mupirocin (Bactroban Ointment) 1 applic TOP 0600,1800 [facility] Last Admin: 03/12/18 05:20 Dose: 1 applic Ondansetron HCl (Zofran Odt) 4 mg PO Q8H [facility] Pregabalin (Lyrica) 50 mg PO HS [facility] Last Admin: 03/11/18 21:13 Dose: 50 mg Fluticasone/Salmeterol (Advair Diskus 250/50) 1 puff IH Q12 [facility] Last Admin: 03/12/18 08:12 Dose: 1 puff Sevelamer Carbonate (Renvela) 1,600 mg PO WM@0800,1200,1700 [facility] Last Admin: 03/12/18 08:19 Dose: 1,600 mg Silver Sulfadiazine (Silvadene 1% 20 Gm) 1 ea TOP 0600 [facility] Last Admin: 03/12/18 05:21 Dose: 1 applic Sodium Chloride ([place] Nasal [place]) 1 sprays HÉCTOR Q2 PRN PRN Reason: nasal congestion. Last Admin: 03/02/18 10:02 Dose: 1 spray Ticagrelor (Brilinta) 90 mg PO BID [facility] Last Admin: 03/12/18 08:21 Dose: Not Given Trazodone HCl (Desyrel) 50 mg PO HS [facility] Last Admin: 03/11/18 21:02 Dose: 50 mg - Labs Labs: 03/05/18 16:55 03/05/18 16:55 - Constitutional Appears: Well, Non-toxic, No Acute Distress - Head Exam Head Exam: ATRAUMATIC, NORMOCEPHALIC - Eye Exam Eye Exam: Normal appearance. absent: Conjunctival injection, Scleral icterus - ENT Exam ENT Exam: Mucous Membranes Moist, Normal Oropharynx - Respiratory Exam Respiratory Exam: NORMAL BREATHING PATTERN. absent: Accessory Muscle Use, Respiratory Distress - GI/Abdominal Exam GI & Abdominal Exam: Soft. absent: Distended, Tenderness - Neurological Exam Neurological Exam: Alert, Awake, Oriented x3 - Psychiatric Exam Psychiatric exam: Normal Affect, Normal Mood - Skin Skin Exam: Dry, Intact, Normal Color, Warm Assessment and Plan - Assessment and Plan (Free Text) Assessment: 52m with chronic diarrhea, resolved, and emesis with meals Plan: Obtain KUB Change Lomotil from BID to daily Continue PRN nausea medication Continue to hold protonix Discussed with Dr. Mary Haro, PGY2
--- NOTE | 2018-03-12 13:13 | PSY.TMCNF ---
Nursing - Vital Signs Vital Signs (Last 8 hours): Vital Signs 03/12/18 03/12/18 03/12/18 07:52 08:44 11:30 Temperature 97.0 F L 97.0 F L Pulse Rate 62 64 62 Respiratory 18 18 Rate Blood Pressure 103/44 L 103/44 L O2 Sat by Pulse 100 99 Oximetry Pain: 0 - Precautions: Precautions: Fall Prevention, Pressure Ulcer - Medications/Other Issues Comment: (+) NAUSEA AND VOMITING. MD GAINES, CHANGED REGLAN TO ZOFRAN - Consults Comment: DR. BARTH, DR. MASCORRO,DR. ALCANTARA, DR. BURCIAGA - Skin Incision Site: Right BKA stump Dressing Status: Clean, Dry, Intact Incision: Lizzy Intact, No Drainage Noted Incision Line Treatment: (+) DRY SCAB ALONG I/L , NO DRAINAGE. CLEANSED WITH NSS , COVERED BY DRY DRESSING AND WRAPPED WITH KINGSLEY AND VICKI BANDAGE. - Wound Sacrum Wound Stage: STAGE II Wound Shape: Oval Wound Edges: Attached Wound Length: 1 Wound Width: 0.5 Wound Bed Greatest Portion: Pale [employer] Periwound: Intact Wound Drainage Odor: None/Absent Wound Dressing Status: Changed Dressing Changed: Yes Wound Primary Dressing Type: Gauze Pads Comment: dressing changed by wound care nurse silvadene with gauze and tegaderm - Toileting Toileting: Dependent - Bladder Management Frequency of Accidents: PT IS ANURIC AND IS ON DIALYSIS - Bowel Management Bowel Pattern: Incontinent Bowel Management: Dependent Frequency of Accidents: >5 - Transfers Transfers: Dependent - ADL's ADL's: Maximal Assistance - Pain Management Comments: MORPHINE IR PRN - Patient/Family Teaching Comments: CARE POST BKA, STUMP CARE AND SAFETY PRECAUTIONS - Goals/Time Frame Comments: PER MULTIDISCIPLINARY CARE PLAN AND GOALS - Provider Provider: EDMUND VICKN RN CRRN Physical Therapy - Bed Mobility Bed Mobility: Moderate Assistance Comment: mod A from flat surface. Min A from elevated hospital bed - Transfers Wheelchair to Mat: Minimal Assistance Sit to Stand: Maximum Assistance Comment: WC < > mat min A with transfer board - Ambulation Level of Assistance: Not Tested Comment: WC mobility 100 ft with supervision - Stair Negotiation Stairs: Level of Assistance: Not Tested - Standing Balance Static Stand: Minimal Assistance Comment: static stand min A with RW - Pain Comment: occasional R LE phantom limb pain - Insight/Carryover Insight/Carryover: Good - Patient/Family Education Comment: desensitization techniques, S & S of infection, safety, d/c recommendations - Assessment/Plan Assessment: Pt participating in PT tx sessions focusing on BLE strengthening and ROM exercises, functional mobility training. Pt currently requires min/mod A for bed moblity, min A for transfers using transfer board, max A for sit < > stand transfers with RW, S for WC propulsion. Pt will continue to benefit from skilled PT interventions to address deficits, reduce caregiver burden, and maximize functional independence. Recommend caregiver training prior to d/c. - Goals Timeframe: 2 weeks Goals: SIt < > supine mod I. WC < > bed transfers using transfer board mod I. Sit < > stand transfers CGA. -Pt will propel WC 200 ft on even/uneven surfaces mod I - Provider Therapist: Catherine Rees PT DPT License Number: [id number] Occupational Therapy - Arousal/Attention/Orientation Patient Orientation: Person, Place, Time, Appropriate to Age, Appropriate to Situation - ADL/IADL Self Feeding: Set-up Help Grooming: Set-up Help Dressing-Upper Extremity: Supervision Dressing-Lower Extremity: Minimal Assistance - Sitting Balance Static Sitting: Supervision Dynamic Sitting: Contact Guard Assist - Transfers Wheelchair to Bed Transfers: Minimal Assistance, Moderate Assistance Toilet Transfers: Maximum Assistance - Wheelchair Management Level of Assistance: Supervision - Upper Extremity Status Right Upper Extremity Comment: WFLs Left Upper Extremity Comment: WFLs - Pain Comment: occasional R LE phantom limb pain - Insight/Carryover Insight/Carryover: Good - Patient/Family Education Comment: desensitization techniques, S & S of infection, safety, d/c recommendations - Assessment/Plan Assessment: Pt participating in PT tx sessions focusing on BLE strengthening and ROM exercises, functional mobility training. Pt currently requires min/mod A for bed moblity, min A for transfers using transfer board, max A for sit < > stand transfers with RW, S for WC propulsion. Pt will continue to benefit from skilled PT interventions to address deficits, reduce caregiver burden, and maximize functional independence. Recommend caregiver training prior to d/c. - Goals Timeframe: 2 weeks Goals: SIt < > supine mod I. WC < > bed transfers using transfer board mod I. Sit < > stand transfers CGA. -Pt will propel WC 200 ft on even/uneven surfaces mod I - Provider Therapist: Karma Bearden OTR/L License Number: [id number] Speech Therapy - Plan Assessment: Pt participating in PT tx sessions focusing on BLE strengthening and ROM exercises, functional mobility training. Pt currently requires min/mod A for bed moblity, min A for transfers using transfer board, max A for sit < > stand transfers with RW, S for WC propulsion. Pt will continue to benefit from skilled PT interventions to address deficits, reduce caregiver burden, and maximize functional independence. Recommend caregiver training prior to d/c. Recreational Therapy - Participation Participation: Participates in Individual and/or Group Sessions - Attendance Attendance: 3-5 times per week - Activities Leisure Activities: Crafts - Socialization Level of Socialization: Initiates/interacts freely with care givers and peer - Diversional Time Diversional Time: arts and crafts-painting, coloring - Assessment Assessment/Plan: Pt participating in PT tx sessions focusing on BLE strengthening and ROM exercises, functional mobility training. Pt currently requires min/mod A for bed moblity, min A for transfers using transfer board, max A for sit < > stand transfers with RW, S for WC propulsion. Pt will continue to benefit from skilled PT interventions to address deficits, reduce caregiver burden, and maximize functional independence. Recommend caregiver training prior to d/c. - Provider Therapist: Keturah Santillan, [employer] #[id number] Nutrition - Current Diet Current Diet/ Supplement/ Feedings: Moderate consistent CHO heart healthy renal dialysis no pork. prostat sugar free 30 ml 2 per day - Appetite Percent Meal Consumed: 50-74% - Comments Comments: CARE POST BKA, STUMP CARE AND SAFETY PRECAUTIONS - Assessment/Goals/Time Frame Assessment/Goals/Time Frame: (+) NAUSEA AND VOMITING. AWARE, CHANGED REGLAN TO ZOFRAN - Provider Provider: Nydia Fine RD Case Management - Psychosocial Assessment Support Systems: Maricel Stubbs (mother)- [phone]. Clovis Stubbs (child)- [phone] Psychological Interventions/Needs: Patient is alert and oriented x3 and able to verbalize needs. Discharge Concerns: Patient lives alone and may require assistance with dressing changes at surgical site. Patient/Family Meeting: CM met with patient and rehab team Intervention/Goal/Outcome:: 1. Goal: Intermittent supervision overall. 2. Plan: Home vs [facility] dependent on progress, CM attempted to contact patient's homemaker [employer] regarding availibility for caregiver training. 3. DME needs. 4. f/u appts. 5. emotional support. 6. tentative discharge date: 03/17/2018. - Discharge Plan Discharge Plan: Home with services, Subacute care - Provider Provider: ADDI Chapman, [facility] License Number: [id number] Rehabilitation Plan - Treatment Plan Treatment Plan: Physical Therapy, Occupational Therapy, Dietary, Patient/Family Education - Recommendation Recommendation: Physical Therapy, Occupational Therapy, Dietary, Patient/Family Education - Discharge Plan Discharge to: Home (DC 1st)
--- NOTE | 2018-03-12 13:44 | CP.PCM.PN ---
Subjective - Date & Time of Evaluation Date of Evaluation: 03/12/18 Time of Evaluation: 12:00 - Subjective Subjective: no acute complaints, less numbness of the face , tongue Objective - Vital Signs/Intake and Output Vital Signs (last 24 hours): Temp Pulse Resp BP Pulse Ox 97.0 F L 62 18 103/44 L 99 03/12/18 11:30 03/12/18 11:30 03/12/18 11:30 03/12/18 11:30 03/12/18 08:44 Intake and Output: 03/12/18 03/12/18 06:59 18:59 Intake Total 240 Output Total 50 Balance 190 - Medications Medications: Current Medications Albuterol/Ipratropium (Duoneb 3 Mg/0.5 Mg (3 Ml) Ud) 3 ml IH RQ6 PRN PRN Reason: Shortness of Breath Last Admin: 03/04/18 08:35 Dose: 3 ml Alprazolam (Xanax) 0.25 mg PO HS PRN PRN Reason: Anxiety Stop: 03/17/18 14:38 Aspirin (Ecotrin) 81 mg PO DAILY [facility] Last Admin: 03/12/18 08:21 Dose: Not Given Atorvastatin Calcium (Lipitor) 40 mg PO HS [facility] Last Admin: 03/11/18 21:02 Dose: 40 mg Bacitracin (Bacitracin) 1 ea TOP BID [facility] Last Admin: 03/12/18 08:19 Dose: 1 ea Capsaicin (Trixaicin Cream) 1 applic TOP Q6 PRN PRN Reason: bilateral wrist pain Last Admin: 03/10/18 17:15 Dose: 1 applic Dextrose (Dextrose 50% Inj) 0 ml IV STAT PRN; Protocol PRN Reason: Hypoglycemia Protocol Dextrose (Glutose 15) 0 gm PO ONCE PRN; Protocol PRN Reason: Hypoglycemia Protocol Dimethicone (Proshield Plus Skin Protectant) 1 applic TOP Q8 [facility] Last Admin: 03/12/18 05:21 Dose: 1 applic Diphenhydramine HCl (Benadryl) 25 mg PO HS PRN PRN Reason: Insomnia Last Admin: 03/09/18 21:11 Dose: 25 mg Diphenoxylate HCl/Atropine (Lomotil 0.025-2.5 Mg Tablet) 2 tab PO Q12 [facility] Last Admin: 03/12/18 08:12 Dose: 2 tab Epoetin Sudeep (Procrit) 10,000 unit IV MWF [facility] Last Admin: 03/09/18 15:24 Dose: 10,000 unit Ergocalciferol (Drisdol 50,000 Intl Units Cap) 1 cap PO WED [facility] Fenofibrate (Tricor) 145 mg PO DAILY [facility] Last Admin: 03/12/18 08:19 Dose: 145 mg Glucagon (Glucagen Diagnostic Kit) 0 mg IM STAT PRN; Protocol PRN Reason: Hypoglycemia Protocol Hydralazine HCl (Apresoline) 25 mg PO BID [facility] Last Admin: 03/12/18 08:20 Dose: Not Given Hydrogen Peroxide (Hydrogen Peroxide 3%) 0 ml TP 0600 [facility] Last Admin: 03/12/18 05:21 Dose: 480 ml Insulin Human NPH (Humulin N) 25 units SC QPM [facility] Last Admin: 03/11/18 17:35 Dose: Not Given Insulin Human Regular (Humulin R) 0 units SC ACHS [facility] PRN Reason: Protocol Last Admin: 03/12/18 12:08 Dose: 4 units Latanoprost (Xalatan Opht) 1 drop OU [facility] Last Admin: 03/11/18 21:03 Dose: 1 drop Levothyroxine Sodium (Synthroid) 25 mcg PO 0630 [facility] Last Admin: 03/12/18 06:32 Dose: 25 mcg Metoprolol Tartrate (Lopressor) 25 mg PO BID [facility] Last Admin: 03/12/18 08:21 Dose: Not Given Montelukast Sodium (Singulair) 10 mg PO [facility] Last Admin: 03/11/18 21:03 Dose: 10 mg Morphine Sulfate (Morphine Immediate Release Tab) 15 mg PO Q4 PRN PRN Reason: Pain scale 4-10 Last Admin: 03/11/18 21:13 Dose: 15 mg Multivitamins/Minerals (Therapeutic-M Tab) 1 tab PO DAILY [facility] Last Admin: 03/12/18 08:19 Dose: 1 tab Mupirocin (Bactroban Ointment) 1 applic TOP 0600,1800 [facility] Last Admin: 03/12/18 05:20 Dose: 1 applic Ondansetron HCl (Zofran Odt) 4 mg PO Q8H [facility] Last Admin: 03/12/18 08:45 Dose: 4 mg Pregabalin (Lyrica) 50 mg PO [facility] Last Admin: 03/11/18 21:13 Dose: 50 mg Fluticasone/Salmeterol (Advair Diskus 250/50) 1 puff IH Q12 [facility] Last Admin: 03/12/18 08:12 Dose: 1 puff Sevelamer Carbonate (Renvela) 1,600 mg PO WM@0800,1200,1700 [facility] Last Admin: 03/12/18 12:11 Dose: 1,600 mg Silver Sulfadiazine (Silvadene 1% 20 Gm) 1 ea TOP 0600 [facility] Last Admin: 03/12/18 05:21 Dose: 1 applic Sodium Chloride ([place] Nasal [place]) 1 sprays HÉCTOR Q2 PRN PRN Reason: nasal congestion. Last Admin: 03/02/18 10:02 Dose: 1 spray Ticagrelor (Brilinta) 90 mg PO BID [facility] Last Admin: 03/12/18 08:21 Dose: Not Given Trazodone HCl (Desyrel) 50 mg PO [facility] Last Admin: 03/11/18 21:02 Dose: 50 mg - Labs Labs: 03/05/18 16:55 03/05/18 16:55 - Head Exam Head Exam: ATRAUMATIC, NORMAL INSPECTION, NORMOCEPHALIC - Eye Exam Eye Exam: EOMI, Normal appearance, PERRL Pupil Exam: NORMAL ACCOMODATION - ENT Exam ENT Exam: Mucous Membranes Moist, Normal Exam - Neck Exam Neck Exam: Full ROM, Normal Inspection - Respiratory Exam Respiratory Exam: Clear to Ausculation Bilateral, NORMAL BREATHING PATTERN - Cardiovascular Exam Cardiovascular Exam: REGULAR RHYTHM - GI/Abdominal Exam GI & Abdominal Exam: Soft, Normal Bowel Sounds - Rectal Exam Rectal Exam: NORMAL INSPECTION - Exam External exam: NORMAL EXTERNAL EXAM - Extremities Exam Extremities Exam: Full ROM, Normal Capillary Refill, Normal Inspection - Back Exam Back Exam: NORMAL INSPECTION - Neurological Exam Neurological Exam: Alert, Awake Neuro motor strength exam: Right Lower Extremity: 3 (below knee amputation) - Psychiatric Exam Psychiatric exam: Normal Mood - Skin Skin Exam: Dry Assessment and Plan (1) Anemia in CKD (chronic kidney disease) Status: Acute (2) Chronic diarrhea Status: Acute (3) Diarrhea Status: Acute (4) Malabsorption Status: Acute (5) S/P BKA (below knee amputation) Assessment & Plan: Dc for [place] discussed with patient status post team conference, needs hospital bed, Moderate assist for bed mobility Status: Acute (6) CAD (coronary artery disease) Status: Chronic (7) Chronic kidney disease-mineral and bone disorder Status: Chronic (8) ESRD on hemodialysis Status: Chronic
--- NOTE | 2018-03-12 13:50 | CP.PCM.PN ---
Subjective - Date & Time of Evaluation Date of Evaluation: 03/10/18 Time of Evaluation: 11:00 - Subjective Subjective: no acute stump pain Objective - Vital Signs/Intake and Output Vital Signs (last 24 hours): Temp Pulse Resp BP Pulse Ox 97.0 F L 62 18 103/44 L 99 03/12/18 11:30 03/12/18 11:30 03/12/18 11:30 03/12/18 11:30 03/12/18 08:44 Intake and Output: 03/12/18 03/12/18 06:59 18:59 Intake Total 240 Output Total 50 Balance 190 - Medications Medications: Current Medications Albuterol/Ipratropium (Duoneb 3 Mg/0.5 Mg (3 Ml) Ud) 3 ml IH RQ6 PRN PRN Reason: Shortness of Breath Last Admin: 03/04/18 08:35 Dose: 3 ml Alprazolam (Xanax) 0.25 mg PO HS PRN PRN Reason: Anxiety Stop: 03/17/18 14:38 Aspirin (Ecotrin) 81 mg PO DAILY [facility] Last Admin: 03/12/18 08:21 Dose: Not Given Atorvastatin Calcium (Lipitor) 40 mg PO HS [facility] Last Admin: 03/11/18 21:02 Dose: 40 mg Bacitracin (Bacitracin) 1 ea TOP BID [facility] Last Admin: 03/12/18 08:19 Dose: 1 ea Capsaicin (Trixaicin Cream) 1 applic TOP Q6 PRN PRN Reason: bilateral wrist pain Last Admin: 03/10/18 17:15 Dose: 1 applic Dextrose (Dextrose 50% Inj) 0 ml IV STAT PRN; Protocol PRN Reason: Hypoglycemia Protocol Dextrose (Glutose 15) 0 gm PO ONCE PRN; Protocol PRN Reason: Hypoglycemia Protocol Dimethicone (Proshield Plus Skin Protectant) 1 applic TOP Q8 [facility] Last Admin: 03/12/18 05:21 Dose: 1 applic Diphenhydramine HCl (Benadryl) 25 mg PO HS PRN PRN Reason: Insomnia Last Admin: 03/09/18 21:11 Dose: 25 mg Diphenoxylate HCl/Atropine (Lomotil 0.025-2.5 Mg Tablet) 2 tab PO Q12 [facility] Last Admin: 03/12/18 08:12 Dose: 2 tab Epoetin Sudeep (Procrit) 10,000 unit IV MWF [facility] Last Admin: 03/09/18 15:24 Dose: 10,000 unit Ergocalciferol (Drisdol 50,000 Intl Units Cap) 1 cap PO WED [facility] Fenofibrate (Tricor) 145 mg PO DAILY [facility] Last Admin: 03/12/18 08:19 Dose: 145 mg Glucagon (Glucagen Diagnostic Kit) 0 mg IM STAT PRN; Protocol PRN Reason: Hypoglycemia Protocol Hydralazine HCl (Apresoline) 25 mg PO BID [facility] Last Admin: 03/12/18 08:20 Dose: Not Given Hydrogen Peroxide (Hydrogen Peroxide 3%) 0 ml TP 0600 [facility] Last Admin: 03/12/18 05:21 Dose: 480 ml Insulin Human NPH (Humulin N) 25 units SC QPM [facility] Last Admin: 03/11/18 17:35 Dose: Not Given Insulin Human Regular (Humulin R) 0 units SC ACHS [facility] PRN Reason: Protocol Last Admin: 03/12/18 12:08 Dose: 4 units Latanoprost (Xalatan Opht) 1 drop OU [facility] Last Admin: 03/11/18 21:03 Dose: 1 drop Levothyroxine Sodium (Synthroid) 25 mcg PO 0630 [facility] Last Admin: 03/12/18 06:32 Dose: 25 mcg Metoprolol Tartrate (Lopressor) 25 mg PO BID [facility] Last Admin: 03/12/18 08:21 Dose: Not Given Montelukast Sodium (Singulair) 10 mg PO [facility] Last Admin: 03/11/18 21:03 Dose: 10 mg Morphine Sulfate (Morphine Immediate Release Tab) 15 mg PO Q4 PRN PRN Reason: Pain scale 4-10 Last Admin: 03/11/18 21:13 Dose: 15 mg Multivitamins/Minerals (Therapeutic-M Tab) 1 tab PO DAILY [facility] Last Admin: 03/12/18 08:19 Dose: 1 tab Mupirocin (Bactroban Ointment) 1 applic TOP 0600,1800 [facility] Last Admin: 03/12/18 05:20 Dose: 1 applic Ondansetron HCl (Zofran Odt) 4 mg PO Q8H [facility] Last Admin: 03/12/18 08:45 Dose: 4 mg Pregabalin (Lyrica) 50 mg PO [facility] Last Admin: 03/11/18 21:13 Dose: 50 mg Fluticasone/Salmeterol (Advair Diskus 250/50) 1 puff IH Q12 [facility] Last Admin: 03/12/18 08:12 Dose: 1 puff Sevelamer Carbonate (Renvela) 1,600 mg PO WM@0800,1200,1700 [facility] Last Admin: 03/12/18 12:11 Dose: 1,600 mg Silver Sulfadiazine (Silvadene 1% 20 Gm) 1 ea TOP 0600 [facility] Last Admin: 03/12/18 05:21 Dose: 1 applic Sodium Chloride ([place] Nasal [place]) 1 sprays HÉCTOR Q2 PRN PRN Reason: nasal congestion. Last Admin: 03/02/18 10:02 Dose: 1 spray Ticagrelor (Brilinta) 90 mg PO BID [facility] Last Admin: 03/12/18 08:21 Dose: Not Given Trazodone HCl (Desyrel) 50 mg PO HS [facility] Last Admin: 03/11/18 21:02 Dose: 50 mg - Labs Labs: 03/05/18 16:55 03/05/18 16:55 - Head Exam Head Exam: ATRAUMATIC, NORMAL INSPECTION, NORMOCEPHALIC - Eye Exam Eye Exam: EOMI, Normal appearance, PERRL Pupil Exam: NORMAL ACCOMODATION - ENT Exam ENT Exam: Mucous Membranes Moist, Normal Exam - Neck Exam Neck Exam: Normal Inspection - Respiratory Exam Respiratory Exam: Clear to Ausculation Bilateral, NORMAL BREATHING PATTERN - Cardiovascular Exam Cardiovascular Exam: REGULAR RHYTHM - GI/Abdominal Exam GI & Abdominal Exam: Soft, Normal Bowel Sounds - Rectal Exam Rectal Exam: NORMAL INSPECTION - Exam External exam: NORMAL EXTERNAL EXAM - Extremities Exam Extremities Exam: Full ROM, Normal Capillary Refill - Back Exam Back Exam: NORMAL INSPECTION - Neurological Exam Neurological Exam: Alert, Awake Neuro motor strength exam: Right Lower Extremity: 3 (righ tBKA) - Psychiatric Exam Psychiatric exam: Normal Affect, Normal Mood - Skin Skin Exam: Dry, Normal Color Assessment and Plan (1) Anemia in CKD (chronic kidney disease) Status: Acute (2) Chronic diarrhea Status: Acute (3) Diarrhea Status: Acute (4) Malabsorption Status: Acute (5) S/P BKA (below knee amputation) Assessment & Plan: plan for stump wraping , shaping, physical, occupational therapy program Status: Acute (6) CAD (coronary artery disease) Status: Chronic (7) Chronic kidney disease-mineral and bone disorder Status: Chronic (8) ESRD on hemodialysis Status: Chronic
[2018-03-12] MEDS: Insulin NPH Human 100 Units/ml Inj SC SCH (17:38)
--- NOTE | 2018-03-12 18:41 | RAD ---
Date of service: 03/12/2018 HISTORY: vomiting, r/o obstruction COMPARISON: No prior. FINDINGS: BOWEL: Prominent amount of retained colonic stool. No obstruction. No free air. BONES: Normal. OTHER FINDINGS: Right upper quadrant surgical clips. IMPRESSION: No active disease. Prominent amount of retained colonic stool.
[2018-03-12 20:35] LABS: BASO % 0.5 % (0.0-2.0); EOS # 0.1 K/uL (0.0-0.7); EOS % 1.6 % (0.0-4.0); HEMOGLOBIN 8.8 g/dL (12.0-18.0); LYMPH # 0.9 K/uL (1.0-4.3); LYMPH % 14.4 % (20.0-40.0); MEAN CELL VOLUME 96.9 fl (80.0-94.0); MEAN CORPUSCULAR HEMOGLOBIN 31.1 pg (27.0-31.0); MEAN CORPUSCULAR HGB CONC 32.1 g/dL (33.0-37.0); MEAN PLATELET VOLUME 9.6 fl (7.2-11.7); MONO # 0.9 K/uL (0.0-0.8); MONO % 14.2 % (0.0-10.0); NEUT # 4.2 K/uL (1.8-7.0); NEUT % 69.3 % (50.0-75.0); NRBC % 0.1 % (0.0-0.0); RBC 2.81 Mil/uL (4.40-5.90); RED CELL DISTRIBUTION WIDTH 21.2 % (11.5-14.5)
[2018-03-12 20:58] LABS: ALB/GLOB RATIO 0.6 (1.0-2.1); ALBUMIN 2.6 g/dL (3.5-5.0); CALCIUM 8.5 mg/dL (8.4-10.2)
--- NOTE | 2018-03-12 23:09 | CP.PCM.PN ---
Subjective - Date & Time of Evaluation Date of Evaluation: 03/12/18 Time of Evaluation: 13:00 - Subjective Subjective: Patient reports new onset vomiting although diarrhea has resolved; tolerating diet but vomiting subsequently; Objective - Vital Signs/Intake and Output Vital Signs (last 24 hours): Temp Pulse Resp BP Pulse Ox 97.0 F L 62 18 103/44 L 99 03/12/18 11:30 03/12/18 11:30 03/12/18 11:30 03/12/18 11:30 03/12/18 08:44 Intake and Output: 03/12/18 03/13/18 18:59 06:59 Intake Total 820 Output Total 600 Balance 220 - Medications Medications: Current Medications Albuterol/Ipratropium (Duoneb 3 Mg/0.5 Mg (3 Ml) Ud) 3 ml IH RQ6 PRN PRN Reason: Shortness of Breath Last Admin: 03/04/18 08:35 Dose: 3 ml Alprazolam (Xanax) 0.25 mg PO HS PRN PRN Reason: Anxiety Stop: 03/17/18 14:38 Aspirin (Ecotrin) 81 mg PO DAILY [facility] Last Admin: 03/12/18 08:21 Dose: Not Given Atorvastatin Calcium (Lipitor) 40 mg PO HS [facility] Last Admin: 03/11/18 21:02 Dose: 40 mg Bacitracin (Bacitracin) 1 ea TOP BID [facility] Last Admin: 03/12/18 17:36 Dose: 1 ea Capsaicin (Trixaicin Cream) 1 applic TOP Q6 PRN PRN Reason: bilateral wrist pain Last Admin: 03/10/18 17:15 Dose: 1 applic Dextrose (Dextrose 50% Inj) 0 ml IV STAT PRN; Protocol PRN Reason: Hypoglycemia Protocol Dextrose (Glutose 15) 0 gm PO ONCE PRN; Protocol PRN Reason: Hypoglycemia Protocol Dimethicone (Proshield Plus Skin Protectant) 1 applic TOP Q8 [facility] Last Admin: 03/12/18 14:06 Dose: 1 applic Diphenhydramine HCl (Benadryl) 25 mg PO HS PRN PRN Reason: Insomnia Last Admin: 03/09/18 21:11 Dose: 25 mg Epoetin Sudeep (Procrit) 10,000 unit IV MWF [facility] Last Admin: 03/09/18 15:24 Dose: 10,000 unit Ergocalciferol (Drisdol 50,000 Intl Units Cap) 1 cap PO WED [facility] Fenofibrate (Tricor) 145 mg PO DAILY [facility] Last Admin: 03/12/18 08:19 Dose: 145 mg Glucagon (Glucagen Diagnostic Kit) 0 mg IM STAT PRN; Protocol PRN Reason: Hypoglycemia Protocol Hydralazine HCl (Apresoline) 25 mg PO BID [facility] Last Admin: 03/12/18 08:20 Dose: Not Given Insulin Human NPH (Humulin N) 25 units SC QPM [facility] Last Admin: 03/12/18 17:38 Dose: Not Given Insulin Human Regular (Humulin R) 0 units SC ACHS [facility] PRN Reason: Protocol Last Admin: 03/12/18 22:38 Dose: Not Given Latanoprost (Xalatan Opht) 1 drop OU HS [facility] Last Admin: 03/11/18 21:03 Dose: 1 drop Levothyroxine Sodium (Synthroid) 25 mcg PO 0630 [facility] Last Admin: 03/12/18 06:32 Dose: 25 mcg Metoprolol Tartrate (Lopressor) 25 mg PO BID [facility] Last Admin: 03/12/18 08:21 Dose: Not Given Montelukast Sodium (Singulair) 10 mg PO HS [facility] Last Admin: 03/11/18 21:03 Dose: 10 mg Morphine Sulfate (Morphine Immediate Release Tab) 15 mg PO Q4 PRN PRN Reason: Pain scale 4-10 Last Admin: 03/11/18 21:13 Dose: 15 mg Multivitamins/Minerals (Therapeutic-M Tab) 1 tab PO DAILY [facility] Last Admin: 03/12/18 08:19 Dose: 1 tab Mupirocin (Bactroban Ointment) 1 applic TOP 0600,1800 [facility] Last Admin: 03/12/18 17:37 Dose: 1 applic Ondansetron HCl (Zofran Odt) 4 mg PO Q8H [facility] Last Admin: 03/12/18 17:35 Dose: 4 mg Pregabalin (Lyrica) 50 mg PO HS [facility] Last Admin: 03/11/18 21:13 Dose: 50 mg Fluticasone/Salmeterol (Advair Diskus 250/50) 1 puff IH Q12 [facility] Last Admin: 03/12/18 08:12 Dose: 1 puff Sevelamer Carbonate (Renvela) 1,600 mg PO WM@0800,1200,1700 [facility] Last Admin: 03/12/18 12:11 Dose: 1,600 mg Silver Sulfadiazine (Silvadene 1% 20 Gm) 1 ea TOP 0600 [facility] Last Admin: 03/12/18 05:21 Dose: 1 applic Sodium Chloride ([place] Nasal [place]) 1 sprays HÉCTOR Q2 PRN PRN Reason: nasal congestion. Last Admin: 03/02/18 10:02 Dose: 1 spray Ticagrelor (Brilinta) 90 mg PO BID [facility] Last Admin: 03/12/18 08:21 Dose: Not Given Trazodone HCl (Desyrel) 50 mg PO HS [facility] Last Admin: 03/11/18 21:02 Dose: 50 mg - Labs Labs: 03/12/18 20:22 03/12/18 20:22 - Constitutional Appears: Non-toxic, No Acute Distress - Eye Exam Eye Exam: Normal appearance - Respiratory Exam Respiratory Exam: Clear to Ausculation Bilateral. absent: Respiratory Distress - Cardiovascular Exam Cardiovascular Exam: RRR. absent: Gallop, Rubs - GI/Abdominal Exam GI & Abdominal Exam: Soft. absent: Distended - Extremities Exam Additional comments: mild b/l leg edema; - Neurological Exam Neurological Exam: Alert, Awake - Psychiatric Exam Psychiatric exam: Normal Affect, Normal Mood. absent: Agitated - Skin Skin Exam: Warm. absent: Cyanosis Assessment and Plan (1) ESRD on hemodialysis Assessment & Plan: Stable electrolyte and volume status; decreasing UF goal to 3L today in the setting of vomiting, if BP drops, will decrease goal further; Status: Chronic (2) Hypertensive CKD, ESRD on dialysis Assessment & Plan: BP controlled, continue current meds; Status: Chronic (3) Anemia in CKD (chronic kidney disease) Assessment & Plan: Drop in hgb noted, will increase EPO dose; Status: Acute (4) Chronic kidney disease-mineral and bone disorder Assessment & Plan: PTH oversuppressed and so was switched to non-Ca phos binder; new binder may be contributing to vomiting, will hold for now; Status: Chronic (5) S/P BKA (below knee amputation) Status: Acute
[2018-03-12] MEDS: Latanoprost 0.005% Opht SOUTION OU SCH (23:55)
[2018-03-13] MEDS: Fluticasone-Salmeterol 250-50mcg Diskus IH SCH ×3 (00:12→21:10)
[2018-03-13] MEDS: Proshield Plus GEL TOP SCH ×3 (06:09→21:11)
[2018-03-13] MEDS: Silver Sulfadiazine 1% Cream (20 gm) TOP SCH (06:09)
[2018-03-13] MEDS: Levothyroxine 25 MCG TAB PO SCH (06:10)
[2018-03-13] MEDS: Insulin Regular 100 units/ml SC SCH ×4 (06:52→21:16)
[2018-03-13] MEDS: Bacitracin 500 Units/gm Oint Foilpak UD TOP SCH ×2 (08:06→17:14)
[2018-03-13] MEDS: Multivitamin With Minerals Tab PO SCH (08:06)
[2018-03-13] MEDS ORDERED: Atropine-Diphenoxylate 0.025-2.5 mg Tab PO SCH (09:00)
--- NOTE | 2018-03-13 09:12 | CP.PCM.PN ---
Subjective - Date & Time of Evaluation Date of Evaluation: 03/13/18 Time of Evaluation: 09:00 - Subjective Subjective: GI progress note for Dr. Hernandez Patient seen and examined at bedside this AM. Patient continued to have postprandial nausea and vomiting yesterday and patient was placed on a liquid diet and KUB was performed which showed gas throughout the colon, but significan stool retention throughout the colon. Patient was given one dose of lactulose and had a small liquid BM this AM. Tolerated liquid diet for breakfast , no nausea or vomiting or abdominal pain at this time. Objective - Vital Signs/Intake and Output Vital Signs (last 24 hours): Temp Pulse Resp BP Pulse Ox 97.7 F 89 22 117/52 L 98 03/13/18 08:50 03/13/18 08:50 03/13/18 08:50 03/13/18 08:50 03/13/18 08:16 Intake and Output: 03/13/18 03/13/18 06:59 18:59 Intake Total 350 Balance 350 - Medications Medications: Current Medications Albuterol/Ipratropium (Duoneb 3 Mg/0.5 Mg (3 Ml) Ud) 3 ml IH RQ6 PRN PRN Reason: Shortness of Breath Last Admin: 03/04/18 08:35 Dose: 3 ml Alprazolam (Xanax) 0.25 mg PO HS PRN PRN Reason: Anxiety Stop: 03/17/18 14:38 Aspirin (Ecotrin) 81 mg PO DAILY [facility] Last Admin: 03/13/18 08:07 Dose: 81 mg Atorvastatin Calcium (Lipitor) 40 mg PO HS [facility] Last Admin: 03/12/18 23:44 Dose: 40 mg Bacitracin (Bacitracin) 1 ea TOP BID [facility] Last Admin: 03/13/18 08:06 Dose: 1 ea Capsaicin (Trixaicin Cream) 1 applic TOP Q6 PRN PRN Reason: bilateral wrist pain Last Admin: 03/10/18 17:15 Dose: 1 applic Dextrose (Dextrose 50% Inj) 0 ml IV STAT PRN; Protocol PRN Reason: Hypoglycemia Protocol Dextrose (Glutose 15) 0 gm PO ONCE PRN; Protocol PRN Reason: Hypoglycemia Protocol Dimethicone (Proshield Plus Skin Protectant) 1 applic TOP Q8 [facility] Last Admin: 03/13/18 06:09 Dose: 1 applic Diphenhydramine HCl (Benadryl) 25 mg PO HS PRN PRN Reason: Insomnia Last Admin: 03/12/18 23:53 Dose: 25 mg Epoetin Sudeep (Procrit) 10,000 unit IV MWF [facility] Last Admin: 03/09/18 15:24 Dose: 10,000 unit Ergocalciferol (Drisdol 50,000 Intl Units Cap) 1 cap PO WED [facility] Fenofibrate (Tricor) 145 mg PO DAILY [facility] Last Admin: 03/13/18 08:09 Dose: 145 mg Glucagon (Glucagen Diagnostic Kit) 0 mg IM STAT PRN; Protocol PRN Reason: Hypoglycemia Protocol Hydralazine HCl (Apresoline) 25 mg PO BID [facility] Last Admin: 03/13/18 08:06 Dose: 25 mg Insulin Human NPH (Humulin N) 25 units SC QPM [facility] Last Admin: 03/12/18 17:38 Dose: Not Given Insulin Human Regular (Humulin R) 0 units SC ACHS [facility] PRN Reason: Protocol Last Admin: 03/13/18 06:52 Dose: Not Given Lactulose (Enulose) 20 gm PO ONCE ONE Stop: 03/13/18 09:11 Latanoprost (Xalatan Opht) 1 drop OU HS [facility] Last Admin: 03/12/18 23:55 Dose: 1 drop Levothyroxine Sodium (Synthroid) 25 mcg PO 0630 [facility] Last Admin: 03/13/18 06:10 Dose: 25 mcg Metoprolol Tartrate (Lopressor) 25 mg PO BID [facility] Last Admin: 03/13/18 08:08 Dose: 25 mg Montelukast Sodium (Singulair) 10 mg PO HS [facility] Last Admin: 03/12/18 23:53 Dose: 10 mg Morphine Sulfate (Morphine Immediate Release Tab) 15 mg PO Q4 PRN PRN Reason: Pain scale 4-10 Last Admin: 03/11/18 21:13 Dose: 15 mg Multivitamins/Minerals (Therapeutic-M Tab) 1 tab PO DAILY [facility] Last Admin: 03/13/18 08:06 Dose: 1 tab Mupirocin (Bactroban Ointment) 1 applic TOP 0600,1800 [facility] Last Admin: 03/13/18 06:08 Dose: 1 applic Ondansetron HCl (Zofran Odt) 4 mg PO Q8H [facility] Last Admin: 03/13/18 08:11 Dose: 4 mg Pregabalin (Lyrica) 50 mg PO HS [facility] Last Admin: 03/12/18 23:45 Dose: 50 mg Fluticasone/Salmeterol (Advair Diskus 250/50) 1 puff IH Q12 [facility] Last Admin: 03/13/18 08:05 Dose: 1 puff Sevelamer Carbonate (Renvela) 1,600 mg PO WM@0800,1200,1700 [facility] Last Admin: 03/12/18 12:11 Dose: 1,600 mg Silver Sulfadiazine (Silvadene 1% 20 Gm) 1 ea TOP 0600 [facility] Last Admin: 03/13/18 06:09 Dose: 1 applic Sodium Chloride ([place] Nasal [place]) 1 sprays HÉCTOR Q2 PRN PRN Reason: nasal congestion. Last Admin: 03/02/18 10:02 Dose: 1 spray Ticagrelor (Brilinta) 90 mg PO BID [facility] Last Admin: 03/13/18 08:06 Dose: 90 mg Trazodone HCl (Desyrel) 50 mg PO [facility] Last Admin: 03/12/18 23:48 Dose: 50 mg - Labs Labs: 03/12/18 20:22 03/12/18 20:22 - Constitutional Appears: Well, Non-toxic, No Acute Distress - Head Exam Head Exam: ATRAUMATIC, NORMOCEPHALIC - Eye Exam Eye Exam: Normal appearance. absent: Conjunctival injection, Scleral icterus - ENT Exam ENT Exam: Mucous Membranes Moist, Normal Oropharynx - Respiratory Exam Respiratory Exam: NORMAL BREATHING PATTERN. absent: Accessory Muscle Use, Respiratory Distress - GI/Abdominal Exam GI & Abdominal Exam: Soft. absent: Distended, Tenderness - Neurological Exam Neurological Exam: Alert, Awake, Oriented x3 - Psychiatric Exam Psychiatric exam: Normal Affect, Normal Mood - Skin Skin Exam: Dry, Normal Color, Warm Assessment and Plan - Assessment and Plan (Free Text) Assessment: 52M with constipation, nausea and vomiting Plan: Give one time dose of lactulose this AM. Advance to bland, low fat, carb controlled diet as tolerated D/C lomotil Encourage activity as possible with PT Discussed and examined with Dr. Mary Haro PGY2
[2018-03-13] MEDS: Insulin NPH Human 100 Units/ml Inj SC SCH (17:15)
[2018-03-13] MEDS: Latanoprost 0.005% Opht SOUTION OU SCH (21:11)
[2018-03-13] MEDS: Morphine 15 mg Immediate Release Tab PO PRN (23:09)
[2018-03-14] MEDS: Proshield Plus GEL TOP SCH ×3 (06:08→23:28)
[2018-03-14] MEDS: Silver Sulfadiazine 1% Cream (20 gm) TOP SCH (06:08)
[2018-03-14] MEDS: Levothyroxine 25 MCG TAB PO SCH (06:09)
[2018-03-14] MEDS: Insulin Regular 100 units/ml SC SCH ×4 (06:59→21:00)
[2018-03-14] MEDS: Fluticasone-Salmeterol 250-50mcg Diskus IH SCH ×2 (08:08→21:46)
[2018-03-14] MEDS: Bacitracin 500 Units/gm Oint Foilpak UD TOP SCH ×2 (08:09→18:47)
[2018-03-14] MEDS: Multivitamin With Minerals Tab PO SCH (08:11)
[2018-03-14] MEDS: Cholestyramine 4 gm/Pkt UD PO SCH (12:19)
--- NOTE | 2018-03-14 12:58 | CP.PCM.PN ---
Subjective - Date & Time of Evaluation Date of Evaluation: 03/14/18 Time of Evaluation: 11:00 - Subjective Subjective: no stump pain Objective - Vital Signs/Intake and Output Vital Signs (last 24 hours): Temp Pulse Resp BP Pulse Ox 97.0 F L 62 22 96/50 L 100 03/14/18 08:26 03/14/18 08:41 03/14/18 08:26 03/14/18 08:26 03/14/18 08:41 Intake and Output: 03/14/18 03/14/18 06:59 18:59 Intake Total 300 Balance 300 - Medications Medications: Current Medications Albuterol/Ipratropium (Duoneb 3 Mg/0.5 Mg (3 Ml) Ud) 3 ml IH RQ6 PRN PRN Reason: Shortness of Breath Last Admin: 03/04/18 08:35 Dose: 3 ml Alprazolam (Xanax) 0.25 mg PO HS PRN PRN Reason: Anxiety Stop: 03/17/18 14:38 Aspirin (Ecotrin) 81 mg PO DAILY [facility] Last Admin: 03/13/18 08:07 Dose: 81 mg Atorvastatin Calcium (Lipitor) 40 mg PO HS [facility] Last Admin: 03/13/18 21:10 Dose: 40 mg Bacitracin (Bacitracin) 1 ea TOP BID [facility] Last Admin: 03/14/18 08:09 Dose: 1 ea Capsaicin (Trixaicin Cream) 1 applic TOP Q6 PRN PRN Reason: bilateral wrist pain Last Admin: 03/10/18 17:15 Dose: 1 applic Cholestyramine Resin (Questran) 4 gm PO DAILY [facility] Last Admin: 03/14/18 12:19 Dose: 4 gm Dextrose (Dextrose 50% Inj) 0 ml IV STAT PRN; Protocol PRN Reason: Hypoglycemia Protocol Dextrose (Glutose 15) 0 gm PO ONCE PRN; Protocol PRN Reason: Hypoglycemia Protocol Dimethicone (Proshield Plus Skin Protectant) 1 applic TOP Q8 [facility] Last Admin: 03/14/18 06:08 Dose: 1 applic Diphenhydramine HCl (Benadryl) 25 mg PO HS PRN PRN Reason: Insomnia Last Admin: 03/13/18 21:11 Dose: 25 mg Epoetin Sudeep (Procrit) 20,000 unit IV MWF [facility] Ergocalciferol (Drisdol 50,000 Intl Units Cap) 1 cap PO WED [facility] Fenofibrate (Tricor) 145 mg PO DAILY [facility] Last Admin: 03/14/18 08:11 Dose: 145 mg Ferrous Sulfate (Feosol) 325 mg PO DAILY [facility] Last Admin: 03/14/18 12:22 Dose: 325 mg Glucagon (Glucagen Diagnostic Kit) 0 mg IM STAT PRN; Protocol PRN Reason: Hypoglycemia Protocol Hydralazine HCl (Apresoline) 25 mg PO BID [facility] Last Admin: 03/14/18 08:23 Dose: Not Given Insulin Human NPH (Humulin N) 25 units SC QPM [facility] Last Admin: 03/13/18 17:15 Dose: Not Given Insulin Human Regular (Humulin R) 0 units SC ACHS [facility] PRN Reason: Protocol Last Admin: 03/14/18 12:20 Dose: 4 units Latanoprost (Xalatan Opht) 1 drop OU HS [facility] Last Admin: 03/13/18 21:11 Dose: 1 drop Levothyroxine Sodium (Synthroid) 25 mcg PO 0630 [facility] Last Admin: 03/14/18 06:09 Dose: 25 mcg Metoprolol Tartrate (Lopressor) 25 mg PO BID [facility] Last Admin: 03/14/18 08:24 Dose: Not Given Montelukast Sodium (Singulair) 10 mg PO HS [facility] Last Admin: 03/13/18 21:11 Dose: 10 mg Morphine Sulfate (Morphine Immediate Release Tab) 15 mg PO Q4 PRN PRN Reason: Pain scale 4-10 Last Admin: 03/13/18 23:09 Dose: 15 mg Multivitamins/Minerals (Therapeutic-M Tab) 1 tab PO DAILY [facility] Last Admin: 03/14/18 08:11 Dose: 1 tab Mupirocin (Bactroban Ointment) 1 applic TOP 0600,1800 [facility] Last Admin: 03/14/18 06:08 Dose: 1 applic Ondansetron HCl (Zofran Odt) 4 mg PO TID [facility] Last Admin: 03/14/18 12:34 Dose: 4 mg Pregabalin (Lyrica) 50 mg PO HS [facility] Last Admin: 03/13/18 21:10 Dose: 50 mg Fluticasone/Salmeterol (Advair Diskus 250/50) 1 puff IH Q12 [facility] Last Admin: 03/14/18 08:08 Dose: 1 puff Sevelamer Carbonate (Renvela) 1,600 mg PO WM@0800,1200,1700 [facility] Last Admin: 03/12/18 12:11 Dose: 1,600 mg Silver Sulfadiazine (Silvadene 1% 20 Gm) 1 ea TOP 0600 [facility] Last Admin: 03/14/18 06:08 Dose: 1 applic Sodium Chloride ([place] Nasal [place]) 1 sprays HÉCTOR Q2 PRN PRN Reason: nasal congestion. Last Admin: 03/02/18 10:02 Dose: 1 spray Ticagrelor (Brilinta) 90 mg PO BID [facility] Last Admin: 03/14/18 08:23 Dose: Not Given Trazodone HCl (Desyrel) 50 mg PO HS [facility] Last Admin: 03/13/18 21:11 Dose: 50 mg - Labs Labs: 03/12/18 20:22 03/12/18 20:22 - Head Exam Head Exam: ATRAUMATIC, NORMAL INSPECTION, NORMOCEPHALIC - Eye Exam Eye Exam: EOMI, Normal appearance, PERRL Pupil Exam: NORMAL ACCOMODATION - ENT Exam ENT Exam: Mucous Membranes Moist, Normal Exam - Neck Exam Neck Exam: Normal Inspection - Respiratory Exam Respiratory Exam: Clear to Ausculation Bilateral, NORMAL BREATHING PATTERN - Cardiovascular Exam Cardiovascular Exam: REGULAR RHYTHM - GI/Abdominal Exam GI & Abdominal Exam: Soft, Normal Bowel Sounds - Rectal Exam Rectal Exam: NORMAL INSPECTION - Exam External exam: NORMAL EXTERNAL EXAM - Extremities Exam Extremities Exam: Full ROM, Normal Capillary Refill, Normal Inspection - Back Exam Additional comments: Right BKA - Neurological Exam Neurological Exam: Alert, Awake Neuro motor strength exam: Left Upper Extremity: 3, Right Upper Extremity: 3, Left Lower Extremity: 3, Right Lower Extremity: 3 - Psychiatric Exam Psychiatric exam: Normal Affect, Normal Mood - Skin Skin Exam: Dry, Intact Assessment and Plan (1) Anemia in CKD (chronic kidney disease) Status: Acute (2) Chronic diarrhea Status: Acute (3) Diarrhea Status: Acute (4) Malabsorption Status: Acute (5) S/P BKA (below knee amputation) Assessment & Plan: pt, ot rec therapy I have evaluated Ameya Bates on 03/14/2018 for his mobility limitation due to Right Below the Knee Amputation that significantly impairs his ability to participate in one or more mobility-related activities of daily living (MRADLs) such as toileting, feeding, dressing, grooming and bathing in customary locations in the home. The beneficiarys mobility limitation cannot be sufficiently resolved by the use of an appropriately fitted cane or walker since the patient is not able to ambulate for long distances. The beneficiarys home provides adequate access between rooms, maneuvering space, and surfaces for use of the lightweight wheelchair that is provided. The beneficiary has sufficient upper body strength to self propel a lightweight wheelchair but does not have the upper body strength to self propel a standard wheelchair due to upper body weakness. Use of a lightweight wheelchair will significantly improve the beneficiarys ability to participate in MRADLs and he will use it on a regular basis in the home. Mr. Bates has expressed willingness and ability to use the lightweight wheelchair that is provided in the home. Patient will require the use of anti-tippers to prevent wheelchair from tipping forward or backward. Patient will also require a seat belt for safety, bilateral removable full length flip back arm rests to provide aide in pushing upwards as well as safety for transfers, and left elevating leg rest for right residual limb support. Patient will also require specialized gel cushion for Stage II wound. I have evaluated Ameya Bates on 03/14/2018. Due to patients diagnosis of Obstructive Sleep Apnea (on CPAP), Chronic Obstructive Pulmonary Disease and Severe Pulmonary Hypertension, he requires the head of the bed to be elevated more than 30 degrees most of the time. Furthermore, patient requires positioning of the body in ways not feasible with an ordinary bed in order to alleviate pain due to Stage II sacral wound. Status: Acute (6) CAD (coronary artery disease) Status: Chronic (7) Chronic kidney disease-mineral and bone disorder Status: Chronic (8) ESRD on hemodialysis Status: Chronic
--- NOTE | 2018-03-14 14:46 | CP.PCM.PN ---
Subjective - Date & Time of Evaluation Date of Evaluation: 03/14/18 Time of Evaluation: 13:10 - Subjective Subjective: GI progress note for Dr. Hernandez Pt seen and examined with Dr. Hernandez at bedside. States mild nausea after lunch well controlled with zofran but denies any vomiting. Patient had 7 small, normal color, normal consistency bowel movements yesterday with the lactulose. Tolerating diet, no fevers or abdominal pain Objective - Vital Signs/Intake and Output Vital Signs (last 24 hours): Temp Pulse Resp BP Pulse Ox 97.0 F L 62 22 96/50 L 100 03/14/18 08:26 03/14/18 08:41 03/14/18 08:26 03/14/18 08:26 03/14/18 08:41 Intake and Output: 03/14/18 03/14/18 06:59 18:59 Intake Total 300 Balance 300 - Medications Medications: Current Medications Albuterol/Ipratropium (Duoneb 3 Mg/0.5 Mg (3 Ml) Ud) 3 ml IH RQ6 PRN PRN Reason: Shortness of Breath Last Admin: 03/04/18 08:35 Dose: 3 ml Alprazolam (Xanax) 0.25 mg PO HS PRN PRN Reason: Anxiety Stop: 03/17/18 14:38 Aspirin (Ecotrin) 81 mg PO DAILY [facility] Last Admin: 03/13/18 08:07 Dose: 81 mg Atorvastatin Calcium (Lipitor) 40 mg PO HS [facility] Last Admin: 03/13/18 21:10 Dose: 40 mg Bacitracin (Bacitracin) 1 ea TOP BID [facility] Last Admin: 03/14/18 08:09 Dose: 1 ea Capsaicin (Trixaicin Cream) 1 applic TOP Q6 PRN PRN Reason: bilateral wrist pain Last Admin: 03/10/18 17:15 Dose: 1 applic Cholestyramine Resin (Questran) 4 gm PO DAILY [facility] Last Admin: 03/14/18 12:19 Dose: 4 gm Dextrose (Dextrose 50% Inj) 0 ml IV STAT PRN; Protocol PRN Reason: Hypoglycemia Protocol Dextrose (Glutose 15) 0 gm PO ONCE PRN; Protocol PRN Reason: Hypoglycemia Protocol Dimethicone (Proshield Plus Skin Protectant) 1 applic TOP Q8 [facility] Last Admin: 03/14/18 06:08 Dose: 1 applic Diphenhydramine HCl (Benadryl) 25 mg PO HS PRN PRN Reason: Insomnia Last Admin: 03/13/18 21:11 Dose: 25 mg Epoetin Sudeep (Procrit) 20,000 unit IV MWF [facility] Ergocalciferol (Drisdol 50,000 Intl Units Cap) 1 cap PO WED [facility] Fenofibrate (Tricor) 145 mg PO DAILY [facility] Last Admin: 03/14/18 08:11 Dose: 145 mg Ferrous Sulfate (Feosol) 325 mg PO DAILY [facility] Last Admin: 03/14/18 12:22 Dose: 325 mg Glucagon (Glucagen Diagnostic Kit) 0 mg IM STAT PRN; Protocol PRN Reason: Hypoglycemia Protocol Hydralazine HCl (Apresoline) 25 mg PO BID [facility] Last Admin: 03/14/18 08:23 Dose: Not Given Insulin Human NPH (Humulin N) 25 units SC QPM [facility] Last Admin: 03/13/18 17:15 Dose: Not Given Insulin Human Regular (Humulin R) 0 units SC ACHS [facility] PRN Reason: Protocol Last Admin: 03/14/18 12:20 Dose: 4 units Latanoprost (Xalatan Opht) 1 drop OU HS [facility] Last Admin: 03/13/18 21:11 Dose: 1 drop Levothyroxine Sodium (Synthroid) 25 mcg PO 0630 [facility] Last Admin: 03/14/18 06:09 Dose: 25 mcg Metoprolol Tartrate (Lopressor) 25 mg PO BID [facility] Last Admin: 03/14/18 08:24 Dose: Not Given Montelukast Sodium (Singulair) 10 mg PO HS [facility] Last Admin: 03/13/18 21:11 Dose: 10 mg Morphine Sulfate (Morphine Immediate Release Tab) 15 mg PO Q4 PRN PRN Reason: Pain scale 4-10 Last Admin: 03/13/18 23:09 Dose: 15 mg Multivitamins/Minerals (Therapeutic-M Tab) 1 tab PO DAILY [facility] Last Admin: 03/14/18 08:11 Dose: 1 tab Mupirocin (Bactroban Ointment) 1 applic TOP 0600,1800 [facility] Last Admin: 03/14/18 06:08 Dose: 1 applic Ondansetron HCl (Zofran Odt) 4 mg PO TID [facility] Last Admin: 03/14/18 12:34 Dose: 4 mg Pregabalin (Lyrica) 50 mg PO HS [facility] Last Admin: 03/13/18 21:10 Dose: 50 mg Fluticasone/Salmeterol (Advair Diskus 250/50) 1 puff IH Q12 [facility] Last Admin: 03/14/18 08:08 Dose: 1 puff Sevelamer Carbonate (Renvela) 1,600 mg PO WM@0800,1200,1700 [facility] Last Admin: 03/12/18 12:11 Dose: 1,600 mg Silver Sulfadiazine (Silvadene 1% 20 Gm) 1 ea TOP 0600 [facility] Last Admin: 03/14/18 06:08 Dose: 1 applic Sodium Chloride ([place] Nasal [place]) 1 sprays HÉCTOR Q2 PRN PRN Reason: nasal congestion. Last Admin: 03/02/18 10:02 Dose: 1 spray Ticagrelor (Brilinta) 90 mg PO BID [facility] Last Admin: 03/14/18 08:23 Dose: Not Given Trazodone HCl (Desyrel) 50 mg PO HS [facility] Last Admin: 03/13/18 21:11 Dose: 50 mg - Labs Labs: 03/12/18 20:22 03/12/18 20:22 - Constitutional Appears: Well, Non-toxic, No Acute Distress - Head Exam Head Exam: ATRAUMATIC, NORMOCEPHALIC - Eye Exam Eye Exam: Normal appearance. absent: Conjunctival injection, Scleral icterus - ENT Exam ENT Exam: Mucous Membranes Moist, Normal Oropharynx - Respiratory Exam Respiratory Exam: NORMAL BREATHING PATTERN. absent: Accessory Muscle Use, Respiratory Distress - GI/Abdominal Exam GI & Abdominal Exam: Soft. absent: Distended, Tenderness - Neurological Exam Neurological Exam: Alert, Awake, Oriented x3 - Psychiatric Exam Psychiatric exam: Normal Affect, Normal Mood - Skin Skin Exam: Dry, Intact, Normal Color, Warm Assessment and Plan - Assessment and Plan (Free Text) Assessment: 52M with constipation Plan: Continue current bowel regimen hold iron supplementation as it causes constipation Continue activity as tolerated with PT No indication for any GI intervention Follow up with Dr. Donato as an outpatient as patient has been worked up extensively by him in the past Discussed and examined with Dr. Mary Haro, PGY2
[2018-03-14] MEDS: Epoetin Alfa 20000 UNIT/ML Inj IV SCH (18:44)
[2018-03-14] MEDS: Insulin NPH Human 100 Units/ml Inj SC SCH (18:46)
[2018-03-14] MEDS: Morphine 15 mg Immediate Release Tab PO PRN ×2 (18:52→23:44)
--- NOTE | 2018-03-14 23:24 | CP.PCM.PN ---
Subjective - Date & Time of Evaluation Date of Evaluation: 03/14/18 Time of Evaluation: 13:00 - Subjective Subjective: Patient reports feeling well; doing well in PT but got a little short of breath today; no more vomiting or diarrhea; Objective - Vital Signs/Intake and Output Vital Signs (last 24 hours): Temp Pulse Resp BP Pulse Ox 97.7 F 63 20 120/51 L 98 03/14/18 20:02 03/14/18 20:02 03/14/18 20:02 03/14/18 20:02 03/14/18 20:02 Intake and Output: 03/14/18 03/15/18 18:59 06:59 Intake Total 300 Balance 300 - Medications Medications: Current Medications Albuterol/Ipratropium (Duoneb 3 Mg/0.5 Mg (3 Ml) Ud) 3 ml IH RQ6 PRN PRN Reason: Shortness of Breath Last Admin: 03/04/18 08:35 Dose: 3 ml Alprazolam (Xanax) 0.25 mg PO HS PRN PRN Reason: Anxiety Stop: 03/17/18 14:38 Aspirin (Ecotrin) 81 mg PO DAILY [facility] Last Admin: 03/14/18 10:00 Dose: Not Given Atorvastatin Calcium (Lipitor) 40 mg PO HS [facility] Last Admin: 03/13/18 21:10 Dose: 40 mg Bacitracin (Bacitracin) 1 ea TOP BID [facility] Last Admin: 03/14/18 18:47 Dose: 1 ea Capsaicin (Trixaicin Cream) 1 applic TOP Q6 PRN PRN Reason: bilateral wrist pain Last Admin: 03/10/18 17:15 Dose: 1 applic Cholestyramine Resin (Questran) 4 gm PO DAILY [facility] Last Admin: 03/14/18 12:19 Dose: 4 gm Dextrose (Dextrose 50% Inj) 0 ml IV STAT PRN; Protocol PRN Reason: Hypoglycemia Protocol Dextrose (Glutose 15) 0 gm PO ONCE PRN; Protocol PRN Reason: Hypoglycemia Protocol Dimethicone (Proshield Plus Skin Protectant) 1 applic TOP Q8 [facility] Last Admin: 03/14/18 14:25 Dose: 1 applic Diphenhydramine HCl (Benadryl) 25 mg PO HS PRN PRN Reason: Insomnia Last Admin: 03/13/18 21:11 Dose: 25 mg Epoetin Sudeep (Procrit) 20,000 unit IV MWF [facility] Last Admin: 03/14/18 18:44 Dose: 20,000 unit Ergocalciferol (Drisdol 50,000 Intl Units Cap) 1 cap PO WED [facility] Fenofibrate (Tricor) 145 mg PO DAILY [facility] Last Admin: 03/14/18 08:11 Dose: 145 mg Glucagon (Glucagen Diagnostic Kit) 0 mg IM STAT PRN; Protocol PRN Reason: Hypoglycemia Protocol Hydralazine HCl (Apresoline) 25 mg PO BID [facility] Last Admin: 03/14/18 18:00 Dose: Not Given Insulin Human NPH (Humulin N) 25 units SC QPM [facility] Last Admin: 03/14/18 18:46 Dose: Not Given Insulin Human Regular (Humulin R) 0 units SC ACHS [facility] PRN Reason: Protocol Last Admin: 03/14/18 21:00 Dose: Not Given Latanoprost (Xalatan Opht) 1 drop OU HS [facility] Last Admin: 03/13/18 21:11 Dose: 1 drop Levothyroxine Sodium (Synthroid) 25 mcg PO 0630 [facility] Last Admin: 03/14/18 06:09 Dose: 25 mcg Metoprolol Tartrate (Lopressor) 25 mg PO BID [facility] Last Admin: 03/14/18 18:00 Dose: Not Given Montelukast Sodium (Singulair) 10 mg PO [facility] Last Admin: 03/13/18 21:11 Dose: 10 mg Morphine Sulfate (Morphine Immediate Release Tab) 15 mg PO Q4 PRN PRN Reason: Pain scale 4-10 Last Admin: 03/14/18 18:52 Dose: 15 mg Multivitamins/Minerals (Therapeutic-M Tab) 1 tab PO DAILY [facility] Last Admin: 03/14/18 08:11 Dose: 1 tab Mupirocin (Bactroban Ointment) 1 applic TOP 0600,1800 [facility] Last Admin: 03/14/18 18:52 Dose: Not Given Ondansetron HCl (Zofran Odt) 4 mg PO TID [facility] Last Admin: 03/14/18 17:02 Dose: 4 mg Pregabalin (Lyrica) 50 mg PO HS [facility] Last Admin: 03/13/18 21:10 Dose: 50 mg Fluticasone/Salmeterol (Advair Diskus 250/50) 1 puff IH Q12 [facility] Last Admin: 08/29/18 21:46 Dose: 1 puff Sevelamer Carbonate (Renvela) 1,600 mg PO WM@0800,1200,1700 [facility] Last Admin: 03/12/18 12:11 Dose: 1,600 mg Silver Sulfadiazine (Silvadene 1% 20 Gm) 1 ea TOP 0600 [facility] Last Admin: 03/14/18 06:08 Dose: 1 applic Sodium Chloride ([place] Nasal [place]) 1 sprays HÉCTOR Q2 PRN PRN Reason: nasal congestion. Last Admin: 03/02/18 10:02 Dose: 1 spray Ticagrelor (Brilinta) 90 mg PO BID [facility] Last Admin: 03/14/18 17:30 Dose: Not Given Trazodone HCl (Desyrel) 50 mg PO HS [facility] Last Admin: 03/13/18 21:11 Dose: 50 mg - Labs Labs: 03/12/18 20:22 03/12/18 20:22 - Constitutional Appears: Non-toxic, No Acute Distress - Eye Exam Eye Exam: Normal appearance. absent: Scleral icterus - Respiratory Exam Respiratory Exam: Clear to Ausculation Bilateral. absent: Respiratory Distress - Cardiovascular Exam Cardiovascular Exam: +S1, +S2. absent: Gallop, Rubs - GI/Abdominal Exam GI & Abdominal Exam: Soft. absent: Distended, Tenderness - Extremities Exam Additional comments: mild leg edema b/l - Neurological Exam Neurological Exam: Alert, Awake - Psychiatric Exam Psychiatric exam: Normal Affect, Normal Mood. absent: Agitated - Skin Skin Exam: Warm. absent: Cyanosis Assessment and Plan (1) ESRD on hemodialysis Assessment & Plan: Stable electrolyte and volume status; HD today per routine with UF goal 3.5L; Status: Chronic (2) Hypertensive CKD, ESRD on dialysis Assessment & Plan: BP well controlled, continue current meds; Status: Chronic (3) Anemia in CKD (chronic kidney disease) Assessment & Plan: Hgb well below goal; iron sat low per recent labs; ferritin level obtained today to ensure there is no contraindication to giving IV iron (generally given per outpatient HD protocol unless ferritin > 1000); will give IV iron 100 mg three times per week (will continue on d/c as well for total of 10 doses); continue EPO 20,000 u qHD; Status: Acute (4) Chronic kidney disease-mineral and bone disorder Assessment & Plan: Phos controlled; holding phos binders for now due to patient's nausea; Status: Chronic (5) S/P BKA (below knee amputation) Status: Acute
[2018-03-14] MEDS: Latanoprost 0.005% Opht SOUTION OU SCH (23:29)
[2018-03-15] MEDS: Proshield Plus GEL TOP SCH ×3 (06:41→21:56)
[2018-03-15] MEDS: Silver Sulfadiazine 1% Cream (20 gm) TOP SCH (06:42)
[2018-03-15] MEDS: Levothyroxine 25 MCG TAB PO SCH (06:42)
[2018-03-15] MEDS: Insulin Regular 100 units/ml SC SCH ×4 (06:45→21:47)
[2018-03-15] MEDS: Fluticasone-Salmeterol 250-50mcg Diskus IH SCH ×2 (08:02→21:54)
[2018-03-15] MEDS: Bacitracin 500 Units/gm Oint Foilpak UD TOP SCH ×2 (08:04→17:01)
[2018-03-15] MEDS: Cholestyramine 4 gm/Pkt UD PO SCH ×2 (08:06→08:09)
[2018-03-15] MEDS: Multivitamin With Minerals Tab PO SCH (08:06)
[2018-03-15] MEDS: Insulin NPH Human 100 Units/ml Inj SC SCH (17:04)
[2018-03-15] MEDS: Latanoprost 0.005% Opht SOUTION OU SCH (21:56)
[2018-03-16] MEDS: Morphine 15 mg Immediate Release Tab PO PRN ×2 (00:09→16:44)
[2018-03-16] MEDS: Levothyroxine 25 MCG TAB PO SCH (06:26)
[2018-03-16] MEDS: Silver Sulfadiazine 1% Cream (20 gm) TOP SCH (06:30)
[2018-03-16] MEDS: Insulin Regular 100 units/ml SC SCH ×4 (06:30→21:12)
[2018-03-16] MEDS: Proshield Plus GEL TOP SCH ×3 (06:30→21:33)
--- NOTE | 2018-03-16 07:59 | CP.PCM.CON ---
History of Present Illness - History of Present Illness History of Present Illness: Pt seen for supportive therapy 7:30-7:50. Pt spoke of gains made and overall healing. Pt spoke of postive adjustment to his amputation and optimism about the future. Pt spoke of positive treatment by others, decline in anxiety and distress and looking forward to return home. Distress denied and patient adjusted well. Past Patient History - Infectious Disease Hx of Infectious Diseases: None - Tetanus Immunizations Tetanus Immunization: Up to Date - Past Medical History & Family History Past Medical History?: Yes - Past Social History Smoking Status: Never Smoked Alcohol: None Drugs: Denies - CARDIAC Hx Circulatory Problems: Yes (pvd) Hx Hypertension: Yes Hx Pacemaker: Yes (medtronic) Other/Comment: 2 stent placement - PULMONARY Hx Asthma: Yes Hx Chronic Obstructive Pulmonary Disease (COPD): Yes - NEUROLOGICAL HX Cerebrovascular Accident: Yes (r side weakness) - HEENT Hx HEENT Problems: Yes (BILATERAL EYE WITH BLURRY VISION) Hx Cataracts: Yes (HAD SX 09/25/12, r with iol) Hx Epistaxis: Yes Other/Comment: left eye cornea transplant,RENAL RETINOPATHY, glasses, blurred vision - RENAL Hx Dialysis: Yes Date of Last Dialysis Treatment: 02/28/18 Hx Renal Failure: Yes - ENDOCRINE/METABOLIC Hx Diabetes Mellitus Type 1: Yes Hx Diabetes Mellitus Type 2: Yes Hx Hypothyroidism: Yes - HEMATOLOGICAL/ONCOLOGICAL Hx AIDS: No Hx Anemia: Yes Hx Blood Transfusions: Yes Hx Blood Transfusion Reaction: No Hx Human Immunodeficiency Virus (HIV): No - INTEGUMENTARY Hx Dermatological Problems: Yes Other/Comment: generalized multiple skin discolorations and dry wounds over body , rle r ft dressing dry and intact all toes amputated chronic wound ulceration and foul odor heel ulceration gangrrene and bone exposed, rle skin discolorations +1 edema and tightness, inner right ankle1.5cm x 0.5cm deep red dry wound surrounded by pink red skin throbbing pain, healing small wounds to sacrum and b/l buttocks sharan,left hand 3rd finger 0/7cm x 0.5cm round dry brown wound, dry brown wound 1.5cm x 1.5cm to ball of left foot not opened - MUSCULOSKELETAL/RHEUMATOLOGICAL Hx Falls: Yes - GASTROINTESTINAL Hx Gastrointestinal Disorders: Yes (cdif 05/13/17) Hx Gall Bladder Disease: Yes (CHOLECYSTECTOMY) Hx Gastroesophageal Reflux: Yes Hx Liver Failure: Yes (CKD) Hx Pancreatitis: Yes Other/Comment: colon polyps, poor appetite - GENITOURINARY/GYNECOLOGICAL Hx Genitourinary Disorders: Yes (esrd on HD MWF) Hx Hematuria: Yes Hx Prostate Problems: Yes (bph) Hx Urinary Tract Infection: Yes - PSYCHIATRIC Hx Substance Use: No - SURGICAL HISTORY Hx Surgeries: Yes - ANESTHESIA Hx Anesthesia: Yes Hx Anesthesia Reactions: No Hx Malignant Hyperthermia: No Has any member of the family had a problem w/ anesthesia?: No Meds Allergies/Adverse Reactions: Allergies Allergy/AdvReac Type Severity Reaction Status Date / Time insulin aspart [From Novolog] Allergy Intermediate RASH Verified 03/01/18 16:57 moxifloxacin Allergy Intermediate RASH Verified 03/01/18 16:57 Penicillins Allergy Intermediate RASH Verified 03/01/18 16:57 insulin regular Allergy ITCHING Verified 03/01/18 16:57 [From Novolin R Regular U-100 Insuln] - Medications Medications: Current Medications Albuterol/Ipratropium (Duoneb 3 Mg/0.5 Mg (3 Ml) Ud) 3 ml IH RQ6 PRN PRN Reason: Shortness of Breath Last Admin: 03/04/18 08:35 Dose: 3 ml Alprazolam (Xanax) 0.25 mg PO HS PRN PRN Reason: Anxiety Stop: 03/17/18 14:38 Aspirin (Ecotrin) 81 mg PO DAILY ON [facility] OF [facility] Last Admin: 03/15/18 08:05 Dose: 81 mg Atorvastatin Calcium (Lipitor) 40 mg PO HS ON [facility] Last Admin: 03/15/18 21:55 Dose: 40 mg Bacitracin (Bacitracin) 1 ea TOP BID ON [facility] Last Admin: 03/15/18 17:01 Dose: 1 ea Capsaicin (Trixaicin Cream) 1 applic TOP Q6 PRN PRN Reason: bilateral wrist pain Last Admin: 03/10/18 17:15 Dose: 1 applic Cholestyramine Resin (Questran) 4 gm PO DAILY [facility] Last Admin: 03/15/18 08:09 Dose: Not Given Dextrose (Dextrose 50% Inj) 0 ml IV STAT PRN; Protocol PRN Reason: Hypoglycemia Protocol Dextrose (Glutose 15) 0 gm PO ONCE PRN; Protocol PRN Reason: Hypoglycemia Protocol Dimethicone (Proshield Plus Skin Protectant) 1 applic TOP Q8 [facility] Last Admin: 03/16/18 06:30 Dose: 1 applic Diphenhydramine HCl (Benadryl) 25 mg PO HS PRN PRN Reason: Insomnia Last Admin: 03/15/18 23:32 Dose: 25 mg Epoetin Sudeep (Procrit) 20,000 unit IV MWF [facility] Last Admin: 03/14/18 18:44 Dose: 20,000 unit Ergocalciferol (Drisdol 50,000 Intl Units Cap) 1 cap PO WED ON [facility] Fenofibrate (Tricor) 145 mg PO DAILY [facility] Last Admin: 03/15/18 08:06 Dose: 145 mg Glucagon (Glucagen Diagnostic Kit) 0 mg IM STAT PRN; Protocol PRN Reason: Hypoglycemia Protocol Hydralazine HCl (Apresoline) 25 mg PO BID [facility] Last Admin: 03/15/18 17:01 Dose: 25 mg Iron Sucrose 100 mg/ Sodium (Chloride) 105 mls @ 105 mls/hr IVPB MWF@1800 [facility] Insulin Human NPH (Humulin N) 25 units SC QPM ON [facility] Last Admin: 03/15/18 17:04 Dose: Not Given Insulin Human Regular (Humulin R) 0 units SC ACHS [facility] PRN Reason: Protocol Last Admin: 03/16/18 06:30 Dose: Not Given Latanoprost (Xalatan Opht) 1 drop OU HS [facility] Last Admin: 03/15/18 21:56 Dose: 1 drop Levothyroxine Sodium (Synthroid) 25 mcg PO 0630 [facility] Last Admin: 03/16/18 06:26 Dose: 25 mcg Metoprolol Tartrate (Lopressor) 25 mg PO BID [facility] Last Admin: 03/15/18 17:01 Dose: 25 mg Montelukast Sodium (Singulair) 10 mg PO HS [facility] Last Admin: 03/15/18 21:56 Dose: 10 mg Morphine Sulfate (Morphine Immediate Release Tab) 15 mg PO Q4 PRN PRN Reason: Pain scale 4-10 Last Admin: 03/16/18 00:09 Dose: 15 mg Multivitamins/Minerals (Therapeutic-M Tab) 1 tab PO DAILY [facility] Last Admin: 03/15/18 08:06 Dose: 1 tab Mupirocin (Bactroban Ointment) 1 applic TOP 0600,1800 [facility] Last Admin: 03/16/18 06:30 Dose: 1 applic Ondansetron HCl (Zofran Odt) 4 mg PO TID [facility] Last Admin: 03/15/18 17:02 Dose: 4 mg Pregabalin (Lyrica) 50 mg PO HS [facility] Last Admin: 03/15/18 21:55 Dose: 50 mg Fluticasone/Salmeterol (Advair Diskus 250/50) 1 puff IH Q12 [facility] Last Admin: 03/15/18 21:54 Dose: 1 puff Sevelamer Carbonate (Renvela) 1,600 mg PO WM@0800,1200,1700 [facility] Last Admin: 03/12/18 12:11 Dose: 1,600 mg Silver Sulfadiazine (Silvadene 1% 20 Gm) 1 ea TOP 0600 [facility] Last Admin: 03/16/18 06:30 Dose: 1 applic Sodium Chloride ([place] Nasal [place]) 1 sprays HÉCTOR Q2 PRN PRN Reason: nasal congestion. Last Admin: 03/02/18 10:02 Dose: 1 spray Ticagrelor (Brilinta) 90 mg PO BID ON [facility] Last Admin: 03/15/18 17:02 Dose: 90 mg Trazodone HCl (Desyrel) 50 mg PO [facility] Last Admin: 03/15/18 21:55 Dose: 50 mg Results - Vital Signs Recent Vital Signs: Last Vital Signs Temp 98.1 F 03/15/18 20:17 Pulse 60 03/15/18 20:17 Resp 20 03/15/18 20:17 BP 98/52 L 03/15/18 20:17 Pulse Ox 100 03/15/18 20:17 - Labs Result Diagrams: 03/12/18 20:22 03/12/18 20:22 Labs: Laboratory Results - last 24 hr 03/13/18 03/14/18 03/14/18 20:51 06:07 11:49 POC Glucose (mg/dL) 257 H 198 H 221 H 03/14/18 03/15/18 03/15/18 20:51 06:45 11:23 POC Glucose (mg/dL) 144 H 179 H 284 H 03/15/18 16:28 POC Glucose (mg/dL) 135 H
[2018-03-16] MEDS: Multivitamin With Minerals Tab PO SCH (08:02)
[2018-03-16] MEDS: Fluticasone-Salmeterol 250-50mcg Diskus IH SCH ×2 (08:02→21:31)
[2018-03-16] MEDS: Bacitracin 500 Units/gm Oint Foilpak UD TOP SCH ×2 (08:03→17:00)
[2018-03-16] MEDS: Cholestyramine 4 gm/Pkt UD PO SCH (08:10)
--- NOTE | 2018-03-16 10:48 | CP.PCM.PN ---
Subjective - Date & Time of Evaluation Date of Evaluation: 03/16/18 Time of Evaluation: 09:30 - Subjective Subjective: GI progress note for Dr. Hernandez Pt seen and examined this AM. Patient still endorses nausea with the smell and consumption of food, well controlled with zofran. Had a large bowel movement yesterday of normal caliber and consistency, no blood. Denies abdominal pain Objective - Vital Signs/Intake and Output Vital Signs (last 24 hours): Temp Pulse Resp BP Pulse Ox 98 F 89 18 120/80 98 03/16/18 07:59 03/16/18 08:16 03/16/18 07:59 03/16/18 08:16 03/16/18 07:59 Intake and Output: 03/16/18 03/16/18 06:59 18:59 Intake Total 120 Balance 120 - Medications Medications: Current Medications Albuterol/Ipratropium (Duoneb 3 Mg/0.5 Mg (3 Ml) Ud) 3 ml IH RQ6 PRN PRN Reason: Shortness of Breath Last Admin: 03/04/18 08:35 Dose: 3 ml Alprazolam (Xanax) 0.25 mg PO HS PRN PRN Reason: Anxiety Stop: 03/17/18 14:38 Aspirin (Ecotrin) 81 mg PO DAILY [facility] Last Admin: 03/16/18 08:14 Dose: Not Given Atorvastatin Calcium (Lipitor) 40 mg PO HS [facility] Last Admin: 03/15/18 21:55 Dose: 40 mg Bacitracin (Bacitracin) 1 ea TOP BID [facility] Last Admin: 03/16/18 08:03 Dose: 1 ea Capsaicin (Trixaicin Cream) 1 applic TOP Q6 PRN PRN Reason: bilateral wrist pain Last Admin: 03/10/18 17:15 Dose: 1 applic Cholestyramine Resin (Questran) 4 gm PO DAILY [facility] Last Admin: 03/16/18 08:10 Dose: 4 gm Dextrose (Dextrose 50% Inj) 0 ml IV STAT PRN; Protocol PRN Reason: Hypoglycemia Protocol Dextrose (Glutose 15) 0 gm PO ONCE PRN; Protocol PRN Reason: Hypoglycemia Protocol Dimethicone (Proshield Plus Skin Protectant) 1 applic TOP Q8 [facility] Last Admin: 03/16/18 06:30 Dose: 1 applic Diphenhydramine HCl (Benadryl) 25 mg PO HS PRN PRN Reason: Insomnia Last Admin: 03/15/18 23:32 Dose: 25 mg Epoetin Sudeep (Procrit) 20,000 unit IV MWF [facility] Last Admin: 03/14/18 18:44 Dose: 20,000 unit Ergocalciferol (Drisdol 50,000 Intl Units Cap) 1 cap PO WED [facility] Fenofibrate (Tricor) 145 mg PO DAILY [facility] Last Admin: 03/16/18 08:04 Dose: 145 mg Glucagon (Glucagen Diagnostic Kit) 0 mg IM STAT PRN; Protocol PRN Reason: Hypoglycemia Protocol Hydralazine HCl (Apresoline) 25 mg PO BID [facility] Last Admin: 03/16/18 08:07 Dose: Not Given Iron Sucrose 100 mg/ Sodium (Chloride) 105 mls @ 105 mls/hr IVPB MWF@1800 [facility] Insulin Human NPH (Humulin N) 25 units SC QPM [facility] Last Admin: 03/15/18 17:04 Dose: Not Given Insulin Human Regular (Humulin R) 0 units SC ACHS [facility] PRN Reason: Protocol Last Admin: 03/16/18 06:30 Dose: Not Given Latanoprost (Xalatan Opht) 1 drop OU HS [facility] Last Admin: 03/15/18 21:56 Dose: 1 drop Levothyroxine Sodium (Synthroid) 25 mcg PO 0630 [facility] Last Admin: 03/16/18 06:26 Dose: 25 mcg Metoprolol Tartrate (Lopressor) 25 mg PO BID [facility] Last Admin: 03/16/18 08:16 Dose: Not Given Montelukast Sodium (Singulair) 10 mg PO HS [facility] Last Admin: 03/15/18 21:56 Dose: 10 mg Morphine Sulfate (Morphine Immediate Release Tab) 15 mg PO Q4 PRN PRN Reason: Pain scale 4-10 Last Admin: 03/16/18 00:09 Dose: 15 mg Multivitamins/Minerals (Therapeutic-M Tab) 1 tab PO DAILY [facility] Last Admin: 03/16/18 08:02 Dose: 1 tab Mupirocin (Bactroban Ointment) 1 applic TOP 0600,1800 [facility] Last Admin: 03/16/18 06:30 Dose: 1 applic Ondansetron HCl (Zofran Odt) 4 mg PO TID [facility] Last Admin: 03/16/18 08:11 Dose: 4 mg Pregabalin (Lyrica) 50 mg PO HS [facility] Last Admin: 03/15/18 21:55 Dose: 50 mg Fluticasone/Salmeterol (Advair Diskus 250/50) 1 puff IH Q12 [facility] Last Admin: 03/16/18 08:02 Dose: 1 puff Sevelamer Carbonate (Renvela) 1,600 mg PO WM@0800,1200,1700 [facility] Last Admin: 03/12/18 12:11 Dose: 1,600 mg Silver Sulfadiazine (Silvadene 1% 20 Gm) 1 ea TOP 0600 [facility] Last Admin: 03/16/18 06:30 Dose: 1 applic Sodium Chloride ([place] Nasal [place]) 1 sprays HÉCTOR Q2 PRN PRN Reason: nasal congestion. Last Admin: 03/02/18 10:02 Dose: 1 spray Ticagrelor (Brilinta) 90 mg PO BID [facility] Last Admin: 03/16/18 08:13 Dose: Not Given Trazodone HCl (Desyrel) 50 mg PO [facility] Last Admin: 03/15/18 21:55 Dose: 50 mg - Labs Labs: 03/12/18 20:22 03/12/18 20:22 - Constitutional Appears: Well, Non-toxic, No Acute Distress - Head Exam Head Exam: ATRAUMATIC, NORMOCEPHALIC - Eye Exam Eye Exam: Normal appearance. absent: Conjunctival injection, Scleral icterus - ENT Exam ENT Exam: Mucous Membranes Moist, Normal Oropharynx - Respiratory Exam Respiratory Exam: NORMAL BREATHING PATTERN. absent: Accessory Muscle Use, Respiratory Distress - Cardiovascular Exam Cardiovascular Exam: RRR - GI/Abdominal Exam GI & Abdominal Exam: Soft. absent: Distended, Tenderness - Neurological Exam Neurological Exam: Alert, Awake, Oriented x3 - Psychiatric Exam Psychiatric exam: Normal Affect, Normal Mood - Skin Skin Exam: Dry, Intact, Normal Color, Warm Assessment and Plan - Assessment and Plan (Free Text) Assessment: 52M with constipation and nausea, constipation resolved Plan: Continue current regimen No indication for GI intervention at this time Follow up with Dr. Donato upon D/C for any further complaints or concerns Discussed with Dr. Mary Haro, PGY2
--- NOTE | 2018-03-16 16:38 | CP.PCM.PN ---
Subjective - Date & Time of Evaluation Date of Evaluation: 03/16/18 Time of Evaluation: 16:35 - Subjective Subjective: Patient seen just before start of HD; reports some sob; weight pre-HD 83.2 kg; still some nausea, decreased PO intake but tolerating diet; Objective - Vital Signs/Intake and Output Vital Signs (last 24 hours): Temp Pulse Resp BP Pulse Ox 98 F 89 18 120/80 98 03/16/18 07:59 03/16/18 08:16 03/16/18 07:59 03/16/18 08:16 03/16/18 07:59 Intake and Output: 03/16/18 03/16/18 06:59 18:59 Intake Total 120 400 Balance 120 400 - Medications Medications: Current Medications Albuterol/Ipratropium (Duoneb 3 Mg/0.5 Mg (3 Ml) Ud) 3 ml IH RQ6 PRN PRN Reason: Shortness of Breath Last Admin: 03/04/18 08:35 Dose: 3 ml Alprazolam (Xanax) 0.25 mg PO HS PRN PRN Reason: Anxiety Stop: 03/17/18 14:38 Aspirin (Ecotrin) 81 mg PO DAILY [facility] Last Admin: 03/16/18 08:14 Dose: Not Given Atorvastatin Calcium (Lipitor) 40 mg PO HS [facility] Last Admin: 03/15/18 21:55 Dose: 40 mg Bacitracin (Bacitracin) 1 ea TOP BID [facility] Last Admin: 03/16/18 08:03 Dose: 1 ea Capsaicin (Trixaicin Cream) 1 applic TOP Q6 PRN PRN Reason: bilateral wrist pain Last Admin: 03/10/18 17:15 Dose: 1 applic Cholestyramine Resin (Questran) 4 gm PO DAILY [facility] Last Admin: 03/16/18 08:10 Dose: 4 gm Dextrose (Glutose 15) 0 gm PO ONCE PRN; Protocol PRN Reason: Hypoglycemia Protocol Dimethicone (Proshield Plus Skin Protectant) 1 applic TOP Q8 [facility] Last Admin: 03/16/18 06:30 Dose: 1 applic Diphenhydramine HCl (Benadryl) 25 mg PO HS PRN PRN Reason: Insomnia Last Admin: 03/15/18 23:32 Dose: 25 mg Epoetin Sudeep (Procrit) 20,000 unit IV MWF [facility] Last Admin: 03/14/18 18:44 Dose: 20,000 unit Ergocalciferol (Drisdol 50,000 Intl Units Cap) 1 cap PO WED [facility] Fenofibrate (Tricor) 145 mg PO DAILY [facility] Last Admin: 03/16/18 08:04 Dose: 145 mg Glucagon (Glucagen Diagnostic Kit) 0 mg IM STAT PRN; Protocol PRN Reason: Hypoglycemia Protocol Hydralazine HCl (Apresoline) 25 mg PO BID [facility] Last Admin: 03/16/18 08:07 Dose: Not Given Iron Sucrose 100 mg/ Sodium (Chloride) 105 mls @ 105 mls/hr IVPB MWF@1800 [facility] Insulin Human NPH (Humulin N) 25 units SC QPM [facility] Last Admin: 03/15/18 17:04 Dose: Not Given Insulin Human Regular (Humulin R) 0 units SC ACHS [facility] PRN Reason: Protocol Last Admin: 03/16/18 12:08 Dose: 4 units Latanoprost (Xalatan Opht) 1 drop OU [facility] Last Admin: 03/15/18 21:56 Dose: 1 drop Levothyroxine Sodium (Synthroid) 25 mcg PO 0630 [facility] Last Admin: 03/16/18 06:26 Dose: 25 mcg Metoprolol Tartrate (Lopressor) 25 mg PO BID [facility] Last Admin: 03/16/18 08:16 Dose: Not Given Montelukast Sodium (Singulair) 10 mg PO [facility] Last Admin: 03/15/18 21:56 Dose: 10 mg Morphine Sulfate (Morphine Immediate Release Tab) 15 mg PO Q4 PRN PRN Reason: Pain scale 4-10 Last Admin: 03/16/18 00:09 Dose: 15 mg Multivitamins/Minerals (Therapeutic-M Tab) 1 tab PO DAILY [facility] Last Admin: 03/16/18 08:02 Dose: 1 tab Mupirocin (Bactroban Ointment) 1 applic TOP 0600,1800 [facility] Last Admin: 03/16/18 06:30 Dose: 1 applic Ondansetron HCl (Zofran Odt) 4 mg PO TID [facility] Last Admin: 03/16/18 12:05 Dose: 4 mg Pregabalin (Lyrica) 50 mg PO [facility] Last Admin: 03/15/18 21:55 Dose: 50 mg Fluticasone/Salmeterol (Advair Diskus 250/50) 1 puff IH Q12 [facility] Last Admin: 03/16/18 08:02 Dose: 1 puff Sevelamer Carbonate (Renvela) 1,600 mg PO WM@0800,1200,1700 [facility] Last Admin: 03/12/18 12:11 Dose: 1,600 mg Silver Sulfadiazine (Silvadene 1% 20 Gm) 1 ea TOP 0600 [facility] Last Admin: 03/16/18 06:30 Dose: 1 applic Sodium Chloride ([place] Nasal [place]) 1 sprays HÉCTOR Q2 PRN PRN Reason: nasal congestion. Last Admin: 03/02/18 10:02 Dose: 1 spray Ticagrelor (Brilinta) 90 mg PO BID [facility] Last Admin: 03/16/18 08:13 Dose: Not Given Trazodone HCl (Desyrel) 50 mg PO HS [facility] Last Admin: 03/15/18 21:55 Dose: 50 mg - Labs Labs: 03/12/18 20:22 03/12/18 20:22 - Constitutional Appears: Non-toxic, No Acute Distress - Eye Exam Eye Exam: Normal appearance - Respiratory Exam Respiratory Exam: Clear to Ausculation Bilateral. absent: Respiratory Distress - Cardiovascular Exam Cardiovascular Exam: RRR. absent: Gallop, Rubs - GI/Abdominal Exam GI & Abdominal Exam: Soft. absent: Distended, Tenderness - Extremities Exam Additional comments: mild b/l leg edema, improved; - Neurological Exam Neurological Exam: Alert, Awake - Psychiatric Exam Psychiatric exam: Normal Affect, Normal Mood. absent: Agitated - Skin Skin Exam: Warm. absent: Cyanosis Assessment and Plan (1) ESRD on hemodialysis Assessment & Plan: Stable electrolyte status per labs earlier this week; stable volume status; UF goal of 3L today on HD, next HD for Monday at outpatient unit; Status: Chronic (2) Hypertensive CKD, ESRD on dialysis Assessment & Plan: Normotensive; refused meds earlier today; continue same meds (meotprolol 50 and hydralazine 25 both bid); Status: Chronic (3) Anemia in CKD (chronic kidney disease) Assessment & Plan: Hgb below goal; continue EPO on HD; starting IV iron loading on HD; Status: Acute (4) Chronic kidney disease-mineral and bone disorder Assessment & Plan: Sevelamer being held temporarily due to nausea; should restart binders once PO intake back to normal; Status: Chronic (5) S/P BKA (below knee amputation) Assessment & Plan: Pain relatively controlled; on lyrica 50 mg qhs, dosed for ESRD; Status: Acute
[2018-03-16] MEDS: Insulin NPH Human 100 Units/ml Inj SC SCH (18:00)
[2018-03-16] MEDS: Epoetin Alfa 20000 UNIT/ML Inj IV SCH (18:06)
[2018-03-16] MEDS: Latanoprost 0.005% Opht SOUTION OU SCH (21:37)
[2018-03-17 01:32] VITALS: RESP 20
[2018-03-17] MEDS: Levothyroxine 25 MCG TAB PO SCH (05:55)
[2018-03-17] MEDS: Proshield Plus GEL TOP SCH (05:56)
[2018-03-17] MEDS: Silver Sulfadiazine 1% Cream (20 gm) TOP SCH (05:57)
[2018-03-17] MEDS: Insulin Regular 100 units/ml SC SCH ×2 (06:37→11:54)
[2018-03-17 08:09] VITALS: TEMP 98; O2SAT 98
[2018-03-17] MEDS: Fluticasone-Salmeterol 250-50mcg Diskus IH SCH (08:09)
[2018-03-17] MEDS: Multivitamin With Minerals Tab PO SCH (08:10)
[2018-03-17] MEDS: Cholestyramine 4 gm/Pkt UD PO SCH (08:10)
[2018-03-17 08:12] VITALS: PULSE 89
[2018-03-17] MEDS: Bacitracin 500 Units/gm Oint Foilpak UD TOP SCH (09:00)
[2018-03-17 11:55] VITALS: BP 130/70
--- NOTE | 2018-03-17 12:20 | CP.PCM.PN ---
Subjective - Date & Time of Evaluation Date of Evaluation: 03/17/18 Time of Evaluation: 12:18 - Subjective Subjective: Patient seen prior to d/c home and pain medications discussed and adjusted. He is being sent home in [facility] with explanations given. Objective - Vital Signs/Intake and Output Vital Signs (last 24 hours): Temp Pulse Resp BP Pulse Ox 98 F 89 20 130/70 98 03/17/18 08:08 03/17/18 09:00 03/17/18 08:08 03/17/18 09:00 03/17/18 08:08 Intake and Output: 03/17/18 03/17/18 06:59 18:59 Intake Total 400 Balance 400 - Medications Medications: Current Medications Albuterol/Ipratropium (Duoneb 3 Mg/0.5 Mg (3 Ml) Ud) 3 ml IH RQ6 PRN PRN Reason: Shortness of Breath Last Admin: 03/04/18 08:35 Dose: 3 ml Alprazolam (Xanax) 0.25 mg PO HS PRN PRN Reason: Anxiety Stop: 03/17/18 14:38 Aspirin (Ecotrin) 81 mg PO DAILY [facility] Last Admin: 03/17/18 08:10 Dose: 81 mg Atorvastatin Calcium (Lipitor) 40 mg PO HS [facility] Last Admin: 03/16/18 21:43 Dose: 40 mg Bacitracin (Bacitracin) 1 ea TOP BID [facility] Last Admin: 03/17/18 09:00 Dose: 1 ea Capsaicin (Trixaicin Cream) 1 applic TOP Q6 PRN PRN Reason: bilateral wrist pain Last Admin: 03/10/18 17:15 Dose: 1 applic Cholestyramine Resin (Questran) 4 gm PO DAILY [facility] Last Admin: 03/17/18 08:10 Dose: Not Given Dextrose (Glutose 15) 0 gm PO ONCE PRN; Protocol PRN Reason: Hypoglycemia Protocol Dimethicone (Proshield Plus Skin Protectant) 1 applic TOP Q8 [facility] Last Admin: 03/17/18 05:56 Dose: 1 applic Diphenhydramine HCl (Benadryl) 25 mg PO HS PRN PRN Reason: Insomnia Last Admin: 03/16/18 22:21 Dose: 25 mg Epoetin Sudeep (Procrit) 20,000 unit IV MWF [facility] Last Admin: 08/31/18 18:06 Dose: 20,000 unit Ergocalciferol (Drisdol 50,000 Intl Units Cap) 1 cap PO WED [facility] Fenofibrate (Tricor) 145 mg PO DAILY [facility] Last Admin: 03/17/18 08:09 Dose: 145 mg Glucagon (Glucagen Diagnostic Kit) 0 mg IM STAT PRN; Protocol PRN Reason: Hypoglycemia Protocol Hydralazine HCl (Apresoline) 25 mg PO BID [facility] Last Admin: 03/17/18 09:00 Dose: 25 mg Iron Sucrose 100 mg/ Sodium (Chloride) 105 mls @ 105 mls/hr IVPB MWF@1800 [facility] Last Admin: 03/16/18 18:08 Dose: 105 mls/hr Insulin Human NPH (Humulin N) 25 units SC QPM [facility] Last Admin: 03/16/18 18:00 Dose: Not Given Insulin Human Regular (Humulin R) 0 units SC ACHS [facility] PRN Reason: Protocol Last Admin: 03/17/18 11:54 Dose: 8 units Latanoprost (Xalatan Opht) 1 drop OU [facility] Last Admin: 03/16/18 21:37 Dose: 1 drop Levothyroxine Sodium (Synthroid) 25 mcg PO 0630 [facility] Last Admin: 03/17/18 05:55 Dose: 25 mcg Metoprolol Tartrate (Lopressor) 25 mg PO BID [facility] Last Admin: 03/17/18 08:11 Dose: 25 mg Montelukast Sodium (Singulair) 10 mg PO [facility] Last Admin: 03/16/18 21:42 Dose: 10 mg Morphine Sulfate (Morphine Immediate Release Tab) 15 mg PO Q4 PRN PRN Reason: Pain scale 4-10 Last Admin: 03/16/18 16:44 Dose: 15 mg Multivitamins/Minerals (Therapeutic-M Tab) 1 tab PO DAILY [facility] Last Admin: 03/17/18 08:10 Dose: 1 tab Mupirocin (Bactroban Ointment) 1 applic TOP 0600,1800 [facility] Last Admin: 03/17/18 05:56 Dose: 1 applic Ondansetron HCl (Zofran Odt) 4 mg PO TID [facility] Last Admin: 03/17/18 08:04 Dose: 4 mg Pregabalin (Lyrica) 50 mg PO [facility] Last Admin: 03/16/18 21:35 Dose: 50 mg Fluticasone/Salmeterol (Advair Diskus 250/50) 1 puff IH Q12 [facility] Last Admin: 03/17/18 08:09 Dose: 1 puff Sevelamer Carbonate (Renvela) 1,600 mg PO WM@0800,1200,1700 [facility] Last Admin: 03/12/18 12:11 Dose: 1,600 mg Silver Sulfadiazine (Silvadene 1% 20 Gm) 1 ea TOP 0600 [facility] Last Admin: 03/17/18 05:57 Dose: 1 applic Sodium Chloride ([place] Nasal [place]) 1 sprays HÉCTOR Q2 PRN PRN Reason: nasal congestion. Last Admin: 03/02/18 10:02 Dose: 1 spray Ticagrelor (Brilinta) 90 mg PO BID [facility] Last Admin: 03/17/18 08:11 Dose: 90 mg Trazodone HCl (Desyrel) 50 mg PO HS [facility] Last Admin: 03/16/18 21:42 Dose: 50 mg - Labs Labs: 03/12/18 20:22 03/12/18 20:22
[2018-03-17] MEDS ORDERED: oxyCODONE 5 mg Immediate Release Tab PO PRN (14:35)
== END 2018-03-17 12:00 | disposition home health service (06) | DRG 559 ==
PROVIDERS: ADMIT Family Medicine; ATTEND Family Medicine
PROC: 3E0F7GC Introduction of Other Therapeutic Substance into Respiratory Tract, Via Natural or Artificial Opening (ICD-10-PCS; principal; 2018-03-01)
PROC: 5A1D70Z Performance of Urinary Filtration, Intermittent, Less than 6 Hours Per Day (ICD-10-PCS; 2018-03-02)
PROC: F07Z9FZ Gait Training/Functional Ambulation Treatment using Assistive, Adaptive, Supportive or Protective Equipment (ICD-10-PCS; 2018-03-02)
PROC: F07L6FZ Therapeutic Exercise Treatment of Musculoskeletal System - Lower Back / Lower Extremity using Assistive, Adaptive, Supportive or Protective Equipment (ICD-10-PCS; 2018-03-02)
PROC: F07M6FZ Therapeutic Exercise Treatment of Musculoskeletal System - Whole Body using Assistive, Adaptive, Supportive or Protective Equipment (ICD-10-PCS; 2018-03-02)
PROC: F08Z4FZ Home Management Treatment using Assistive, Adaptive, Supportive or Protective Equipment (ICD-10-PCS; 2018-03-02)
PROC: 5A1D70Z Performance of Urinary Filtration, Intermittent, Less than 6 Hours Per Day (ICD-10-PCS; 2018-03-07)
PROC: 5A1D70Z Performance of Urinary Filtration, Intermittent, Less than 6 Hours Per Day (ICD-10-PCS; 2018-03-09)
PROC: 5A1D70Z Performance of Urinary Filtration, Intermittent, Less than 6 Hours Per Day (ICD-10-PCS; 2018-03-12)
PROC: 5A1D70Z Performance of Urinary Filtration, Intermittent, Less than 6 Hours Per Day (ICD-10-PCS; 2018-03-14)
PROC: 5A1D70Z Performance of Urinary Filtration, Intermittent, Less than 6 Hours Per Day (ICD-10-PCS; 2018-03-16)
DX: Z47.81 Encounter for orthopedic aftercare following surgical amputation (principal); N18.6 End stage renal disease; I13.2 Hypertensive heart and chronic kidney disease with heart failure and with stage 5 chronic kidney disease, or end stage renal disease; K90.9 Intestinal malabsorption, unspecified; L97.409 Non-pressure chronic ulcer of unspecified heel and midfoot with unspecified severity; Z89.511 Acquired absence of right leg below knee; Z95.0 Presence of cardiac pacemaker; Z95.5 Presence of coronary angioplasty implant and graft; Z99.2 Dependence on renal dialysis; Z98.42 Cataract extraction status, left eye; Z98.41 Cataract extraction status, right eye; Z96.1 Presence of intraocular lens; Z89.439 Acquired absence of unspecified foot; K82.9 Disease of gallbladder, unspecified; Z79.2 Long term (current) use of antibiotics; D63.1 Anemia in chronic kidney disease; D69.6 Thrombocytopenia, unspecified; E03.9 Hypothyroidism, unspecified; E10.22 Type 1 diabetes mellitus with diabetic chronic kidney disease; E10.319 Type 1 diabetes mellitus with unspecified diabetic retinopathy without macular edema; E10.42 Type 1 diabetes mellitus with diabetic polyneuropathy; E10.43 Type 1 diabetes mellitus with diabetic autonomic (poly)neuropathy; E10.51 Type 1 diabetes mellitus with diabetic peripheral angiopathy without gangrene; E10.621 Type 1 diabetes mellitus with foot ulcer; E10.65 Type 1 diabetes mellitus with hyperglycemia; F41.9 Anxiety disorder, unspecified; G47.33 Obstructive sleep apnea (adult) (pediatric); I25.10 Atherosclerotic heart disease of native coronary artery without angina pectoris; I27.20 Pulmonary hypertension, unspecified; I50.9 Heart failure, unspecified; J44.9 Chronic obstructive pulmonary disease, unspecified; K21.9 Gastro-esophageal reflux disease without esophagitis; K31.84 Gastroparesis; K52.9 Noninfective gastroenteritis and colitis, unspecified; K59.00 Constipation, unspecified; Z86.010 Personal history of colon polyps; N40.0 Benign prostatic hyperplasia without lower urinary tract symptoms; Z79.4 Long term (current) use of insulin; Z79.899 Other long term (current) drug therapy; Z86.73 Personal history of transient ischemic attack (TIA), and cerebral infarction without residual deficits; Z87.440 Personal history of urinary (tract) infections; L89.152 Pressure ulcer of sacral region, stage 2